=== PATIENT | male | born 1930 | race Caucasian/White ===

== ENCOUNTER 2016-11-06 09:24 | Emergency (ER) | payer MEDICARE, BC ==
[2016-11-06] MEDS ORDERED: NS 0.9% 1000 ML* 1,000 ML IV SCH (09:45)
--- NOTE | 2016-11-06 10:02 | RAD ---
HISTORY: Stroke COMPARISONS: June 24, 2013 VIEWS:1: Single frontal portable view of the chest at 9:45 AM FINDINGS: LINES AND TUBES: None. CARDIOMEDIASTINAL SILHOUETTE: The cardiomediastinal silhouette is normal for portable technique. PLEURA: The costophrenic angles are sharp. No pleural abnormalities are noted. LUNG PARENCHYMA: The lungs are clear. ABDOMEN: The upper abdomen is clear. There is no subphrenic gas. BONES AND SOFT TISSUES: No bone or soft tissue abnormalities are noted. IMPRESSION: NO ACTIVE CARDIOPULMONARY DISEASE.
--- NOTE | 2016-11-06 10:04 | RAD ---
HISTORY: Fall, altered mental status COMPARISONS: None TECHNIQUE: Multiple contiguous axial CT scans were obtained of the cervical spine without intravenous contrast, with coronal and sagittal multiplanar reformations. FINDINGS: BRAIN: The visualized brain is unremarkable CENTRAL CANAL: Evaluation of the central canal is limited on CT technique; however, there is no obvious canalicular mass or epidural hemorrhage. ALIGNMENT: The alignment is normal, without subluxation or dislocation. VERTEBRAL BODIES: There is diffuse osteopenia. There is multilevel anterolateral marginal osteophyte formation. There is no displaced fracture. JOINTS: There is diffuse facet and uncovertebral osteoarthritis MUSCULATURE: Unremarkable INTERVERTEBRAL DISCS: There is diffuse loss of intervertebral disc height. AXIAL IMAGES: C2-C3: There is bilateral facet hypertrophy. There is no significant osseous neural foraminal narrowing or central canal stenosis. C3-C4: There is a broad-based disc osteophyte complex with bilateral uncovertebral and facet hypertrophy. There is moderate right and mild left neural foraminal narrowing. There is mild narrowing of the central canal. C4-C5: There is a broad-based disc osteophyte complex with bilateral uncovertebral and facet hypertrophy. There is severe bilateral neural foraminal narrowing. There is moderate narrowing of the central canal. C5-C6: There is bilateral uncovertebral facet hypertrophy. There is severe left neural foraminal narrowing. There is moderate narrowing of the central canal. C6-C7: There is a broad-based disc osteophyte complex. There is bilateral uncovertebral and facet hypertrophy. There is severe bilateral neural foraminal narrowing. There is moderate narrowing of the central canal. C7-T1: There is no osseous neural foraminal narrowing or central canal stenosis. SOFT TISSUES: The visualized soft tissues of the neck are unremarkable. The prevertebral fat stripe is preserved. OTHER: None. IMPRESSION: 1. OSTEOPENIA. 2. DEGENERATIVE DISC DISEASE AND OSTEOARTHRITIS DESCRIBED ABOVE. 3. NO ACUTE OSSEOUS INJURY TO THE CERVICAL SPINE
--- NOTE | 2016-11-06 10:06 | RAD ---
INDICATION: Neurologic changes, code [id number]. COMPARISON: Comparison is made with a prior CT and MRI of the brain from June 24, 2013. TECHNIQUE: Contiguous axial sections of the brain were obtained from the skull base to the vertex without contrast. FINDINGS: The ventricles, cisterns and sulci are enlarged consistent with diffuse atrophy. There are multiple focal areas of decreased density in the subcortical and periventricular white matter suggestive of moderate chronic small vessel ischemic changes. There is no evidence for hemorrhage. There are calcifications within the cavernous portion of the internal carotid arteries and vertebral arteries. There is mucosal thickening within the left maxillary sinus. The paranasal sinuses and mastoid air cells otherwise appear clear. The results of this exam were called to the referring clinician at 0959 hours. IMPRESSION: 1. NO EVIDENCE FOR GROSS ACUTE INFARCT, MASS EFFECT OR HEMORRHAGE. 2. ATROPHY AND MODERATE CHRONIC SMALL VESSEL ISCHEMIC CHANGES.
[2016-11-06 10:13] LABS: Hematocrit 37 % (42-52); Hemoglobin 12.1 g/dl (14.0-18.0); Mean Corpuscular HGB Conc 33 g/dl (31-36); Mean Corpuscular Hemoglobin 31 pg (27-31); Mean Corpuscular Volume 95 fL (80-94); Mean Platelet Volume 9 um3 (7.4-10.4); Red Blood Count 3.93 10^6/ul (4.0-5.4); Red Cell Distribution Width 15 % (10.5-15); White Blood Count 5.2 10^3/ul (3.5-10.8)
[2016-11-06 10:36] LABS: Troponin I 0.03 ng/mL (<0.04)
[2016-11-06 10:44] LABS: ALT 8 U/L (7-52); AST 16 U/L (13-39); Albumin 3.9 g/dL (3.2-5.2); Alkaline Phosphatase 79 U/L (34-104); Anion Gap 6 mmol/L (2-11); BUN/Creatinine Ratio 16.1 (8-20); Blood Urea Nitrogen 20 mg/dL (6-24); C Reactive Protein < 1.00 mg/L (< 5.00); CO2 Carbon Dioxide 30 mmol/L (22-32); Calcium 9.3 mg/dL (8.6-10.3); Chloride 104 mmol/L (101-111); Cholesterol 145 mg/dL; EGFR African American 71.3 (>60); EGFR Non-African American 55.4 (>60); Globulin 3.1 g/dL (2-4); Glucose 120 mg/dL (70-100); HDL Cholesterol 53.7 mg/dL; LDL Cholesterol 76 mg/dL; Lipase 19 U/L (11.0-82.0); Potassium 3.8 mmol/L (3.5-5.0); Sodium 140 mmol/L (133-145); Triglycerides 75 mg/dL
[2016-11-06 10:58] LABS: TSH (Thyroid Stimulating Horm) 0.89 mcIU/mL (0.34-5.60)
[2016-11-06 12:12] LABS: Urine Bacteria Absent (Absent); Urine Bilirubin Negative (Negative); Urine Glucose Negative (Negative); Urine Nitrite Negative (Negative)
[2016-11-06 13:08] VITALS: BP 142/87
--- NOTE | 2016-11-16 12:16 | ED ---
Gauri Sanders Alok, scribed for Benson Daly MD on 11/06/16 at 0934 . Neurological HPI - HPI Summary HPI Summary: 85 y/o male presents to the ED BIBA called by his neighbor following possible TIA. Pt reports feeling confusion and bilateral weakness this morning following waking up at approximately 0630 after feeling fine the previous night. This bilateral weakness caused the pt to fall out of bed this morning. EMS arrived on scene at approximately 0900 and reports that pt's HR was originally irregular , then bradycardic, then NSR during transit to ED. EMS also notes that pt vomited once during transit as well. EMS denies observing any focal weakness by the pt. Pt states that currently his mental state has improved since earlier this morning. Pt denies any CP, SOB, BROCK, or neck pain. Pt states he has a PMHx of a stroke and HTD. - History of Current Complaint Chief Complaint: EDAltMentalStatus Stated Complaint: POSS STROKE Hx Obtained From: Patient, EMS Onset/Duration: Gradual Onset, Started hours ago, Resolved Timing: Intermittent Episodes Lasting: - minutes Onset Severity: Moderate Current Severity: Moderate Pain Intensity: 0 Pain Scale Used: 0-10 Numeric Character: Weak, Confusion Aggravating: Nothing Alleviating: Nothing Associated Signs and Symptoms: Positive: Confusion, Weakness. Negative: Headache, Fever, Neck Pain/Stiffness, Chest Pain, Shortness of Breath - Allergy/Home Medications Allergies/Adverse Reactions: Allergies Allergy/AdvReac Type Severity Reaction Status Date / Time Tamsulosin Allergy IMBALANCE Verified 11/06/16 10:29 PMH/Surg Hx/FS Hx/Imm Hx Endocrine/Hematology History: Denies: Hx Diabetes Cardiovascular History: Reports: Hx Hypercholesterolemia - HLD, Hx Hypertension - ON MEDICATION FOR Denies: Hx Pacemaker/ICD Respiratory History: Denies: Hx Asthma GI History: Reports: Other GI Disorders - HERNIA REPAIR History: Reports: Hx Benign Prostatic Hyperplasia Denies: Hx Dialysis, Hx Renal Disease Musculoskeletal History: Reports: Other Musculoskeletal History - RIGHT HIP REPAIR Denies: Hx Scoliosis Sensory History: Reports: Hx Cataracts, Hx Contacts or Glasses - READING Denies: Hx Hearing Aid Opthamlomology History: Reports: Hx Cataracts, Hx Contacts or Glasses - READING Neurological History: Reports: Other Neuro Impairments/Disorders - ALZHEIMERS DISEASE Psychiatric History: Denies: Hx Panic Disorder - Surgical History Surgery Procedure, Year, and Place: HIP REPLACEMENT, PROSTATE BIOPSIES, HERNIA REPAIR Hx Anesthesia Reactions: No Infectious Disease History: No Infectious Disease History: Denies: Traveled Outside the [place] in Last 30 Days - Family History Known Family History: Positive: Other Family History: No Malignant Hyperthermia. No Anesthesia Reaction - Social History Occupation: Retired Alcohol Use: None Substance Use Type: Reports: None Smoking Status (MU): Never Smoked Tobacco Review of Systems Negative: Fever Negative: Chest Pain Negative: Shortness Of Breath Positive: Vomiting Neurological: Other - Confusion Positive: Weakness. Negative: Headache All Other Systems Reviewed And Are Negative: Yes Physical Exam - Summary Physical Exam Summary: Appearance: Well-appearing, no pain distress Skin: Warm, skin color reflects adequate perfusion, dry Head/Face: Normal head/face Eyes: EOMI, PERRL ENT: Normal ENT inspection Neck: Supple, nontender Resp: CTA, breath sounds present Cardio: Bradycardic Abd: Nontender, Soft Bowel: Present Musculo: Normal, Strength, ROM intact Neuro: Normal, sensory/motor intact AxO x3. No focal weakness Psych: Affect/ mood appropriate Triage Information Reviewed: Yes Vital Signs On Initial Exam: Initial Vitals Temp Pulse Resp BP Pulse Ox 97.7 F 59 19 161/78 100 11/06/16 09:28 11/06/16 09:28 11/06/16 09:28 11/06/16 09:28 11/06/16 09:28 Vital Signs Reviewed: Yes Diagnostics - Vital Signs Vital Signs Temp Pulse Resp BP Pulse Ox 11/06/16 09:28 97.7 F 59 19 161/78 100 - Laboratory Lab Results: Lab Results 11/06/16 11/06/16 11/06/16 Range/Units 09:55 09:55 09:55 WBC 5.2 (3.5-10.8) 10^3/ul RBC 3.93 L (4.0-5.4) 10^6/ul Hgb 12.1 L (14.0-18.0) g/dl Hct 37 L (42-52) % MCV 95 H (80-94) fL MCH 31 (27-31) pg MCHC 33 (31-36) g/dl RDW 15 (10.5-15) % Plt Count 244 (150-450) 10^3/ul MPV 9 (7.4-10.4) um3 Neut % (Auto) 73.4 (38-83) % Lymph % (Auto) 20.4 L (25-47) % Mer[place] % (Auto) 4.8 (1-9) % Eos % (Auto) 0.7 (0-6) % Baso % (Auto) 0.7 (0-2) % Absolute Neuts (auto) 3.8 (1.5-7.7) 10^3/ul Absolute Lymphs (auto) 1.1 (1.0-4.8) 10^3/ul Absolute Monos (auto) 0.2 (0-0.8) 10^3/ul Absolute Eos (auto) 0 (0-0.6) 10^3/ul Absolute Basos (auto) 0 (0-0.2) 10^3/ul Absolute Nucleated RBC 0 10^3/ul Nucleated RBC % 0 INR (Anticoag Therapy) 1.03 (0.89-1.11) APTT 27.5 (26.0-36.3) seconds Sodium 140 (133-145) mmol/L Potassium 3.8 (3.5-5.0) mmol/L Chloride 104 (101-111) mmol/L Carbon Dioxide 30 (22-32) mmol/L Anion Gap 6 (2-11) mmol/L BUN 20 (6-24) mg/dL Creatinine 1.24 H (0.67-1.17) mg/dL Est GFR ( Amer) 71.3 (>60) Est GFR (Non-Af Amer) 55.4 (>60) BUN/Creatinine Ratio 16.1 (8-20) Glucose 120 H (70-100) mg/dL Lactic Acid (0.5-2.0) mmol/L Calcium 9.3 (8.6-10.3) mg/dL Magnesium 2.0 (1.9-2.7) mg/dL Total Bilirubin 0.70 (0.2-1.0) mg/dL AST 16 (13-39) U/L ALT 8 (7-52) U/L Alkaline Phosphatase 79 (34-104) U/L Troponin I 0.03 (<0.04) ng/mL C-Reactive Protein < 1.00 (< 5.00) mg/L B-Natriuretic Peptide ( - 100) pg/mL Total Protein 7.0 (6.4-8.9) g/dL Albumin 3.9 (3.2-5.2) g/dL Globulin 3.1 (2-4) g/dL Albumin/Globulin Ratio 1.3 (1-3) Triglycerides 75 mg/dL Cholesterol 145 mg/dL LDL Cholesterol 76 mg/dL HDL Cholesterol 53.7 mg/dL Lipase 19 (11.0-82.0) U/L TSH 0.89 (0.34-5.60) mcIU/mL Urine Color Urine Appearance Urine pH (5-9) Ur Specific Points (1.010-1.030) Urine Protein (Negative) Urine Ketones (Negative) Urine Blood (Negative) Urine Nitrate (Negative) Urine Bilirubin (Negative) Urine Urobilinogen (Negative) Ur Leukocyte Esterase (Negative) Urine WBC (Auto) (Absent) Urine RBC (Auto) (Absent) Ur Squamous Epith Cells (Absent) Urine Bacteria (Absent) Urine Glucose (Negative) Blood Type Antibody Screen 11/06/16 11/06/16 11/06/16 Range/Units 09:55 09:55 09:55 WBC (3.5-10.8) 10^3/ul RBC (4.0-5.4) 10^6/ul Hgb (14.0-18.0) g/dl Hct (42-52) % MCV (80-94) fL MCH (27-31) pg MCHC (31-36) g/dl RDW (10.5-15) % Plt Count (150-450) 10^3/ul MPV (7.4-10.4) um3 Neut % (Auto) (38-83) % Lymph % (Auto) (25-47) % Merrick % (Auto) (1-9) % Eos % (Auto) (0-6) % Baso % (Auto) (0-2) % Absolute Neuts (auto) (1.5-7.7) 10^3/ul Absolute Lymphs (auto) (1.0-4.8) 10^3/ul Absolute Monos (auto) (0-0.8) 10^3/ul Absolute Eos (auto) (0-0.6) 10^3/ul Absolute Basos (auto) (0-0.2) 10^3/ul Absolute Nucleated RBC 10^3/ul Nucleated RBC % INR (Anticoag Therapy) (0.89-1.11) APTT (26.0-36.3) seconds Sodium (133-145) mmol/L Potassium (3.5-5.0) mmol/L Chloride (101-111) mmol/L Carbon Dioxide (22-32) mmol/L Anion Gap (2-11) mmol/L BUN (6-24) mg/dL Creatinine (0.67-1.17) mg/dL Est GFR ( Amer) (>60) Est GFR (Non-Af Amer) (>60) BUN/Creatinine Ratio (8-20) Glucose (70-100) mg/dL Lactic Acid 1.5 (0.5-2.0) mmol/L Calcium (8.6-10.3) mg/dL Magnesium (1.9-2.7) mg/dL Total Bilirubin (0.2-1.0) mg/dL AST (13-39) U/L ALT (7-52) U/L Alkaline Phosphatase (34-104) U/L Troponin I (<0.04) ng/mL C-Reactive Protein (< 5.00) mg/L B-Natriuretic Peptide 232 H ( - 100) pg/mL Total Protein (6.4-8.9) g/dL Albumin (3.2-5.2) g/dL Globulin (2-4) g/dL Albumin/Globulin Ratio (1-3) Triglycerides mg/dL Cholesterol mg/dL LDL Cholesterol mg/dL HDL Cholesterol mg/dL Lipase (11.0-82.0) U/L TSH (0.34-5.60) mcIU/mL Urine Color Urine Appearance Urine pH (5-9) Ur Specific Points (1.010-1.030) Urine Protein (Negative) Urine Ketones (Negative) Urine Blood (Negative) Urine Nitrate (Negative) Urine Bilirubin (Negative) Urine Urobilinogen (Negative) Ur Leukocyte Esterase (Negative) Urine WBC (Auto) (Absent) Urine RBC (Auto) (Absent) Ur Squamous Epith Cells (Absent) Urine Bacteria (Absent) Urine Glucose (Negative) Blood Type A Positive Antibody Screen Negative 11/06/16 Range/Units 11:43 WBC (3.5-10.8) 10^3/ul RBC (4.0-5.4) 10^6/ul Hgb (14.0-18.0) g/dl Hct (42-52) % MCV (80-94) fL MCH (27-31) pg MCHC (31-36) g/dl RDW (10.5-15) % Plt Count (150-450) 10^3/ul MPV (7.4-10.4) um3 Neut % (Auto) (38-83) % Lymph % (Auto) (25-47) % Merrick % (Auto) (1-9) % Eos % (Auto) (0-6) % Baso % (Auto) (0-2) % Absolute Neuts (auto) (1.5-7.7) 10^3/ul Absolute Lymphs (auto) (1.0-4.8) 10^3/ul Absolute Monos (auto) (0-0.8) 10^3/ul Absolute Eos (auto) (0-0.6) 10^3/ul Absolute Basos (auto) (0-0.2) 10^3/ul Absolute Nucleated RBC 10^3/ul Nucleated RBC % INR (Anticoag Therapy) (0.89-1.11) APTT (26.0-36.3) seconds Sodium (133-145) mmol/L Potassium (3.5-5.0) mmol/L Chloride (101-111) mmol/L Carbon Dioxide (22-32) mmol/L Anion Gap (2-11) mmol/L BUN (6-24) mg/dL Creatinine (0.67-1.17) mg/dL Est GFR ( Amer) (>60) Est GFR (Non-Af Amer) (>60) BUN/Creatinine Ratio (8-20) Glucose (70-100) mg/dL Lactic Acid (0.5-2.0) mmol/L Calcium (8.6-10.3) mg/dL Magnesium (1.9-2.7) mg/dL Total Bilirubin (0.2-1.0) mg/dL AST (13-39) U/L ALT (7-52) U/L Alkaline Phosphatase (34-104) U/L Troponin I (<0.04) ng/mL C-Reactive Protein (< 5.00) mg/L B-Natriuretic Peptide ( - 100) pg/mL Total Protein (6.4-8.9) g/dL Albumin (3.2-5.2) g/dL Globulin (2-4) g/dL Albumin/Globulin Ratio (1-3) Triglycerides mg/dL Cholesterol mg/dL LDL Cholesterol mg/dL HDL Cholesterol mg/dL Lipase (11.0-82.0) U/L TSH (0.34-5.60) mcIU/mL Urine Color Yellow Urine Appearance Cloudy Urine pH 6.0 (5-9) Ur Specific Points 1.019 (1.010-1.030) Urine Protein 1+(30 mg/dl) H (Negative) Urine Ketones Negative (Negative) Urine Blood Negative (Negative) Urine Nitrate Negative (Negative) Urine Bilirubin Negative (Negative) Urine Urobilinogen Negative (Negative) Ur Leukocyte Esterase Negative (Negative) Urine WBC (Auto) Trace(0-5/hpf) (Absent) Urine RBC (Auto) 2+(6-10/hpf) H (Absent) Ur Squamous Epith Cells Present H (Absent) Urine Bacteria Absent (Absent) Urine Glucose Negative (Negative) Blood Type Antibody Screen Result Diagrams: 11/06/16 09:55 11/06/16 09:55 Lab Statement: Any lab studies that have been ordered have been reviewed, and results considered in the medical decision making process. - Radiology CXR Xray Interpretation: Positive (See Comments) - IMPRESSION: NO EVIDENCE OF CARDIOPULMONARY DISEASE Radiology Interpretation Completed By: Radiologist - CT Brain CT CT Interpretation: Positive (See Comments) - IMPRESSION: 1. NO EVIDENCE FOR GROSS ACUTE INFARCT, MASS EFFECT OR HEMORRHAGE. 2. ATROPHY AND MODERATE CHRONIC SMALL VESSEL ISCHEMIC CHANGES. CT Interpretation Completed By: Radiologist Cervical Spine CT CT Interpretation: Positive (See Comments) - IMPRESSION: 1. OSTEOPENIA. 2. DEGENERATIVE DISC DISEASE AND OSTEOARTHRITIS DESCRIBED ABOVE. 3. NO ACUTE OSSEOUS INJURY TO THE CERVICAL SPINE CT Interpretation Completed By: Radiologist - EKG 0921 Cardiac Rate: NL EKG Rhythm: Sinus Rhythm - 54 bpm Ectopy: None EKG Interpretation: ST elevation V1, V2. No reciprocal changes. Re-Evaluation - Re-Evaluation First Eval Re-Evaluation Time: 11:48 Change: Improved - Sensorium has cleared somewhat Comment: Pt has expressed decision to return home with his son Course/Dx - Diagnoses Provider Diagnoses: ALTERED MENTAL STATUS During the Visit The Following Alert/Code Occurred: Code Rios - 2611 - Physician Notifications Discussed Care of Patient With: Dr. Hurley (Hospitalist) @ 4115 - discussed possibility pt's admittance to hospital given pt refusal to be admitted Discharge - Discharge Plan Condition: Stable Disposition: HOME Patient Education Materials: Altered Mental Status (ED) Referrals: Reid Herrera MD [Primary Care Provider] - Additional Instructions: FOLLOW UP WITH YOUR DOCTOR. RETURN TO THE EMERGENCY DEPARTMENT FOR ANY WORSENING OF YOUR CONDITION; WEAKNESS , CONFUSION, CHEST PAIN, SHORTNESS OF BREATH OR QUESTIONS OR CONCERNS. The documentation as recorded by the Gauri muñoz Alok accurately reflects the service I personally performed and the decisions made by me, Benson Daly MD.
== END 2016-11-06 13:08 | disposition home or self-care (01) ==
LOC: ED 09:24
DX: R50.9 Fever, unspecified (principal); R11.2 Nausea with vomiting, unspecified; R19.7 Diarrhea, unspecified; F17.210 Nicotine dependence, cigarettes, uncomplicated
CPT/HCPCS: 36415; 70450; 71010; 72125; 80053; 80061; 81003; 81015; 83605; 83690; 83735; 83880; 84443; 84484; 85025; 85610; 85730; 86140; 86850; 86900; 86901; 93005; 99283

== ENCOUNTER 2016-11-12 06:18 | Emergency (ER) | payer MEDICARE, BC ==
[2016-11-12 10:25] LABS: Urine Bacteria Absent (Absent); Urine Bilirubin Negative (Negative); Urine Glucose Negative (Negative); Urine Nitrite Negative (Negative)
[2016-11-12 11:27] VITALS: BP 158/94
--- NOTE | 2016-11-12 11:44 | ED ---
Pipe Sanders Benjamin, scribed for Jesus Young MD on 11/12/16 at 0759 . GI/ HPI - HPI Summary HPI Summary: 85yo male BIB EMS for unable to void. Pt also reported pain in the genital area. After arrival, Pt was able to void and states he now feels better. Denies any dysuria or urinary frequency. No hx of same symptoms. Now he is asymptomatic. He has no other complaints. - History of Current Complaint Chief Complaint: EDUrogenitalProblems Time Seen by Provider: 11/12/16 07:26 Stated Complaint: DIFF URINATING Hx Obtained From: Patient, Family/Commercial Real Estate Paralegal Onset/Duration: Started Hours Ago, Resolved Timing: Constant Severity: Severe Current Severity: Mild Pain Intensity: 10 Location of Pain: Groin Associated Signs and Symptoms: Positive: Negative - Allergy/Home Medications Allergies/Adverse Reactions: Allergies Allergy/AdvReac Type Severity Reaction Status Date / Time Tamsulosin Allergy IMBALANCE Verified 11/06/16 10:29 PMH/Surg Hx/FS Hx/Imm Hx Endocrine/Hematology History: Denies: Hx Diabetes Cardiovascular History: Reports: Hx Hypercholesterolemia - HLD, Hx Hypertension - ON MEDICATION FOR Denies: Hx Pacemaker/ICD Respiratory History: Denies: Hx Asthma GI History: Reports: Other GI Disorders - HERNIA REPAIR History: Reports: Hx Benign Prostatic Hyperplasia Denies: Hx Dialysis, Hx Renal Disease Musculoskeletal History: Reports: Other Musculoskeletal History - RIGHT HIP REPAIR Denies: Hx Scoliosis Sensory History: Reports: Hx Cataracts, Hx Contacts or Glasses - READING Denies: Hx Hearing Aid Opthamlomology History: Reports: Hx Cataracts, Hx Contacts or Glasses - READING Neurological History: Reports: Other Neuro Impairments/Disorders - ALZHEIMERS DISEASE Psychiatric History: Denies: Hx Panic Disorder - Surgical History Surgery Procedure, Year, and Place: HIP REPLACEMENT, PROSTATE BIOPSIES, HERNIA REPAIR Hx Anesthesia Reactions: No Infectious Disease History: No Infectious Disease History: Denies: Traveled Outside the [place] in Last 30 Days - Family History Known Family History: Negative: Cardiac Disease, Hypertension, Diabetes - Social History Occupation: Retired Lives: With Family Alcohol Use: None Substance Use Type: Reports: None Smoking Status (MU): Never Smoked Tobacco Review of Systems Constitutional: Negative Eyes: Negative ENT: Negative Cardiovascular: Negative Respiratory: Negative Gastrointestinal: Negative Genitourinary: Negative Musculoskeletal: Negative Skin: Negative Neurological: Negative Psychological: Normal All Other Systems Reviewed And Are Negative: Yes Physical Exam - Summary Physical Exam Summary: Vital signs: reviewed General: Patient is comfortable lying in stretcher with no signs of distress HEENT: within normal limits Lungs: CTA B/L CVS: S1 & S2 present. No murmurs appreciated. ABDOMEN: Soft, non-tender. No signs of distention. No rebound no guarding, and no masses palpated. Bowel sounds are normal. EXTREMITIES: FROM in all major joints, no edema, no cyanosis or clubbing. NEURO: Alert and oriented x 2 (patient's base line). No acute neurological deficits. Speech is normal and follows commands. SKIN: Dry and warm Triage Information Reviewed: Yes Vital Signs On Initial Exam: Initial Vitals Temp Pulse Resp BP Pulse Ox 98.8 F 58 16 150/76 99 11/12/16 06:28 11/12/16 06:28 11/12/16 06:28 11/12/16 06:28 11/12/16 06:28 Vital Signs Reviewed: Yes - [place] Coma Scale Coma Scale Total: 14 Diagnostics - Vital Signs Vital Signs Temp Pulse Resp BP Pulse Ox 11/12/16 06:28 98.8 F 58 16 150/76 99 - Laboratory Lab Statement: Any lab studies that have been ordered have been reviewed, and results considered in the medical decision making process. GIGU Course/Dx - Course Assessment/Plan: UA show negative for UTI. Initially pt came for difficulty urinating. However, pt was urinated 3 times in the ED. At this point there is no need for urinary folly catheter. No dysuria or difficulty urinating or changes in frequency. At this point pt is hemodynamically stable and A&Ox2 which is baseline for him. Pt will be D/C with son. Social work aware of condition and protective services social worker reports that the pt is safe to D/C. I discussed all the findings and test results with the patient. Patient was instructed to return to the emergency room immediately if any of the symptoms return or worsens. Plan of care was discussed with the patient and understands and agrees. All questions were answered at patient satisfaction. There were no further complaints or concerns. Lung exam before discharge: CTA B/L. Good air exchange. No wheezing or crackles heard. CVS: S1 and S2 present. No murmurs appreciated. Patient is alert and oriented x 3. Patient is hemodynamically stable. Patient will be discharged home with follow up graphic editor in the next 2-3 days - Diagnoses Differential Diagnoses - Male: Urinary Tract Infection - Urinary retention, BPH Provider Diagnoses: Difficulty urinating, Urinary retention Discharge - Discharge Plan Condition: Stable Disposition: HOME Patient Education Materials: Urinary Retention in Men (ED) Referrals: Reid Herrera MD [Primary Care Provider] - The documentation as recorded by the Pipe muñoz Benjamin accurately reflects the service I personally performed and the decisions made by Hector choi Walter, MD.
== END 2016-11-12 11:40 | disposition home or self-care (01) ==
LOC: ED 06:18
DX: R33.9 Retention of urine, unspecified (principal)
CPT/HCPCS: 81003; 81015; 99282

== ENCOUNTER 2017-10-13 16:52 | Emergency (ER) | payer MEDICARE, BC ==
[2017-10-13 19:02] LABS: ABS Basophils 0 10^3/ul (0-0.2); ABS Eosinophils 0.1 10^3/ul (0-0.6); ABS Lymphocytes 1.5 10^3/ul (1.0-4.8); ABS Monocytes 0.6 10^3/ul (0-0.8); ABS Neutrophils 3.4 10^3/ul (1.5-7.7); ABS Nucleated RBC 0 10^3/ul; Eosinophil % 2.5 % (0-6); Hematocrit 36 % (42-52); Lymphocyte % 25.7 % (25-47); Mean Corpuscular HGB Conc 33 g/dl (31-36); Mean Corpuscular Hemoglobin 32 pg (27-31); Mean Corpuscular Volume 97 fL (80-94); Mean Platelet Volume 8 um3 (7.4-10.4); Nucleated Red Blood Cells % 0; Platelet Count 220 10^3/ul (150-450); Red Blood Count 3.72 10^6/ul (4.0-5.4); Red Cell Distribution Width 14 % (10.5-15); White Blood Count 5.7 10^3/ul (3.5-10.8)
[2017-10-13 19:09] LABS: EGFR Non-African American 53.3 (>60)
[2017-10-13 21:32] VITALS: BP 114/69
--- NOTE | 2017-10-13 22:05 | ED ---
La Sanders Julia, scribed for Chivo Ortiz MD on 10/13/17 at 1745 . Altered Mental Status - HPI Summary HPI Summary: This patient is a 86 year old M BIBA to [facility] accompanied by [place] staff member due to SI. The [place] staff states patient was saying I just want to kill myself, Just give me a knife. She states that he threw himself on the floor when the staff was not taking him seriously. She reports a similar incident that spontaneously resolved 10/11/17. Patient currently states Im fine . Patient has dementia. - History Of Current Complaint Chief Complaint: EDAltMentalStatus Stated Complaint: MHE Time Seen by Provider: 10/13/17 17:21 Hx Obtained From: Family/Sample Selector Onset/Duration: Resolved Timing: Intermittent - episodic Severity Currently: None Character: Agitation - Si Associated Signs And Symptoms: Positive: Negative Related History: Similar Episode/Diagnosed As: - recent similar episode Has Suicidal: Thoughts - Allergies/Home Medications Allergies/Adverse Reactions: Allergies Allergy/AdvReac Type Severity Reaction Status Date / Time MS Tamsulosin [Tamsulosin] Allergy IMBALANCE Verified 10/13/17 18:00 Home Medications: Home Medications busPIRone TAB* [Buspar TAB*] 5 mg PO BID 10/13/17 [History Confirmed 10/13/17] PMH/Surg Hx/FS Hx/Imm Hx Endocrine/Hematology History: Denies: Hx Diabetes Cardiovascular History: Reports: Hx Hypercholesterolemia - HLD, Hx Hypertension - ON MEDICATION FOR Denies: Hx Pacemaker/ICD Respiratory History: Denies: Hx Asthma GI History: Reports: Other GI Disorders - HERNIA REPAIR History: Reports: Hx Benign Prostatic Hyperplasia Denies: Hx Dialysis, Hx Renal Disease Musculoskeletal History: Reports: Other Musculoskeletal History - RIGHT HIP REPAIR Denies: Hx Scoliosis Sensory History: Reports: Hx Cataracts, Hx Contacts or Glasses - READING Denies: Hx Hearing Aid Opthamlomology History: Reports: Hx Cataracts, Hx Contacts or Glasses - READING Neurological History: Reports: Hx Dementia, Other Neuro Impairments/Disorders - ALZHEIMERS DISEASE Psychiatric History: Denies: Hx Panic Disorder - Surgical History Surgery Procedure, Year, and Place: HIP REPLACEMENT, PROSTATE BIOPSIES, HERNIA REPAIR Hx Anesthesia Reactions: No Infectious Disease History: No Infectious Disease History: Denies: Traveled Outside the US in Last 30 Days - Family History Known Family History: Negative: Cardiac Disease, Hypertension, Diabetes - Social History Alcohol Use: None Substance Use Type: Reports: None Smoking Status (MU): Never Smoked Tobacco Review of Systems Positive: Other - SI, currently resolved All Other Systems Reviewed And Are Negative: Yes - Comments Additional Review of Systems Comments: ROS is limited due to patient's dementia. Physical Exam - Summary Physical Exam Summary: Appearance: The patient is well-nourished in no acute distress and in no acute pain. Skin: The skin is warm and dry and skin color reflects adequate perfusion. HEENT: The head is normocephalic and atraumatic. The pupils are equal and reactive. The conjunctivae are clear and without drainage. Nares are patent and without drainage. Mouth reveals moist mucous membranes and the throat is without erythema and exudate. The external ears are intact. The ear canals are patent and without drainage. The tympanic membranes are intact. Neck: the neck is supple with full range of motion and non-tender. There are no carotid bruits. There is no neck vein distension. Respiratory: Chest is non-tender. Lungs are clear to auscultation and breath sounds are symmetrical and equal. Cardiovascular: Heart is regular rate and rhythm. There is no murmur or rub auscultated. There is no peripheral edema and pulses are symmetrical and equal. Abdomen: The abdomen is soft and non-tender. There are normal bowel sounds heard in all four quadrants and there is no organomegaly palpated. Musculoskeletal: There is no back tenderness noted. Extremities are non-tender with full range of motion. There is good capillary refill. There is no peripheral edema or calf tenderness elicited. Neurological: Patient is alert and oriented to person, place and time. The patient has symmetrical motor strength in all four extremities. Cranial nerves are grossly intact. Deep tendon reflexes are symmetrical and equal in all four extremities. Psychiatric: The patient has an appropriate affect and does not exhibit any anxiety or depression. Patient is calm. Triage Information Reviewed: Yes Vital Signs On Initial Exam: Initial Vitals Temp Pulse Resp BP Pulse Ox 99.2 F 55 16 125/62 98 10/13/17 17:09 10/13/17 17:09 10/13/17 17:09 10/13/17 17:10/13/17 17:09 Vital Signs Reviewed: Yes Diagnostics - Vital Signs Vital Signs Temp Pulse Resp BP Pulse Ox 10/13/17 17:09 99.2 F 55 16 125/62 98 - Laboratory Lab Results: Lab Results 10/13/17 10/13/17 Range/Units 18:45 18:45 WBC 5.7 (3.5-10.8) 10^3/ul RBC 3.72 L (4.0-5.4) 10^6/ul Hgb 12.0 L (14.0-18.0) g/dl Hct 36 L (42-52) % MCV 97 H (80-94) fL MCH 32 H (27-31) pg MCHC 33 (31-36) g/dl RDW 14 (10.5-15) % Plt Count 220 (150-450) 10^3/ul MPV 8 (7.4-10.4) um3 Neut % (Auto) 60.5 (38-83) % Lymph % (Auto) 25.7 (25-47) % [place] % (Auto) 10.6 H (1-9) % Eos % (Auto) 2.5 (0-6) % Baso % (Auto) 0.7 (0-2) % Absolute Neuts (auto) 3.4 (1.5-7.7) 10^3/ul Absolute Lymphs (auto) 1.5 (1.0-4.8) 10^3/ul Absolute Monos (auto) 0.6 (0-0.8) 10^3/ul Absolute Eos (auto) 0.1 (0-0.6) 10^3/ul Absolute Basos (auto) 0 (0-0.2) 10^3/ul Absolute Nucleated RBC 0 10^3/ul Nucleated RBC % 0 Sodium 136 (133-145) mmol/L Potassium 4.6 (3.5-5.0) mmol/L Chloride 103 (101-111) mmol/L Carbon Dioxide 30 (22-32) mmol/L Anion Gap 3 (2-11) mmol/L BUN 33 H (6-24) mg/dL Creatinine 1.28 H (0.67-1.17) mg/dL Est GFR ( Amer) 68.5 (>60) Est GFR (Non-Af Amer) 53.3 (>60) BUN/Creatinine Ratio 25.8 H (8-20) Glucose 98 (70-100) mg/dL Calcium 8.7 (8.6-10.3) mg/dL Total Bilirubin 0.40 (0.2-1.0) mg/dL AST 22 (13-39) U/L ALT 15 (7-52) U/L Alkaline Phosphatase 64 (34-104) U/L C-Reactive Protein < 1.00 (< 5.00) mg/L Total Protein 6.4 (6.4-8.9) g/dL Albumin 3.9 (3.2-5.2) g/dL Globulin 2.5 (2-4) g/dL Albumin/Globulin Ratio 1.6 (1-3) Result Diagrams: 10/13/17 18:45 10/13/17 18:45 Lab Statement: Any lab studies that have been ordered have been reviewed, and results considered in the medical decision making process. Altered Mental Statu Course/Dx - Course Course Of Treatment: Mr. Nguyen has had a couple episodes of being agitated and expressing SI in the last couple of weeks. He was fine here with no sign of infection or obvious problem. I recommended F/U with Dr. Herrera if problems continue. - Diagnoses Discharge Diagnoses: Alzheimer's dementia with behavioral disturbance Discharge - Discharge Plan Condition: Stable Disposition: HOME Patient Education Materials: Suicide Prevention for Older Adults (ED) Referrals: Redi Herrera MD [Primary Care Provider] - 1 Week Additional Instructions: RETURN TO THE EMERGENCY DEPARTMENT FOR CHANGING OR WORSENING SYMPTOMS. The documentation as recorded by the La muñoz Julia accurately reflects the service I personally performed and the decisions made by me, Chivo Ortiz MD.
== END 2017-10-13 20:30 | disposition home or self-care (01) ==
LOC: ED 16:52
DX: G30.9 Alzheimer's disease, unspecified (principal); F02.80 Dementia in other diseases classified elsewhere, unspecified severity, without behavioral disturbance, psychotic disturbance, mood disturbance, and anxiety; E78.00 Pure hypercholesterolemia, unspecified; E78.5 Hyperlipidemia, unspecified; I10 Essential (primary) hypertension; R45.851 Suicidal ideations
CPT/HCPCS: 36415; 80053; 85025; 86140; 99282

== ENCOUNTER 2017-10-19 16:25 | Emergency (ER) | payer MEDICARE, BC ==
[2017-10-19] MEDS ORDERED: NS 0.9% 1000 ML* 1,000 ML IV ONE (17:07)
[2017-10-19 17:33] LABS: ABS Basophils 0.1 10^3/ul (0-0.2); ABS Eosinophils 0.1 10^3/ul (0-0.6); ABS Lymphocytes 1.3 10^3/ul (1.0-4.8); ABS Monocytes 0.5 10^3/ul (0-0.8); ABS Neutrophils 3.7 10^3/ul (1.5-7.7); ABS Nucleated RBC 0 10^3/ul; Eosinophil % 1.4 % (0-6); Hematocrit 37 % (42-52); Hemoglobin 12.4 g/dl (14.0-18.0); Lymphocyte % 22.8 % (25-47); Mean Corpuscular HGB Conc 34 g/dl (31-36); Mean Corpuscular Hemoglobin 32 pg (27-31); Mean Corpuscular Volume 96 fL (80-94); Mean Platelet Volume 8 um3 (7.4-10.4); Nucleated Red Blood Cells % 0; Platelet Count 217 10^3/ul (150-450); Red Blood Count 3.85 10^6/ul (4.0-5.4); Red Cell Distribution Width 14 % (10.5-15); White Blood Count 5.7 10^3/ul (3.5-10.8)
[2017-10-19 18:51] LABS: Urine Appearance Clear; Urine Blood Negative (Negative); Urine Color Yellow; Urine Ketones Negative (Negative); Urine Protein Negative (Negative); Urine Specific Gravity 1.016 (1.010-1.030); Urine Urobilinogen Negative (Negative)
[2017-10-19 20:06] VITALS: BP 149/81
--- NOTE | 2017-10-20 20:36 | ED ---
Gustavo Sanders Natalie, scribed for Samantha Gamez MD on 10/19/17 at 1911 . GI/ HPI - HPI Summary HPI Summary: The patient is an 86 y/o M presenting to ED c/o decreased urinary output. Per [facility] aide, the patient is able to void, but little comes out. He has been drinking a lot of water, but long-term staff says that he has been complaining of not being able to urinate easily. The patient doesnt have a fever or flank pain. The long-term has been trying to obtain a UA on the patient for the last four days, but the patient has been unsuccessful in voiding enough. He has dementia, making it difficult for him to recall events on his own. - History of Current Complaint Chief Complaint: EDUrogenitalProblems Time Seen by Provider: 10/19/17 16:59 Stated Complaint: URINARY ISSUES Hx Obtained From: Family/Medical Lead Hx From Patient Unobtainable Due To: Dementia Onset/Duration: Started Days Ago Timing: Lasting Days Severity: Severe Current Severity: Severe Pain Intensity: 0 Associated Signs and Symptoms: Negative: Fever, Flank Pain - Allergy/Home Medications Allergies/Adverse Reactions: Allergies Allergy/AdvReac Type Severity Reaction Status Date / Time tamsulosin Allergy Unknown Verified 10/19/17 16:53 Reaction Details Home Medications: Home Medications Acetaminophen [Tylenol Extra Strength] 500 mg PO BID 10/19/17 [History Confirmed 10/19/17] Sertraline* [Zoloft*] 25 mg PO DAILY 10/19/17 [History Confirmed 10/19/17] PMH/Surg Hx/FS Hx/Imm Hx Endocrine/Hematology History: Denies: Hx Diabetes Cardiovascular History: Reports: Hx Hypercholesterolemia - HLD, Hx Hypertension - ON MEDICATION FOR Denies: Hx Pacemaker/ICD Respiratory History: Denies: Hx Asthma GI History: Reports: Other GI Disorders - HERNIA REPAIR History: Reports: Hx Benign Prostatic Hyperplasia Denies: Hx Dialysis, Hx Renal Disease Musculoskeletal History: Reports: Other Musculoskeletal History - RIGHT HIP REPAIR Denies: Hx Scoliosis Sensory History: Reports: Hx Cataracts, Hx Contacts or Glasses - READING Denies: Hx Hearing Aid Opthamlomology History: Reports: Hx Cataracts, Hx Contacts or Glasses - READING Neurological History: Reports: Hx Dementia, Other Neuro Impairments/Disorders - ALZHEIMERS DISEASE Psychiatric History: Denies: Hx Panic Disorder - Surgical History Surgery Procedure, Year, and Place: HIP REPLACEMENT, PROSTATE BIOPSIES, HERNIA REPAIR Hx Anesthesia Reactions: No Infectious Disease History: No Infectious Disease History: Denies: Traveled Outside the US in Last 30 Days - Family History Known Family History: Negative: Cardiac Disease, Hypertension, Diabetes - Social History Alcohol Use: None Substance Use Type: Reports: None Smoking Status (MU): Never Smoked Tobacco Physical Exam Vital Signs On Initial Exam: Initial Vitals Temp Pulse Resp BP Pulse Ox 97.5 F 64 18 139/80 99 10/19/17 16:31 10/19/17 16:31 10/19/17 16:31 10/19/17 16:31 10/19/17 16:31 Diagnostics - Vital Signs Vital Signs Temp Pulse Resp BP Pulse Ox 10/19/17 18:00 56 99 10/19/17 17:00 53 97 10/19/17 16:49 140/77 10/19/17 16:46 56 97 10/19/17 16:31 97.5 F 64 18 139/80 99 - Laboratory Lab Results: Lab Results 10/19/17 10/19/17 10/19/17 Range/Units 17:24 17:24 17:24 WBC 5.7 (3.5-10.8) 10^3/ul RBC 3.85 L (4.0-5.4) 10^6/ul Hgb 12.4 L (14.0-18.0) g/dl Hct 37 L (42-52) % MCV 96 H (80-94) fL MCH 32 H (27-31) pg MCHC 34 (31-36) g/dl RDW 14 (10.5-15) % Plt Count 217 (150-450) 10^3/ul MPV 8 (7.4-10.4) um3 Neut % (Auto) 65.7 (38-83) % Lymph % (Auto) 22.8 L (25-47) % Giles % (Auto) 9.0 (1-9) % Eos % (Auto) 1.4 (0-6) % Baso % (Auto) 1.1 (0-2) % Absolute Neuts (auto) 3.7 (1.5-7.7) 10^3/ul Absolute Lymphs (auto) 1.3 (1.0-4.8) 10^3/ul Absolute Monos (auto) 0.5 (0-0.8) 10^3/ul Absolute Eos (auto) 0.1 (0-0.6) 10^3/ul Absolute Basos (auto) 0.1 (0-0.2) 10^3/ul Absolute Nucleated RBC 0 10^3/ul Nucleated RBC % 0 Sodium 134 (133-145) mmol/L Potassium 4.5 (3.5-5.0) mmol/L Chloride 101 (101-111) mmol/L Carbon Dioxide 27 (22-32) mmol/L Anion Gap 6 (2-11) mmol/L BUN 31 H (6-24) mg/dL Creatinine 1.33 H (0.67-1.17) mg/dL Est GFR ( Amer) 65.6 (>60) Est GFR (Non-Af Amer) 51.0 (>60) BUN/Creatinine Ratio 23.3 H (8-20) Glucose 101 H (70-100) mg/dL Lactic Acid 0.9 (0.5-2.0) mmol/L Calcium 9.3 (8.6-10.3) mg/dL Total Bilirubin 0.60 (0.2-1.0) mg/dL AST 19 (13-39) U/L ALT 17 (7-52) U/L Alkaline Phosphatase 64 (34-104) U/L C-Reactive Protein < 1.00 (< 5.00) mg/L Total Protein 6.9 (6.4-8.9) g/dL Albumin 4.0 (3.2-5.2) g/dL Globulin 2.9 (2-4) g/dL Albumin/Globulin Ratio 1.4 (1-3) Urine Color Urine Appearance Urine pH (5-9) Ur Specific Keller (1.010-1.030) Urine Protein (Negative) Urine Ketones (Negative) Urine Blood (Negative) Urine Nitrate (Negative) Urine Bilirubin (Negative) Urine Urobilinogen (Negative) Ur Leukocyte Esterase (Negative) Urine Glucose (Negative) Urine Ascorbic Acid (Negative) 10/19/17 Range/Units 18:33 WBC (3.5-10.8) 10^3/ul RBC (4.0-5.4) 10^6/ul Hgb (14.0-18.0) g/dl Hct (42-52) % MCV (80-94) fL MCH (27-31) pg MCHC (31-36) g/dl RDW (10.5-15) % Plt Count (150-450) 10^3/ul MPV (7.4-10.4) um3 Neut % (Auto) (38-83) % Lymph % (Auto) (25-47) % Giles % (Auto) (1-9) % Eos % (Auto) (0-6) % Baso % (Auto) (0-2) % Absolute Neuts (auto) (1.5-7.7) 10^3/ul Absolute Lymphs (auto) (1.0-4.8) 10^3/ul Absolute Monos (auto) (0-0.8) 10^3/ul Absolute Eos (auto) (0-0.6) 10^3/ul Absolute Basos (auto) (0-0.2) 10^3/ul Absolute Nucleated RBC 10^3/ul Nucleated RBC % Sodium (133-145) mmol/L Potassium (3.5-5.0) mmol/L Chloride (101-111) mmol/L Carbon Dioxide (22-32) mmol/L Anion Gap (2-11) mmol/L BUN (6-24) mg/dL Creatinine (0.67-1.17) mg/dL Est GFR ( Amer) (>60) Est GFR (Non-Af Amer) (>60) BUN/Creatinine Ratio (8-20) Glucose (70-100) mg/dL Lactic Acid (0.5-2.0) mmol/L Calcium (8.6-10.3) mg/dL Total Bilirubin (0.2-1.0) mg/dL AST (13-39) U/L ALT (7-52) U/L Alkaline Phosphatase (34-104) U/L C-Reactive Protein (< 5.00) mg/L Total Protein (6.4-8.9) g/dL Albumin (3.2-5.2) g/dL Globulin (2-4) g/dL Albumin/Globulin Ratio (1-3) Urine Color Yellow Urine Appearance Clear Urine pH 5.0 (5-9) Ur Specific Keller 1.016 (1.010-1.030) Urine Protein Negative (Negative) Urine Ketones Negative (Negative) Urine Blood Negative (Negative) Urine Nitrate Negative (Negative) Urine Bilirubin Negative (Negative) Urine Urobilinogen Negative (Negative) Ur Leukocyte Esterase Negative (Negative) Urine Glucose Negative (Negative) Urine Ascorbic Acid * H (Negative) Result Diagrams: 10/19/17 17:24 10/19/17 17:24 Lab Statement: Any lab studies that have been ordered have been reviewed, and results considered in the medical decision making process. Re-Evaluation - Re-Evaluation First Eval Re-Evaluation Time: 19:20 - abdomen remains benign, pt able to void, no abd distension. Pt ambulates to bathroom. Denies pain. Change: Improved GIGU Course/Dx - Course Course Of Treatment: post void bladder scan is 242ml. With pt's allergy to tamsulosin, suspect hx BPH. - Diagnoses Provider Diagnoses: Mild dehydration, Urinary dribbling, Urinary frequency Discharge - Discharge Plan Condition: Stable Disposition: HOME Patient Education Materials: Benign Prostatic Hypertrophy (ED) Referrals: Reid Herrera MD [Primary Care Provider] - 2 Days Additional Instructions: Your urine sample today showed no sign of infection or blood. Your blood work was unremarkable except for mildly decreased kidney function which could be due to mild dehydration. You were given one liter of IV normal saline while in the ER, and you were able to void spontaneously. You do have retained urine in your bladder after you void, which can be due to prostatic hypertrophy. You should follow up with Dr. Herrera regarding this, who may want to refer you to urology if it becomes a problem. There is no emergency treatment needed for this at this time. Return to the ER if you have any new or worsening symptoms. The documentation as recorded by the Gustavo muñoz Natalie accurately reflects the service I personally performed and the decisions made by , Samantha Gamez MD.
== END 2017-10-19 19:58 | disposition home or self-care (01) ==
LOC: ED 16:25
DX: N39.43 Post-void dribbling (principal); R35.0 Frequency of micturition; E86.0 Dehydration; Z88.8 Allergy status to other drugs, medicaments and biological substances
CPT/HCPCS: 36415; 80053; 81003; 83605; 85025; 86140; 99283

== ENCOUNTER 2017-10-26 09:11 | Inpatient (IN) | payer MEDICARE, BC ==
[2017-10-26] MEDS ORDERED: NS 0.9% 1000 ML* 1,000 ML IV ONE (09:31)
[2017-10-26 09:57] LABS: ABS Basophils 0.1 10^3/ul (0-0.2); ABS Eosinophils 0.1 10^3/ul (0-0.6); ABS Lymphocytes 1.5 10^3/ul (1.0-4.8); ABS Monocytes 0.4 10^3/ul (0-0.8); ABS Neutrophils 4.1 10^3/ul (1.5-7.7); ABS Nucleated RBC 0 10^3/ul; Eosinophil % 0.9 % (0-6); Hematocrit 37 % (42-52); Hemoglobin 12.3 g/dl (14.0-18.0); Lymphocyte % 24.5 % (25-47); Mean Corpuscular HGB Conc 34 g/dl (31-36); Mean Corpuscular Hemoglobin 33 pg (27-31); Mean Corpuscular Volume 97 fL (80-94); Mean Platelet Volume 8 um3 (7.4-10.4); Nucleated Red Blood Cells % 0; Platelet Count 212 10^3/ul (150-450); Red Blood Count 3.79 10^6/ul (4.0-5.4); Red Cell Distribution Width 14 % (10.5-15)
[2017-10-26 10:04] LABS: INR 0.99 (0.77-1.02)
[2017-10-26 10:12] LABS: EGFR Non-African American 52.3 (>60)
[2017-10-26 10:28] LABS: Urine Appearance Cloudy; Urine Blood 3+ (Negative); Urine Color Amber; Urine Ketones Negative (Negative); Urine Protein 1+(30 mg/dL) (Negative); Urine Specific Gravity 1.019 (1.010-1.030); Urine Urobilinogen Negative (Negative)
--- NOTE | 2017-10-26 10:56 | RAD ---
Indication: Syncope. CT of the brain was performed without IV contrast. Ventricular structures are midline. No midline shift is noted. Central and cortical atrophy is noted. When compared to previous exam of November 06, 2016 overall findings are unchanged. Periventricular lucency consistent with chronic ischemic White matter change is noted. Mastoid air cells are well aerated. Left maxillary sinus is opacified. IMPRESSION: No intracranial mass or hemorrhage is noted. Atrophy with chronic ischemic White matter change.
[2017-10-26] MEDS ORDERED: Magnesium Hydroxide LIQ* 30 ML UDC PO PRN (11:34)
[2017-10-26] MEDS ORDERED: Ondansetron INJ* 2 MG/ML VIAL IV PRN (11:34)
[2017-10-26] MEDS ORDERED: Acetaminophen TAB* 325 MG PO PRN (11:34)
--- NOTE | 2017-10-26 11:38 | RAD ---
Indication: Syncope. Single frontal view of the chest performed at 0956 hours was reviewed. Comparison is made with previous exam dated November 06, 2016. No mediastinal shift is noted. There is cardiomegaly present. Lung fuentes are clear. IMPRESSION: NO ACTIVE CARDIOPULMONARY DISEASE IS NOTED.
[2017-10-26] MEDS ORDERED: NS 0.9% 1000 ML* 1,000 ML IV SCH ×2 (11:45→11:53)
[2017-10-26] MEDS: Cephalexin CAP* 500 MG PO SCH ×3 (13:32→20:04)
[2017-10-26] MEDS: Heparin VIAL(*) 5000 UNITS/ML VIAL (FIVE THOUSAND) SUBCUT SCH ×2 (13:32→20:04)
--- NOTE | 2017-10-26 13:54 | RAD ---
Indication: Constipation, urinary retention. Flat and decubitus views of the abdomen demonstrates no free air. No dilated loops of bowel are noted. Bilateral hip replacements are noted. No organomegaly is noted. This psoas margins are unremarkable. IMPRESSION: No free air or obstruction is noted. Bilateral hip replacements are noted.
--- NOTE | 2017-10-26 19:18 | HP ---
ADMISSION HISTORY AND PHYSICAL: DATE OF ADMISSION: 10/26/17 PRIMARY CARE PROVIDER: Dr. Herrera. HEALTHCARE PROXY: His son. CODE STATUS: Full. SOURCE OF INFORMATION: History obtained from interview with ED provider and aide at bedside from [facility]. RELIABILITY: Good. CHIEF COMPLAINT: Loss of consciousness. HISTORY OF PRESENT ILLNESS: This is an 86-year-old gentleman, past medical history of a CVA in 2012, who had been in his usual state of health except recently decreasing appetite, not eating much or drinking much as well as noted to have constipation and difficulty urinating, who woke up today and seemed " not right", sit up and walked a little bit with the aide, got to the door and started shaking, was still talking and moving, continued to walk little bit and then his legs "gave out" and he fell to the ground. He was able to stand with some assistance and was put back in bed at which time his "eyes rolled back in his head." He was noted still be breathing, but he was unresponsive for 3 to 5 minutes. After he woke up, he was not confused and noted that he felt "weak and tired and just needed to wake up." He had several episodes of "dry heaving. " Because of this episode of unresponsiveness, he was brought to the emergency room. The aide at the bedside notes that he has had several weeks approximately 2 to 3 of difficulty urinating associated with decrease of food intake. He was recently started on Flomax, Colace, and Abilify this morning at 6 a.m. Additionally, he was noted constipation for similar approximately last 2 to 3 weeks. Review of charts note that in June 2013 he was admitted with a CVA after presenting with dizziness and a fall. At that time, his heart rate was noted to be 40s to 50s. On his presentation, he was noted a heart rate of 40s. Hospitalist was consulted for admission. PAST MEDICAL HISTORY: 1. Hypertension. 2. BPH. 3. Hyperlipidemia. 4. CVA in 2012. 5. Bilateral hip replacement. 6. Prostate cancer, status post radiation. 7. Left inguinal hernia. 8. Alzheimer's dementia. MEDICATIONS: Obtained from [facility] includes: 1. Abilify 2 mg 1 tablet in the morning for depression. 2. Atorvastatin 10 mg daily. 3. Colace 100 mg by mouth daily for constipation. 4. Donepezil 5 mg daily. 5. Ensure liquid 1 can daily. 6. Flomax 0.4 mg daily. 7. Lisinopril 5 mg daily. 8. Zoloft 25 mg daily. 9. Tylenol 500 mg twice daily as needed for pain. ALLERGIES: No known drug allergies listed at [facility]. Apparently, TAMSULOSIN was listed in our medical record, but I did not see at this time. FAMILY HISTORY: No CAD or CVAs, has a history of prostate cancer. 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 No tobacco, illicits, or alcohol. He lives in [place]. REVIEW OF SYSTEMS: Positive for constipation, urinary hesitancy, decreased p.o. intake which is abnormal for the patient. PHYSICAL EXAMINATION GENERAL: Thin man appeared stated age, interactive, no apparent distress. VITAL SIGNS: When seen by this author, blood pressure 113/56; heart rate was at 45, increased to 75 with kicking of his legs; respiratory rate is 12; T-max in the emergency room is 97 degrees Fahrenheit; O2 sat is 98% on room air. HEENT: Oropharynx is dry. He has no lesions. NECK: Non-elevated JVD. No cervical or supraclavicular lymphadenopathy. LUNGS: Clear to auscultation bilaterally. HEART: Regular rate and rhythm. No murmurs, rubs, or gallops. ABDOMEN: Soft, nontender, nondistended. EXTREMITIES: Warm and well perfused without clubbing, cyanosis, or edema. NEUROLOGIC: He is alert and oriented x1 to himself. Cannot name that he is in the hospital or the year. He is moving all extremities. 5/5 strength throughout. No drift. PSYCHIATRY: No apparent anxiety, agitation, depression, specifically denies suicidality. DIAGNOSTIC STUDIES/LAB DATA: Labs reviewed, hemoglobin 12.3, platelets 212. White blood cell count is 6.0. D-dimer is 498. Sodium 140, potassium 3.9, chloride 105, bicarb 25, BUN 31, creatinine 1.3, lactic acid 2.7, TSH 1.8. Urine notable for protein blood and white blood cells, absent for bacteria. Influenza A and B are negative. EKG, sinus bradycardia, ventricular rate of 44, normal limit axis, normal limit R- wave progression. No Qs. ST flattening laterally in V5 and V6. Chest x-ray, no active cardiopulmonary disease and brain CT, no intracranial mass or hemorrhages noted. Atrophy with chronic ischemic white matter changes. ASSESSMENT AND PLAN: This is an 86-year-old gentleman, presenting to the hospital after feeling unwell, then losing consciousness for several minutes. The return of consciousness without associated tongue biting or confusion. 1. Syncope argues against seizure episode, low suspicion for cerebrovascular accident with intact neurological exam, rapid return to normal and low suspicion for pulmonary embolism with concordant bradycardia, absence of shortness of breath. Low suspicion for myocardial infarction with rapid return to normal and normal troponin. We will continue to trend troponin, next at 1 p.m. for 2 additional checks and in the setting of dehydration, certainly that could contribute; however, the bradycardia seems likely etiology for the loss of consciousness in conjunction with dehydration. Plan on echocardiogram when available. He was noted to be bradycardic to the 40s on his hospital stay in 2012. Orthostatics performed at this time indicated a drop from 99 systolic to 69 sitting to standing. We will replete with normal saline. 2. Bradycardia, as noted above, history of bradycardia, no AV maximino blockers, is on 3 new medications including Colace, Abilify and tamsulosin started today. He has been on tamsulosin in the past. His heart rate was able to increase to 75 with activity, which is reassuring. Continue to trend troponin as noted above and check transthoracic echocardiogram. TSH is within normal limits. 3. Elevated lactic acidosis. Continue to trend. 4. Benign prostatic hyperplasia. Continue finasteride and Flomax. 5. Chronic kidney disease, dose meds appropriately. 6. Sterile pyuria in the setting of urinary urgency, concern for urinary tract infection. Currently, bladder scan indicate less than 190 some cc of fluids less than retention, although had already been straight cath for urine sample. He may be retaining. We will start on Keflex 500 mg 4 times daily. Follow urine culture. Certainly constipation can be contributing to urinary retention and bradycardia. 7. Constipation, treat aggressively is may be etiology of bladder retention and potentially even bradycardia and syncope. Check abdominal film and then started on MiraLAX and/or mag citrate. 8. DVT prophylaxis. Heparin subcu. [id number]/[facility] #: [id number] [facility]
[2017-10-26] MEDS: Sertraline* 25 MG TAB PO SCH (20:04)
[2017-10-26] MEDS: Senna TAB PO SCH (20:04)
[2017-10-26] MEDS: Docusate CAP* 100 MG PO SCH (20:04)
[2017-10-26] MEDS ORDERED: Haloperidol INJ IV/IM* 5 MG/ML AMP IV ONE (21:34)
--- NOTE | 2017-10-26 23:39 | ED ---
Maxwell Sanders Tiffany, scribed for Samantha Gamez MD on 10/26/17 at 0950 . Syncope/Near Syncope - HPI Summary HPI Summary: The patient is an 86 year old M TERRELLA accompanied by nurse Shelly aide from custodial Oleg, s/p syncopal episode 08:30 today. Patient is awake and communicating upon evaluation. Symptoms aggravated by nothing. Symptoms alleviated by nothing. Reports weakness and dizziness. Says he just feels really week. Denies abdominal pain and headache. In room, BP was 108/54, heart rate was 43 BMP, resp 100% and 16. Vomited about 100 cc of bile during evaluation. francisco Bravo, states that pt received his first dose of abilify and tamsulosin this am. In prior record pt was listed as allergic to tamsulosin , although the reaction could not be verified, so this allergy is not listed in today's record. Shelly witnessed the fall. She says that patient seemed weak while helping him up for breakfast. Patient held onto Infrafone arm and grabbed fridge as he collapsed on ground. Patient still responsive at the time so he laid back on bed. Eyes rolled back and passed out. Shelly reports that patient was unresponsive for 3 minutes s/p syncope. Vomited a little after. No head injury. Shelly reports recent incontinence and shakes, but not seizure shakes. Of note, pt was seen by me as a patient in the ED on 10/19/17 for urinary issues and he was ambulatory and conversant. He has baseline dementia. Pt's HR on was in the 50's and pt was asymptomatic with this. Pt appears much more frail and subdued than he did 8 days ago, and his HR is slower. - History Of Current Complaint Chief Complaint: EDSyncope Time Seen by Provider: 10/26/17 09:25 Hx Obtained From: Patient, Other: - tailor's aide from custodial Onset/Duration: Sudden Onset - 08:30 today, Lasting Minutes, Resolved Timing: Seconds Context: Witnessed - By aide Activity At Onset: Other - Walking to breakfast Associated Head Trauma: No Aggravating Factor(s): Nothing Alleviating Factor(s): Nothing Associated Signs And Symptoms: Negative - Abdominal pain, headache, Dizzy, Weakness - Allergies/Home Medications Allergies/Adverse Reactions: Allergies Allergy/AdvReac Type Severity Reaction Status Date / Time No Known Allergies Allergy Verified 10/26/17 10:13 Home Medications: Home Medications ARIPiprazole TAB* [Abilify TAB*] 2 mg PO DAILY 10/26/17 [History Confirmed ] Docusate CAP* [Colace Cap*] 100 mg PO DAILY 10/26/17 [History Confirmed 10/26/17 ] Lactose-Reduced Food [Ensure Liquid] 237 ml PO DAILY 10/26/17 [History Confirmed 10/26/17] PMH/Surg Hx/FS Hx/Imm Hx Previously Healthy: No Endocrine/Hematology History: Denies: Hx Diabetes Cardiovascular History: Reports: Hx Hypercholesterolemia - HLD, Hx Hypertension Denies: Hx Pacemaker/ICD Respiratory History: Denies: Hx Asthma GI History: Reports: Other GI Disorders - HERNIA REPAIR History: Reports: Hx Benign Prostatic Hyperplasia Denies: Hx Dialysis, Hx Renal Disease Musculoskeletal History: Reports: Other Musculoskeletal History - RIGHT HIP REPAIR Denies: Hx Scoliosis Sensory History: Reports: Hx Cataracts, Hx Contacts or Glasses - READING Denies: Hx Hearing Aid Opthamlomology History: Reports: Hx Cataracts, Hx Contacts or Glasses - READING Neurological History: Reports: Hx Dementia Psychiatric History: Denies: Hx Panic Disorder - Surgical History Surgery Procedure, Year, and Place: HIP REPLACEMENT, PROSTATE BIOPSIES, HERNIA REPAIR Hx Anesthesia Reactions: No Infectious Disease History: No Infectious Disease History: Denies: Traveled Outside the [place] in Last 30 Days - Family History Known Family History: Negative: Cardiac Disease, Hypertension, Diabetes - Social History Lives: At The [facility] Alcohol Use: None Hx Substance Use: No Substance Use Type: Reports: None Hx Tobacco Use: No Smoking Status (MU): Never Smoked Tobacco Review of Systems Constitutional: Negative Cardiovascular: Negative Respiratory: Negative Positive: Vomiting - After syncopal episode and during evaluation. Negative: Abdominal Pain Musculoskeletal: Negative - head injury Neurological: Other - Dizziness Positive: Weakness, Syncope - 08:30 today, resolved at time of evaluation. Negative: Headache Psychological: Normal All Other Systems Reviewed And Are Negative: Yes Physical Exam - Summary Physical Exam Summary: Appearance: Ill-appearing, moderate pain distress, Well-nourished, appears frail , speaks softly Skin: Warm, color reflects adequate perfusion Head: Normal Head/Face inspection Eyes: Conjunctiva clear ENT: Normal inspection Neck: Supple, no nodes, no JVD. Respiratory: Lungs clear, Normal breath sounds, no respiratory distress Cardio: bradycardic Abdomen: soft, nontender Bowel sounds: present Musculoskeletal: Strength Intact/ ROM intact. No calf tenderness. No edema. Neuro: Alert, muscle tone normal, facial symmetry, speech normal, sensory/motor intact A&O to name only, CN II-XII intact, Motor function 5/5, Sensations intact, Gait not tested Psychological: Normal Triage Information Reviewed: Yes Vital Signs On Initial Exam: Initial Vitals Temp Pulse Resp BP Pulse Ox 97.0 F 47 18 109/48 97 10/26/17 09:22 10/26/17 09:22 10/26/17 09:22 10/26/17 09:22 10/26/17 09:22 Vital Signs Reviewed: Yes Diagnostics - Vital Signs Vital Signs Temp Pulse Resp BP Pulse Ox 10/26/17 09:22 97.0 F 47 18 109/48 97 - Laboratory Lab Results: Lab Results 10/26/17 10/26/17 10/26/17 Range/Units 09:46 09:47 09:47 WBC 6.0 (3.5-10.8) 10^3/ul RBC 3.79 L (4.0-5.4) 10^6/ul Hgb 12.3 L (14.0-18.0) g/dl Hct 37 L (42-52) % MCV 97 H (80-94) fL MCH 33 H (27-31) pg MCHC 34 (31-36) g/dl RDW 14 (10.5-15) % Plt Count 212 (150-450) 10^3/ul MPV 8 (7.4-10.4) um3 Neut % (Auto) 67.7 (38-83) % Lymph % (Auto) 24.5 L (25-47) % [place] % (Auto) 6.0 (0-7) % Eos % (Auto) 0.9 (0-6) % Baso % (Auto) 0.9 (0-2) % Absolute Neuts (auto) 4.1 (1.5-7.7) 10^3/ul Absolute Lymphs (auto) 1.5 (1.0-4.8) 10^3/ul Absolute Monos (auto) 0.4 (0-0.8) 10^3/ul Absolute Eos (auto) 0.1 (0-0.6) 10^3/ul Absolute Basos (auto) 0.1 (0-0.2) 10^3/ul Absolute Nucleated RBC 0 10^3/ul Nucleated RBC % 0 INR (Anticoag Therapy) (0.77-1.02) D-Dimer, Quantitative (Less Than 230) ng/mL Sodium 140 (133-145) mmol/L Potassium 3.9 (3.5-5.0) mmol/L Chloride 105 (101-111) mmol/L Carbon Dioxide 25 (22-32) mmol/L Anion Gap 10 (2-11) mmol/L BUN 31 H (6-24) mg/dL Creatinine 1.30 H (0.67-1.17) mg/dL Est GFR ( Amer) 67.3 (>60) Est GFR (Non-Af Amer) 52.3 (>60) BUN/Creatinine Ratio 23.8 H (8-20) Glucose 139 H (70-100) mg/dL Lactic Acid (0.5-2.0) mmol/L Calcium 9.3 (8.6-10.3) mg/dL Magnesium 2.0 (1.9-2.7) mg/dL Total Bilirubin 0.70 (0.2-1.0) mg/dL AST 19 (13-39) U/L ALT 11 (7-52) U/L Alkaline Phosphatase 62 (34-104) U/L Troponin I 0.03 (<0.04) ng/mL B-Natriuretic Peptide ( - 100) pg/mL Total Protein 6.6 (6.4-8.9) g/dL Albumin 3.9 (3.2-5.2) g/dL Globulin 2.7 (2-4) g/dL Albumin/Globulin Ratio 1.4 (1-3) TSH 1.88 (0.34-5.60) mcIU/mL Urine Color Urine Appearance Urine pH (5-9) Ur Specific [place] (1.010-1.030) Urine Protein (Negative) Urine Ketones (Negative) Urine Blood (Negative) Urine Nitrate (Negative) Urine Bilirubin (Negative) Urine Urobilinogen (Negative) Ur Leukocyte Esterase (Negative) Urine WBC (Auto) (Absent) Urine RBC (Auto) (Absent) Urine Bacteria (Absent) Urine Glucose (Negative) Urine Ascorbic Acid (Negative) Influenza A (Rapid) Negative (Negative) Influenza B (Rapid) Negative (Negative) 10/26/17 10/26/17 10/26/17 Range/Units 09:47 09:47 09:47 WBC (3.5-10.8) 10^3/ul RBC (4.0-5.4) 10^6/ul Hgb (14.0-18.0) g/dl Hct (42-52) % MCV (80-94) fL MCH (27-31) pg MCHC (31-36) g/dl RDW (10.5-15) % Plt Count (150-450) 10^3/ul MPV (7.4-10.4) um3 Neut % (Auto) (38-83) % Lymph % (Auto) (25-47) % [place] % (Auto) (0-7) % Eos % (Auto) (0-6) % Baso % (Auto) (0-2) % Absolute Neuts (auto) (1.5-7.7) 10^3/ul Absolute Lymphs (auto) (1.0-4.8) 10^3/ul Absolute Monos (auto) (0-0.8) 10^3/ul Absolute Eos (auto) (0-0.6) 10^3/ul Absolute Basos (auto) (0-0.2) 10^3/ul Absolute Nucleated RBC 10^3/ul Nucleated RBC % INR (Anticoag Therapy) 0.99 (0.77-1.02) D-Dimer, Quantitative 498 H (Less Than 230) ng/mL Sodium (133-145) mmol/L Potassium (3.5-5.0) mmol/L Chloride (101-111) mmol/L Carbon Dioxide (22-32) mmol/L Anion Gap (2-11) mmol/L BUN (6-24) mg/dL Creatinine (0.67-1.17) mg/dL Est GFR ( Amer) (>60) Est GFR (Non-Af Amer) (>60) BUN/Creatinine Ratio (8-20) Glucose (70-100) mg/dL Lactic Acid 2.7 H* (0.5-2.0) mmol/L Calcium (8.6-10.3) mg/dL Magnesium (1.9-2.7) mg/dL Total Bilirubin (0.2-1.0) mg/dL AST (13-39) U/L ALT (7-52) U/L Alkaline Phosphatase (34-104) U/L Troponin I (<0.04) ng/mL B-Natriuretic Peptide 90 ( - 100) pg/mL Total Protein (6.4-8.9) g/dL Albumin (3.2-5.2) g/dL Globulin (2-4) g/dL Albumin/Globulin Ratio (1-3) TSH (0.34-5.60) mcIU/mL Urine Color Urine Appearance Urine pH (5-9) Ur Specific [place] (1.010-1.030) Urine Protein (Negative) Urine Ketones (Negative) Urine Blood (Negative) Urine Nitrate (Negative) Urine Bilirubin (Negative) Urine Urobilinogen (Negative) Ur Leukocyte Esterase (Negative) Urine WBC (Auto) (Absent) Urine RBC (Auto) (Absent) Urine Bacteria (Absent) Urine Glucose (Negative) Urine Ascorbic Acid (Negative) Influenza A (Rapid) (Negative) Influenza B (Rapid) (Negative) 10/26/17 Range/Units 10:10 WBC (3.5-10.8) 10^3/ul RBC (4.0-5.4) 10^6/ul Hgb (14.0-18.0) g/dl Hct (42-52) % MCV (80-94) fL MCH (27-31) pg MCHC (31-36) g/dl RDW (10.5-15) % Plt Count (150-450) 10^3/ul MPV (7.4-10.4) um3 Neut % (Auto) (38-83) % Lymph % (Auto) (25-47) % [place] % (Auto) (0-7) % Eos % (Auto) (0-6) % Baso % (Auto) (0-2) % Absolute Neuts (auto) (1.5-7.7) 10^3/ul Absolute Lymphs (auto) (1.0-4.8) 10^3/ul Absolute Monos (auto) (0-0.8) 10^3/ul Absolute Eos (auto) (0-0.6) 10^3/ul Absolute Basos (auto) (0-0.2) 10^3/ul Absolute Nucleated RBC 10^3/ul Nucleated RBC % INR (Anticoag Therapy) (0.77-1.02) D-Dimer, Quantitative (Less Than 230) ng/mL Sodium (133-145) mmol/L Potassium (3.5-5.0) mmol/L Chloride (101-111) mmol/L Carbon Dioxide (22-32) mmol/L Anion Gap (2-11) mmol/L BUN (6-24) mg/dL Creatinine (0.67-1.17) mg/dL Est GFR ( Amer) (>60) Est GFR (Non-Af Amer) (>60) BUN/Creatinine Ratio (8-20) Glucose (70-100) mg/dL Lactic Acid (0.5-2.0) mmol/L Calcium (8.6-10.3) mg/dL Magnesium (1.9-2.7) mg/dL Total Bilirubin (0.2-1.0) mg/dL AST (13-39) U/L ALT (7-52) U/L Alkaline Phosphatase (34-104) U/L Troponin I (<0.04) ng/mL B-Natriuretic Peptide ( - 100) pg/mL Total Protein (6.4-8.9) g/dL Albumin (3.2-5.2) g/dL Globulin (2-4) g/dL Albumin/Globulin Ratio (1-3) TSH (0.34-5.60) mcIU/mL Urine Color Pinky Urine Appearance Cloudy Urine pH 5.0 (5-9) Ur Specific [place] 1.019 (1.010-1.030) Urine Protein 1+(30 mg/dl) H (Negative) Urine Ketones Negative (Negative) Urine Blood 3+ H (Negative) Urine Nitrate Negative (Negative) Urine Bilirubin Negative (Negative) Urine Urobilinogen Negative (Negative) Ur Leukocyte Esterase Negative (Negative) Urine WBC (Auto) 3+(>20/hpf) H (Absent) Urine RBC (Auto) 3+(>10/hpf) H (Absent) Urine Bacteria Absent (Absent) Urine Glucose Negative (Negative) Urine Ascorbic Acid * H (Negative) Influenza A (Rapid) (Negative) Influenza B (Rapid) (Negative) Result Diagrams: 10/26/17 09:47 10/26/17 09:47 Lab Statement: Any lab studies that have been ordered have been reviewed, and results considered in the medical decision making process. - Radiology CXR Radiology Interpretation Completed By: Radiologist - NO ACTIVE CARDIOPULMONARY DISEASE IS NOTED. ED physician has reviewed this radiology report. - CT Brain CT Interpretation Completed By: Radiologist - No intracranial mass or hemorrhage is noted. Atrophy with chronic ischemic White matter change. ED physician has reviewed this radiology report. - EKG 09:35 Cardiac Rate: Bradycardia - 44 BPM EKG Rhythm: Sinus Bradycardia EKG Interpretation: Nml AVIVCT. Nml QTc. Nml axis. EKG Comparison: No Significant Change - From 11/16/16 Re-Evaluation - Re-Evaluation First Eval Re-Evaluation Time: 10:20 Change: Unchanged Comment: Patient looks the same. Heart rate still in the 40s. Course/Dx Course Of Treatment: At 09:42, spoke with Reid Nguyen Jr (oldest son), who requested full code but does not have power of rocket test fire worker. At 09:48, left a voicemail with Rohit Nguyen (son with power of rocket test fire worker) using number given to us by Reid Lal, which differs from number in our system. At 09:54, left another voicemail with Sonido Nguyen (another son). At 10:21, Benito called back and requested full code. Allergies noted. Medications reviewed this visit. Aware of 2.7 lactic acid at 10:17. EKG no change from 11/16/16. CXR reveals, per radiologist, NO ACTIVE CARDIOPULMONARY DISEASE IS NOTED. CT Brain reveals No intracranial mass or hemorrhage is noted. Atrophy with chronic ischemic White matter change. Patient will be admitted to Dr. Angelo (hospitalist). Spoke with Sonido (son) at 12:07, who will check on paperwork for code status. - Diagnoses Differential Diagnosis/HQI/PQRI: Positive: Dysrhythmia, Hypovolemia, Myocardial Infarction, Medication Reaction, Seizure Provider Diagnoses: Syncope, Bradycardia - Physician Notifications Discussed Care of Patient With: Xu Angelo Time Discussed With Above Provider: 10:42 Instructed by Provider To: Other - Dr. Angelo (hospitalist) made aware of patient. Agrees to admit. Discharge - Discharge Plan Condition: Improved Disposition: ADMITTED TO [facility] documentation as recorded by the Maxwell muñoz Tiffany accurately reflects the service I personally performed and the decisions made by , Samantha Gamez MD.
[2017-10-27] MEDS: Heparin VIAL(*) 5000 UNITS/ML VIAL (FIVE THOUSAND) SUBCUT SCH ×3 (06:26→20:36)
[2017-10-27] MEDS: Finasteride TAB* 5 MG PO SCH (08:38)
[2017-10-27] MEDS: Docusate CAP* 100 MG PO SCH ×2 (08:38→20:36)
[2017-10-27] MEDS: Cephalexin CAP* 500 MG PO SCH ×4 (08:38→20:36)
[2017-10-27] MEDS: Atorvastatin* 10 MG TAB PO SCH (08:38)
[2017-10-27] MEDS: Tamsulosin CAP* 0.4 MG PO SCH (08:39)
[2017-10-27] MEDS: Senna TAB PO SCH ×2 (08:39→20:36)
[2017-10-27] MEDS: Lisinopril TAB* 5 MG PO SCH (08:39)
[2017-10-27] MEDS ORDERED: Donepezil TAB* 5 MG PO SCH (09:00)
--- NOTE | 2017-10-27 10:25 | PN ---
Subjective Date of Service: 10/27/17 Interval History: Events reviewed Declining all medications Retaining more urine but resisting mcadams catheter. Discussed with son and if need OK to place Carmen into 30s overnight while asleep Denies CP/SOB/LH Objective Active Medications: Acetaminophen (Tylenol Tab*) 650 mg PO Q4H PRN PRN Reason: FEVER/PAIN Atorvastatin Calcium (Lipitor*) 10 mg PO QAM [facility] Last Admin: 10/27/17 08:38 Dose: Not Given Cephalexin HCl (Keflex Cap*) 500 mg PO QID [facility] Last Admin: 10/27/17 08:38 Dose: Not Given Docusate Sodium (Colace Cap*) 100 mg PO BID [facility] Last Admin: 10/27/17 08:38 Dose: Not Given Donepezil HCl (Aricept Tab*) 5 mg PO QAM [facility] Last Admin: 10/27/17 08:38 Dose: Not Given Finasteride (Proscar Tab*) 5 mg PO DAILY [facility] Last Admin: 10/27/17 08:38 Dose: Not Given Heparin Sodium (Porcine) (Heparin Vial(*)) 5,000 units SUBCUT Q8HR [facility] Last Admin: 10/27/17 06:26 Dose: Not Given Lisinopril (Prinivil Tab*) 5 mg PO QAM [facility] Last Admin: 10/27/17 08:39 Dose: Not Given Magnesium Hydroxide (Milk Of Magnesia Liq*) 30 ml PO Q4H PRN PRN Reason: CONSTIPATION Ondansetron HCl (Zofran Inj*) 4 mg IV Q4H PRN PRN Reason: NAUSEA/VOMITING Senna (Senokot Tab*) 1 tab PO BID [facility] Last Admin: 10/27/17 08:39 Dose: Not Given Sertraline HCl (Zoloft*) 25 mg PO BEDTIME [facility] Last Admin: 10/26/17 20:04 Dose: 25 mg Tamsulosin HCl (Flomax Cap*) 0.4 mg PO DAILY [facility] Last Admin: 10/27/17 08:39 Dose: Not Given Vital Signs - 8 hr 10/27/17 10/27/17 03:36 07:49 Temperature 98.1 F 97.4 F Pulse Rate 52 45 Respiratory 18 36 Rate Blood Pressure 148/45 141/61 (mmHg) O2 Sat by Pulse 100 99 Oximetry Oxygen Devices in Use Now: None Appearance: lying flat, NAD Eyes: No Scleral Icterus, PERRLA Ears/Nose/Mouth/Throat: Mucous Membranes Moist Neck: NL Appearance and Movements; NL JVP, Trachea Midline Respiratory: Symmetrical Chest Expansion and Respiratory Effort, Clear to Auscultation Cardiovascular: - - carmen Abdominal: NL Sounds; No Tenderness; No Distention Lymphatic: No Cervical Adenopathy Extremities: No Edema Skin: No Rash or Ulcers Neurological: - - AOx2 to self and location, not year, moves all extremities equally Result Diagrams: 10/26/17 09:47 10/26/17 09:47 Additional Lab and Data: Lab Results 10/26/17 10/26/17 10/26/17 Range/Units 09:46 09:47 09:47 WBC 6.0 (3.5-10.8) 10^3/ul RBC 3.79 L (4.0-5.4) 10^6/ul Hgb 12.3 L (14.0-18.0) g/dl Hct 37 L (42-52) % MCV 97 H (80-94) fL MCH 33 H (27-31) pg MCHC 34 (31-36) g/dl RDW 14 (10.5-15) % Plt Count 212 (150-450) 10^3/ul MPV 8 (7.4-10.4) um3 Neut % (Auto) 67.7 (38-83) % Lymph % (Auto) 24.5 L (25-47) % [place] % (Auto) 6.0 (0-7) % Eos % (Auto) 0.9 (0-6) % Baso % (Auto) 0.9 (0-2) % Absolute Neuts (auto) 4.1 (1.5-7.7) 10^3/ul Absolute Lymphs (auto) 1.5 (1.0-4.8) 10^3/ul Absolute Monos (auto) 0.4 (0-0.8) 10^3/ul Absolute Eos (auto) 0.1 (0-0.6) 10^3/ul Absolute Basos (auto) 0.1 (0-0.2) 10^3/ul Absolute Nucleated RBC 0 10^3/ul Nucleated RBC % 0 INR (Anticoag Therapy) (0.77-1.02) D-Dimer, Quantitative (Less Than 230) ng/mL Sodium 140 (133-145) mmol/L Potassium 3.9 (3.5-5.0) mmol/L Chloride 105 (101-111) mmol/L Carbon Dioxide 25 (22-32) mmol/L Anion Gap 10 (2-11) mmol/L BUN 31 H (6-24) mg/dL Creatinine 1.30 H (0.67-1.17) mg/dL Est GFR ( Amer) 67.3 (>60) Est GFR (Non-Af Amer) 52.3 (>60) BUN/Creatinine Ratio 23.8 H (8-20) Glucose 139 H (70-100) mg/dL Lactic Acid (0.5-2.0) mmol/L Calcium 9.3 (8.6-10.3) mg/dL Magnesium 2.0 (1.9-2.7) mg/dL Total Bilirubin 0.70 (0.2-1.0) mg/dL AST 19 (13-39) U/L ALT 11 (7-52) U/L Alkaline Phosphatase 62 (34-104) U/L Troponin I 0.03 (<0.04) ng/mL B-Natriuretic Peptide ( - 100) pg/mL Total Protein 6.6 (6.4-8.9) g/dL Albumin 3.9 (3.2-5.2) g/dL Globulin 2.7 (2-4) g/dL Albumin/Globulin Ratio 1.4 (1-3) TSH 1.88 (0.34-5.60) mcIU/mL Urine Color Urine Appearance Urine pH (5-9) Ur Specific [place] (1.010-1.030) Urine Protein (Negative) Urine Ketones (Negative) Urine Blood (Negative) Urine Nitrate (Negative) Urine Bilirubin (Negative) Urine Urobilinogen (Negative) Ur Leukocyte Esterase (Negative) Urine WBC (Auto) (Absent) Urine RBC (Auto) (Absent) Urine Bacteria (Absent) Urine Glucose (Negative) Urine Ascorbic Acid (Negative) Influenza A (Rapid) Negative (Negative) Influenza B (Rapid) Negative (Negative) 10/26/17 10/26/17 10/26/17 Range/Units 09:47 09:47 09:47 WBC (3.5-10.8) 10^3/ul RBC (4.0-5.4) 10^6/ul Hgb (14.0-18.0) g/dl Hct (42-52) % MCV (80-94) fL MCH (27-31) pg MCHC (31-36) g/dl RDW (10.5-15) % Plt Count (150-450) 10^3/ul MPV (7.4-10.4) um3 Neut % (Auto) (38-83) % Lymph % (Auto) (25-47) % [place] % (Auto) (0-7) % Eos % (Auto) (0-6) % Baso % (Auto) (0-2) % Absolute Neuts (auto) (1.5-7.7) 10^3/ul Absolute Lymphs (auto) (1.0-4.8) 10^3/ul Absolute Monos (auto) (0-0.8) 10^3/ul Absolute Eos (auto) (0-0.6) 10^3/ul Absolute Basos (auto) (0-0.2) 10^3/ul Absolute Nucleated RBC 10^3/ul Nucleated RBC % INR (Anticoag Therapy) 0.99 (0.77-1.02) D-Dimer, Quantitative 498 H (Less Than 230) ng/mL Sodium (133-145) mmol/L Potassium (3.5-5.0) mmol/L Chloride (101-111) mmol/L Carbon Dioxide (22-32) mmol/L Anion Gap (2-11) mmol/L BUN (6-24) mg/dL Creatinine (0.67-1.17) mg/dL Est GFR ( Amer) (>60) Est GFR (Non-Af Amer) (>60) BUN/Creatinine Ratio (8-20) Glucose (70-100) mg/dL Lactic Acid 2.7 H* (0.5-2.0) mmol/L Calcium (8.6-10.3) mg/dL Magnesium (1.9-2.7) mg/dL Total Bilirubin (0.2-1.0) mg/dL AST (13-39) U/L ALT (7-52) U/L Alkaline Phosphatase (34-104) U/L Troponin I (<0.04) ng/mL B-Natriuretic Peptide 90 ( - 100) pg/mL Total Protein (6.4-8.9) g/dL Albumin (3.2-5.2) g/dL Globulin (2-4) g/dL Albumin/Globulin Ratio (1-3) TSH (0.34-5.60) mcIU/mL Urine Color Urine Appearance Urine pH (5-9) Ur Specific [place] (1.010-1.030) Urine Protein (Negative) Urine Ketones (Negative) Urine Blood (Negative) Urine Nitrate (Negative) Urine Bilirubin (Negative) Urine Urobilinogen (Negative) Ur Leukocyte Esterase (Negative) Urine WBC (Auto) (Absent) Urine RBC (Auto) (Absent) Urine Bacteria (Absent) Urine Glucose (Negative) Urine Ascorbic Acid (Negative) Influenza A (Rapid) (Negative) Influenza B (Rapid) (Negative) 10/26/17 Range/Units 10:10 WBC (3.5-10.8) 10^3/ul RBC (4.0-5.4) 10^6/ul Hgb (14.0-18.0) g/dl Hct (42-52) % MCV (80-94) fL MCH (27-31) pg MCHC (31-36) g/dl RDW (10.5-15) % Plt Count (150-450) 10^3/ul MPV (7.4-10.4) um3 Neut % (Auto) (38-83) % Lymph % (Auto) (25-47) % [place] % (Auto) (0-7) % Eos % (Auto) (0-6) % Baso % (Auto) (0-2) % Absolute Neuts (auto) (1.5-7.7) 10^3/ul Absolute Lymphs (auto) (1.0-4.8) 10^3/ul Absolute Monos (auto) (0-0.8) 10^3/ul Absolute Eos (auto) (0-0.6) 10^3/ul Absolute Basos (auto) (0-0.2) 10^3/ul Absolute Nucleated RBC 10^3/ul Nucleated RBC % INR (Anticoag Therapy) (0.77-1.02) D-Dimer, Quantitative (Less Than 230) ng/mL Sodium (133-145) mmol/L Potassium (3.5-5.0) mmol/L Chloride (101-111) mmol/L Carbon Dioxide (22-32) mmol/L Anion Gap (2-11) mmol/L BUN (6-24) mg/dL Creatinine (0.67-1.17) mg/dL Est GFR ( Amer) (>60) Est GFR (Non-Af Amer) (>60) BUN/Creatinine Ratio (8-20) Glucose (70-100) mg/dL Lactic Acid (0.5-2.0) mmol/L Calcium (8.6-10.3) mg/dL Magnesium (1.9-2.7) mg/dL Total Bilirubin (0.2-1.0) mg/dL AST (13-39) U/L ALT (7-52) U/L Alkaline Phosphatase (34-104) U/L Troponin I (<0.04) ng/mL B-Natriuretic Peptide ( - 100) pg/mL Total Protein (6.4-8.9) g/dL Albumin (3.2-5.2) g/dL Globulin (2-4) g/dL Albumin/Globulin Ratio (1-3) TSH (0.34-5.60) mcIU/mL Urine Color Pinky Urine Appearance Cloudy Urine pH 5.0 (5-9) Ur Specific [place] 1.019 (1.010-1.030) Urine Protein 1+(30 mg/dl) H (Negative) Urine Ketones Negative (Negative) Urine Blood 3+ H (Negative) Urine Nitrate Negative (Negative) Urine Bilirubin Negative (Negative) Urine Urobilinogen Negative (Negative) Ur Leukocyte Esterase Negative (Negative) Urine WBC (Auto) 3+(>20/hpf) H (Absent) Urine RBC (Auto) 3+(>10/hpf) H (Absent) Urine Bacteria Absent (Absent) Urine Glucose Negative (Negative) Urine Ascorbic Acid * H (Negative) Influenza A (Rapid) (Negative) Influenza B (Rapid) (Negative) Assess/Plan/Problems-Billing Assessment: 86 yo M h/o BPH, dementia, CVA p/w syncope found bradycardia - Patient Problems (1) Bradycardia Comment: Identified on 2012 - HR 46 on presenting EKG May represent SSS but unclear if heart rate contributed to syncope stop aricept - can contribute cardiology will consult Discussed with son (Rohit) and he is unsure yet if he would want PPM for father even if recommended (2) Acute urinary retention Comment: Able to urinate prior to mcadams being placed suspect combination of straight cath, BPH and possible UTI treating empirically for UTI until culture returns - pt had urinary symptoms prior to presentation (3) Syncope Comment: Multifactoral including; decreased PO prior to presentation, medications (would like to stop flomax but seems necessary with urinary retention, bradycardia, potential UTI Check TTE treat suspected uti stop aricept tele monitoring (4) Dementia Comment: monitor advanced (5) BPH (benign prostatic hyperplasia) Comment: flomax, finasteride (6) DVT prophylaxis Comment: HSQ
--- NOTE | 2017-10-27 12:59 | ECHO ---
Patient: PAULINA GONZALEZ [facility] Rec#: [id number] : 1930 Date: 10/27/2017 Age: 86y Height: 167.64 cm / 66.0 in Weight: 61.23 kg / 135.0 lbs Sex: M BSA: 1.69 Room#: 435 Admit Date#: 10/26/2017 Type: Inpatient Referring: Xu Angelo MD Reading: Randolph Orozco DO [employer] Certified Powerplant Mechanic: Selma Dan RDCS,RDMS CC: Paulina Herrera MD Transthoracic Echocardiogram Indication: Syncope BP: 130/84 HR: 53 Rhythm: Bradycardia Findings History: HTN, HLD, CVA, ALzheimers Technical Comments: The study quality is good. The study is technically limited due to poor parasternal windows. Left Ventricle: The left ventricular chamber size is normal. Mild concentric left ventricular hypertrophy is observed. Global left ventricular wall motion and contractility are within normal limits. There is normal left ventricular systolic function. The estimated ejection fraction is 60-65%. Abnormal left ventricular diastolic filling is observed, consistent with impaired relaxation. Left Atrium: The left atrium is mild to moderately dilated. Right Ventricle: The right ventricular chamber size and systolic function are within normal limits. Right Atrium: The right atrium is mildly dilated. There is evidence of an atrial septal aneurysm. Aortic Valve: The aortic valve leaflets are mildly thickened. There is evidence of aortic sclerosis without stenosis. There is mild aortic regurgitation. The mean gradient of the aortic valve is 7.6 mmHg. Mitral Valve: There is posterior mitral annular calcification. The mitral valve leaflets are moderately thickened. There is trace to mild mitral regurgitation. There is no evidence of mitral stenosis. Tricuspid Valve: The tricuspid valve leaflets are mildly thickened. There is trace to mild tricuspid regurgitation. There is evidence of borderline pulmonary hypertension. Pulmonic Valve: The pulmonic valve structure is not well visualized. There is no evidence of pulmonic regurgitation. There is no pulmonic stenosis. Pericardium: There is no significant pericardial effusion. Aorta: The ascending aorta is not well visualized. There is no dilatation of the aortic arch. The aortic root is normal in size. Pulmonary Artery: The main pulmonary artery is not well visualized. Venous: The inferior vena cava appears normal in size. There is a greater than 50% respiratory change in the inferior vena cava dimension. Conclusions The left ventricular chamber size is normal. Mild concentric left ventricular hypertrophy is observed. There is normal left ventricular systolic function. The estimated ejection fraction is 60-65%. The left atrium is mild to moderately dilated. The right ventricular chamber size and systolic function are within normal limits. No more than mild valvular disease noted. Compared to prior study from 06/2013, no clinically significant changes noted. Measurements Name Value Normal Range RVIDd (AP) 2D 3.2 cm (0.9 - 2.6) RVDdMajor (2D) 3.8 cm (2.2 - 4.4) RAd ISD 4CH 5.3 cm (3.4 - 4.9) RA (A4C)W 3.7 cm (2.9 - 4.6) IVSd (2D) 1.3 cm (0.6 - 1) LVPWd (2D) 1.5 cm (0.6 - 1) LVIDd (2D) 3.9 cm (3.6 - 5.4) LVIDs (2D) 2.6 cm - LV FS (2D) 33 % (25 - 45) Aortic Annulus 2 cm (1.4 - 2.6) Ao root diameter (2D) 3.3 cm (2.1 - 3.5) Aortic arch 2.5 cm (1.8 - 3.4) LA dimension (AP) 2D 4.8 cm (2.3 - 3.8) LAd ISD 4CH 5 cm (2.9 - 5.3) LA ISD 4CH W 5.3 cm (2.5 - 4.5) Name Value Normal Range LA ESV SP 4CH (A/L) 97.78 ml - LA ESV SP 2CH (A/L) 75.05 ml - LA ESV BP (A/L) 87.45 ml - LA ESV BP (A/L) index 52 ml/m2 - LA ESV SP 4CH (MOD) 88.73 ml - LA ESV SP 2CH (MOD) 66.34 ml - Name Value Normal Range MV E-wave Vmax 0.6 m/sec - MV deceleration time 308 msec - MV A-wave Vmax 0.9 m/sec - MV E:A ratio 0.7 ratio - P. vein S-wave Vmax 0.6 m/sec - P. vein D-wave Vmax 0.4 m/sec - P. vein S:D Vmax ratio 1.7 ratio - P. vein A-wave duration 121 msec - LV septal e' Vmax 0.05 m/sec - LV lateral e' Vmax 0.04 m/sec - LV E:e' septal ratio 12 ratio - LV E:e' lateral ratio 15 ratio - Name Value Normal Range AV Vmax 1.9 m/sec - AV VTI 41 cm - AV peak gradient 14 mmHg - AV mean gradient 7.6 mmHg - LVOT diameter 2 cm - LVOT Vmax 1.1 m/sec - LVOT VTI 24 cm - LVOT peak gradient 5 mmHg - LVOT mean gradient 2.3 mmHg - DOI (VTI) 0.6 ratio - SAMANTHA (continuity Vmax) 1 cm2 - AMBAR Vmax 0.6 m/sec - Name Value Normal Range TR Vmax 2.6 m/sec - TR peak gradient 27 mmHg - RAP 8 mmHg - RVSP 35 mmHg - IVC diameter 2 cm -
--- NOTE | 2017-10-27 16:18 | CONSULT ---
Subjective Date of Service: 10/27/17 Interval History: DATE OF ADMISSION: 10/26/17 Consult date 10/27/2017 PRIMARY CARE PROVIDER: Dr. Herrera. HEALTHCARE PROXY: Rohit, son CHIEF COMPLAINT: Loss of consciousness. Reason for consult: Bradycardia HISTORY OF PRESENT ILLNESS: Reid Nguyen is an 86-year-old man with a history of CVA and dementia. He is oriented only to self. He does know the president but thinks he is currently in this building because he needed a place to live. He has noted to have decreased PO intake, constipation, difficulty urinating and per the transfer records suicidal ideation although this cannot be confirmed as his history is not reliable. History taken from chart medication review and H+P. He had a first dose of ability and flomax yesterday morning. Per HPI by Dr. Angelo the episode is as follows: [woke up today and seemed "not right", sit up and walked a little bit with the aide, got to the door and started shaking, was still talking and moving, continued to walk little bit and then his legs "gave out" and he fell to the ground. He was able to stand with some assistance and was put back in bed at which time his "eyes rolled back in his head." He was noted still be breathing , but he was unresponsive for 3 to 5 minutes. After he woke up, he was not confused and noted that he felt "weak and tired and just needed to wake up." He had several episodes of "dry heaving.] His EKG on admission shows sinus bradycardia at 44 bpm. Of note, an EKG from was nearly identical. His HR here is sinus bradycardia 40-50's while awake at rest and up to 70's with activity and down to 30's with sleep. He has some non-conducted beats of wenkebach physiology on telemetry. There is no evidence of severe sinus or AV node disease. PAST MEDICAL HISTORY: 1. Hypertension. 2. BPH. 3. Hyperlipidemia. 4. CVA in 2012. 5. Bilateral hip replacement. 6. Prostate cancer, status post radiation. 7. Left inguinal hernia. 8. Alzheimer's dementia. ALLERGIES: No known drug allergies listed at [facility]. FAMILY HISTORY: No CAD or CVAs, has a history of prostate cancer. 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 No tobacco, illicits, or alcohol. He lives in [place]. Medications Active Medications: Acetaminophen (Tylenol Tab*) 650 mg PO Q4H PRN PRN Reason: FEVER/PAIN Atorvastatin Calcium (Lipitor*) 10 mg PO QAM [facility] Last Admin: 10/27/17 08:38 Dose: Not Given Cephalexin HCl (Keflex Cap*) 500 mg PO QID [facility] Last Admin: 10/27/17 12:31 Dose: 500 mg Docusate Sodium (Colace Cap*) 100 mg PO BID [facility] Last Admin: 10/27/17 08:38 Dose: Not Given Finasteride (Proscar Tab*) 5 mg PO DAILY [facility] Last Admin: 10/27/17 08:38 Dose: Not Given Heparin Sodium (Porcine) (Heparin Vial(*)) 5,000 units SUBCUT Q8HR [facility] Last Admin: 10/27/17 12:31 Dose: 5,000 units Lisinopril (Prinivil Tab*) 5 mg PO QAM [facility] Last Admin: 10/27/17 08:39 Dose: Not Given Magnesium Hydroxide (Milk Of MagnAudioName Liq*) 30 ml PO Q4H PRN PRN Reason: CONSTIPATION Ondansetron HCl (Zofran Inj*) 4 mg IV Q4H PRN PRN Reason: NAUSEA/VOMITING Senna (Senokot Tab*) 1 tab PO BID [facility] Last Admin: 10/27/17 08:39 Dose: Not Given Sertraline HCl (Zoloft*) 25 mg PO BEDTIME [facility] Last Admin: 10/26/17 20:04 Dose: 25 mg Tamsulosin HCl (Flomax Cap*) 0.4 mg PO DAILY [facility] Last Admin: 10/27/17 08:39 Dose: Not Given Home Medications: Atorvastatin* [Lipitor*] 10 mg PO QAM 10/11/15 [History Confirmed 10/26/17] Donepezil TAB* [Aricept TAB*] 5 mg PO QAM 10/11/15 [History Confirmed 10/26/17] Lisinopril TAB* [Prinivil TAB*] 5 mg PO QAM 10/11/15 [History Confirmed 10/26/17 ] Acetaminophen [Tylenol Extra Strength] 500 mg PO BID 10/19/17 [History Confirmed 10/26/17] Sertraline* [Zoloft*] 25 mg PO BEDTIME 10/19/17 [History Confirmed 10/26/17] ARIPiprazole TAB* [Abilify TAB*] 2 mg PO DAILY 10/26/17 [History Confirmed ] Docusate CAP* [Colace Cap*] 100 mg PO DAILY 10/26/17 [History Confirmed 10/26/17 ] Lactose-Reduced Food [Ensure Liquid] 237 ml PO DAILY 10/26/17 [History Confirmed 10/26/17] Tamsulosin CAP* [Flomax CAP*] 0.4 mg PO DAILY 10/26/17 [History Confirmed ] Review of Systems - Measurements Intake and Output: Intake and Output Last 24 Hours 10/25/17 10/26/17 10/27/17 10/28/17 06:59 06:59 06:59 06:59 Intake Total 1490 770 Output Total 550 1000 Balance 940 -230 Weight 129 lb Intake: IVPB 970 Oral 520 770 Output: Urine 550 850 Liquid Stool 150 Other: Estimated Void Medium Medium Date of Last Bowel 10/27/17 Movement # Bowel Movements 1 1 Estimated Stool Amount Small Small # Voids 1 1 - Review of Systems Review of Systems Statement: As per HPI, otherwise unreliable Objective Vital Signs: Temp Pulse Resp BP Pulse Ox 97.6 F 47 18 139/67 99 10/27/17 15:41 10/27/17 15:41 10/27/17 15:41 10/27/17 15:41 10/27/17 15:41 Oxygen Devices in Use Now: None Appearance: frail, elderly, pleasant Ears/Nose/Mouth/Throat: Clear Oropharnyx, Mucous Membranes Moist Neck: NL Appearance and Movements; NL JVP, Trachea Midline Respiratory: Symmetrical Chest Expansion and Respiratory Effort, Clear to Auscultation Cardiovascular: NL Sounds; No Murmurs; No JVD, No Edema, - - bradycardic, regular Abdominal: NL Sounds; No Tenderness; No Distention Extremities: No Clubbing, Cyanosis Skin: No Rash or Ulcers Neurological: Alert and Oriented x 3 Laboratory Results: 10/26/17 09:47 10/26/17 09:47 INR (Anticoag Therapy) 0.99 (0.77-1.02) 10/26/17 09:47 Total Bilirubin 0.70 mg/dL (0.2-1.0) 10/26/17 09:47 AST 19 U/L (13-39) 10/26/17 09:47 ALT 11 U/L (7-52) 10/26/17 09:47 Alkaline Phosphatase 62 U/L (34-104) 10/26/17 09:47 B-Natriuretic Peptide 90 pg/mL (-100) 10/26/17 09:47 Total Protein 6.6 g/dL (6.4-8.9) 10/26/17 09:47 Albumin 3.9 g/dL (3.2-5.2) 10/26/17 09:47 Globulin 2.7 g/dL (2-4) 10/26/17 09:47 Albumin/Globulin Ratio 1.4 (1-3) 10/26/17 09:47 TSH 1.88 mcIU/mL (0.34-5.60) 10/26/17 09:47 10/26/17 10/26/17 10/26/17 09:47 13:03 16:10 Troponin I 0.03 0.04 H* 0.03 10/26/17 18:52 Troponin I 0.03 Diagnostic Imaging: echo today normal LVEF , no significant valvular abnormalities noted Assessment/Plan LOC likely multifactorial but acute precipitant was very highly likely first dose of flomax. He has chronic bradycardia from chart review but there is no evidence of severe sinus or AV node disease and although this may have contributed unlikely to be primary issue. I talked with his health care proxy Rohit (who also discussed with other sons) and they would not be interested in a pacemaker even if it were indicated so I do not think any further evaluation with extended rhythm monitoring is warranted at this time. Thank you for allowing me to participate in the cardiovascular care of this patient. Please do not hesitate to contact me with questions or concerns.
[2017-10-27] MEDS: Sertraline* 25 MG TAB PO SCH (20:36)
[2017-10-28] MEDS: Heparin VIAL(*) 5000 UNITS/ML VIAL (FIVE THOUSAND) SUBCUT SCH (05:21)
[2017-10-28] MEDS: Docusate CAP* 100 MG PO SCH (08:46)
[2017-10-28] MEDS: Atorvastatin* 10 MG TAB PO SCH (08:47)
[2017-10-28] MEDS: Lisinopril TAB* 5 MG PO SCH (08:47)
[2017-10-28] MEDS: Senna TAB PO SCH (08:47)
[2017-10-28] MEDS: Cephalexin CAP* 500 MG PO SCH (08:47)
[2017-10-28] MEDS: Finasteride TAB* 5 MG PO SCH (08:47)
[2017-10-28] MEDS: Tamsulosin CAP* 0.4 MG PO SCH (08:47)
[2017-10-28 11:39] VITALS: BP 158/72
--- NOTE | 2017-10-29 09:42 | DS ---
CC: Dr. Herrera; Dr. Dolan * DISCHARGE SUMMARY: DATE OF ADMISSION: 10/26/17 DATE OF DISCHARGE: 10/28/17 PRIMARY CARE PROVIDER: Dr. Herrera. PRIMARY DIAGNOSES: 1. Syncope. 2. Bradycardia, Mobitz type I block. SECONDARY DIAGNOSES: Include: 1. Dementia. 2. History of prostate cancer status post radiation. 3. History of cerebrovascular accident. 4. Hyperlipidemia. 5. Benign prostatic hypertrophy. 6. Hypertension. 7. Urinary retention. MEDICATIONS ON DISCHARGE: Include: 1. Keflex 500 mg 4 times a day for 3 additional days. 2. Finasteride 5 mg daily. 3. Abilify 2 mg daily. 4. Lipitor 10 mg daily. 5. Docusate 100 mg daily. 6. Lactulose reduced food. 7. Ensure liquid daily. 8. Lisinopril 5 mg daily. 9. Acetaminophen 500 mg twice daily. 10. Zoloft 25 mg at bedtime. Please note the discontinuation of tamsulosin and the addition of Keflex for additional 3 days. PERTINENT LABORATORY STUDIES: Include: Troponin elevation to 0.04. Urinalysis positive for protein, blood, white blood cells, red blood cells, but absent bacteria. HISTORY OF PRESENT ILLNESS AND HOSPITAL COURSE: This is an 86-year-old gentleman, resident of [place] who has had decreased appetite for several days ; prior to standing, walking several feet before collapsing to the floor. He was put in bed and then had loss of consciousness for several minutes. He was evaluated in [facility], admitted under the hospitalist service. It is noted that he started tamsulosin and Abilify on the day of syncope. In discussion with Dr. Herrera, the patient's PCP, it is noted that previously the patient has a similar episode of loss of consciousness or near loss of consciousness with the addition of tamsulosin. It was thought this to have played a large role in the patient's syncope. During the course of the hospital stay, the patient was noted to have largely sinus bradycardia with episodes of type I Mobitz heart block. The patient was asymptomatic from the bradycardia, was seen in consultation with cardiology who did not recommend a permanent pacemaker at this time and in discussion with the patient's healthcare proxy, Rohit, would not want a pacemaker even if it was indicated. The patient was ambulating around the unit prior to his discharge. He does have underlying behavioral problems in the setting of his previous CVA and dementia exacerbated by being in the hospital. He was largely not aggressive during the hospital stay; on the day of discharge, was interactive, pleasant, and in no distress. Hospital course was notable for intermittent urinary retention. Postvoid residuals ranged anywhere from 300 to 400 cc, but the patient would be able to void during the course of shift down to below 200 cc. He was intermittently catheterized. Refused placement of a permanent Thomas catheter, deemed not necessary on discharge given his ability to void urine to below 200 cc. However , because of his problems with urination as well as inability to tolerate Flomax , a followup with Dr. Dolan was made prior to his discharge. At followup, please: 1. Evaluate for the patient's followup with Dr. Dolan. 2. Evaluate continued tolerance of Abilify, adjust as necessary. 3. Urine culture has not resulted from hospital. Please follow urine culture results to verify appropriate choice for antibiotics - Keflex. TIME SPENT: Greater than 60 minutes was spent on discharge of this patient of which greater than half was spent [id number] with the patient. [id number]/[facility] #: [id number] MTDD
== END 2017-10-28 14:51 | DRG 309 ==
LOC: ED 09:11 → MEDTELE 11:34 → OBSVTOIN 10-27 09:00
PROVIDERS: ADMIT Internal Medicine; ATTEND Internal Medicine
DX: I44.1 Atrioventricular block, second degree (principal); F02.81 Dementia in other diseases classified elsewhere, unspecified severity, with behavioral disturbance; E87.2 Acidosis; G30.9 Alzheimer's disease, unspecified; N39.0 Urinary tract infection, site not specified; E78.5 Hyperlipidemia, unspecified; R00.1 Bradycardia, unspecified; R55 Syncope and collapse; N40.0 Benign prostatic hyperplasia without lower urinary tract symptoms; I12.9 Hypertensive chronic kidney disease with stage 1 through stage 4 chronic kidney disease, or unspecified chronic kidney disease; R33.9 Retention of urine, unspecified; N18.9 Chronic kidney disease, unspecified; K59.00 Constipation, unspecified; Z96.643 Presence of artificial hip joint, bilateral; K40.90 Unilateral inguinal hernia, without obstruction or gangrene, not specified as recurrent; Z86.73 Personal history of transient ischemic attack (TIA), and cerebral infarction without residual deficits; Z85.46 Personal history of malignant neoplasm of prostate; Z79.1 Long term (current) use of non-steroidal anti-inflammatories (NSAID); Z79.899 Other long term (current) drug therapy
CPT/HCPCS: 36415; 70450; 71045; 74019; 80053; 81003; 81015; 83605; 83735; 83880; 84443; 84484; 85025; 85379; 85610; 87502; 87641; 93005; 93306; 99285; A9270-GY; G0378; J1630; J1644

== ENCOUNTER 2017-11-20 18:58 | Emergency (ER) | payer MEDICARE, BC ==
--- NOTE | 2017-11-20 20:51 | RAD ---
HISTORY: Injury. No other history is provided. COMPARISONS: October 26, 2017 TECHNIQUE: Multiple contiguous axial CT scans were obtained of the head without intravenous contrast. FINDINGS: HEMORRHAGE/INFARCT: There is no hemorrhage or acute infarct. MASSES/SHIFT: There is no mass or shift. EXTRA-AXIAL SPACES: There are no extra-axial fluid collections. SULCI AND VENTRICLES: There is diffuse and proportional enlargement of the sulci and ventricles. CEREBRUM: There is hypoattenuation of the periventricular and subcortical white matter. BRAINSTEM: There are no focal parenchymal abnormalities. CEREBELLUM: There are no focal parenchymal abnormalities. VESSELS: There is calcification of the cavernous segments of the internal carotid arteries bilaterally and of the distal vertebral arteries bilaterally. PARANASAL SINUSES: There is opacification of the left maxillary sinus with osteitis of the surrounding bone ORBITS: The orbits are unremarkable. BONES AND SOFT TISSUE: No bone or soft tissue abnormalities are noted. OTHER: None IMPRESSION: NO ACUTE INTRACRANIAL PATHOLOGY. DIFFUSE INVOLUTIONAL CHANGE WITH CHRONIC SMALL VESSEL ISCHEMIC CHANGES.
--- NOTE | 2017-11-20 20:57 | RAD ---
HISTORY: Injury, no other history is provided COMPARISONS: None TECHNIQUE: Multiple contiguous axial CT scans were obtained of the face without intravenous contrast, with coronal and sagittal multiplanar reformations. FINDINGS: BONES: There is no displaced fracture or dislocation. The orbital rim is intact. The zygomatic arch is intact. The pterygoid plates are intact. There is diffuse osteopenia. Degenerative changes are noted of the cervical spine. ORBITS: The globes are round. The optic nerves are symmetric. The extraocular musculature is normal. There is no post septal or intraconal inflammatory change. There is no retrobulbar hematoma. PARANASAL SINUSES: There is opacification of the left transverse sinus which is atelectatic. There is osteitis of the surrounding bone. BRAIN AND SOFT TISSUE: Unremarkable. OTHER: None. IMPRESSION: NO FACIAL FRACTURE. CHRONIC LEFT MAXILLARY SINUSITIS.
[2017-11-20 22:33] VITALS: BP 133/72
--- NOTE | 2017-11-20 22:39 | ED ---
Bk Sanders Rebecca, scribed for Darío Chen MD on 11/20/17 at 2218 . Complex/Multi-Sys Presentation - HPI Summary HPI Summary: Pt is an 86 y/o M BIBA from [place] who presents to ED accompanied by his aid due to concerns of a possible fall. The aid, who spends a significant amount of time with the patient, found that he had bruising and swelling on the right side of his face. Upon being asked, the patient reports he believes he may have his his head earlier this morning. He presents with no other complaints. PMHx dementia. - History Of Current Complaint Chief Complaint: EDFacialInjury Time Seen by Provider: 11/20/17 20:09 Hx Obtained From: Patient, Family/Rigging Up Worker - Aid Onset/Duration: Still Present Severity Currently: None Location: Negative Associated Signs And Symptoms: Positive: Other - Bruising and swelling on the right side of the face Related History: Other - Potential recent fall - Allergies/Home Medications Allergies/Adverse Reactions: Allergies Allergy/AdvReac Type Severity Reaction Status Date / Time tamsulosin [From Flomax] Allergy Unknown Verified 11/20/17 19:16 Reaction Details Home Medications: Home Medications Docusate CAP* [Colace Cap*] 100 mg PO DAILY 11/20/17 [History Confirmed 11/20/17 ] PMH/Surg Hx/FS Hx/Imm Hx Endocrine/Hematology History: Denies: Hx Diabetes Cardiovascular History: Reports: Hx Hypercholesterolemia - HLD, Hx Hypertension Denies: Hx Pacemaker/ICD Respiratory History: Denies: Hx Asthma GI History: Reports: Other GI Disorders - HERNIA REPAIR History: Reports: Hx Benign Prostatic Hyperplasia Denies: Hx Dialysis, Hx Renal Disease Musculoskeletal History: Reports: Other Musculoskeletal History - RIGHT HIP REPAIR Denies: Hx Scoliosis Sensory History: Reports: Hx Cataracts, Hx Contacts or Glasses - READING Denies: Hx Hearing Aid Opthamlomology History: Reports: Hx Cataracts, Hx Contacts or Glasses - READING Neurological History: Reports: Hx Dementia, Other Neuro Impairments/Disorders - ALZHEIMERS DISEASE Psychiatric History: Denies: Hx Panic Disorder - Surgical History Surgery Procedure, Year, and Place: HIP REPLACEMENT, PROSTATE BIOPSIES, HERNIA REPAIR Hx Anesthesia Reactions: No Infectious Disease History: No Infectious Disease History: Denies: Traveled Outside the [place] in Last 30 Days - Family History Known Family History: Negative: Cardiac Disease, Hypertension, Diabetes - Social History Alcohol Use: None Hx Substance Use: No Substance Use Type: Reports: None Hx Tobacco Use: No Smoking Status (MU): Never Smoked Tobacco Review of Systems Positive: Other - Potential recent fall Positive: Other - NEGATIVE: any pain Positive: Bruising, Other - Swelling on the R side of the face All Other Systems Reviewed And Are Negative: Yes Physical Exam - Summary Physical Exam Summary: VITAL SIGNS: Reviewed. GENERAL: ~Patient is a well-developed and nourished elderly male who is lying comfortable in the stretcher. Patient is not in any acute respiratory distress. HEAD AND FACE: No hematomas or skull depressions. No sinus tenderness. Ecchymosis over the right maxillary area with tenderness. EYES: PERRLA, EOMI x 2, No injected conjunctiva, no nystagmus. EARS: Hearing grossly intact. Ear canals and tympanic membranes are within normal limits. MOUTH: Oropharynx within normal limits. NECK: Supple, trachea is midline, no adenopathy, no JVD, no carotid bruit, no c- spine tenderness, neck with full ROM. CHEST: Symmetric, no tenderness at palpation LUNGS: Clear to auscultation bilaterally. No wheezing or crackles. CVS: Regular rate and rhythm, S1 and S2 present, no murmurs or gallops appreciated. ABDOMEN: Soft, non-tender. No signs of distention. No rebound no guarding, and no masses palpated. Bowel sounds are normal. EXTREMITIES: FROM in all major joints, no edema, no cyanosis or clubbing. NEURO: Alert and oriented x 2. No acute neurological deficits. Speech is normal and follows commands. SKIN: Dry and warm. Triage Information Reviewed: Yes Vital Signs On Initial Exam: Initial Vitals Temp Pulse Resp BP Pulse Ox 99.7 F 55 16 98/52 98 11/20/17 19:07 11/20/17 19:07 11/20/17 19:07 11/20/17 19:07 11/20/17 19:07 Vital Signs Reviewed: Yes - Lawson Coma Scale Glascow Coma Scale Comments: 15 Diagnostics - Vital Signs Vital Signs Temp Pulse Resp BP Pulse Ox 11/20/17 21:00 50 18 99 11/20/17 20:00 55 20 105/55 97 11/20/17 19:30 57 23 95/56 97 11/20/17 19:12 64 98 11/20/17 19:11 98/52 11/20/17 19:07 99.7 F 55 16 98/52 98 - Laboratory Lab Statement: Any lab studies that have been ordered have been reviewed, and results considered in the medical decision making process. - CT Brain CT CT Interpretation: No Acute Changes - NO ACUTE INTRACRANIAL PATHOLOGY. DIFFUSE INVOLUTIONAL CHANGE WITH CHRONIC SMALL VESSEL ISCHEMIC CHANGES. ED physician reviewed this radiology report. CT Interpretation Completed By: Radiologist Maxillofacial CT CT Interpretation: No Acute Changes - NO FACIAL FRACTURE. CHRONIC LEFT MAXILLARY SINUSITIS. ED physician reviewed this radiology report. CT Interpretation Completed By: Radiologist - EKG 1913 Cardiac Rate: Bradycardia - 58 bpm EKG Rhythm: Sinus Bradycardia EKG Interpretation: Nonspecific T wave changes Complex Multi-Symp Course/Dx Assessment/Plan: Pt is an 86 y/o M BIBA from [place] who presents to ED accompanied by his aid due to concerns of a possible fall. The aid, who spends a significant amount of time with the patient, found that he had bruising and swelling on the right side of his face. Upon being asked, the patient reports he believes he may have his his head earlier this morning. He presents with no other complaints. PMHx dementia. Brain CT and maxillofacial CT reveal no acute findings. EKG is sinus with nonspecific T wave changes. Pt will be D/C to home with Dx of facial contusion. He and his aid understand and agree. Allergy noted. - Diagnoses Provider Diagnoses: Facial contusion Discharge - Sign-Out/Discharge Documenting (check all that apply): Discharge - Discharge Plan Condition: Stable Disposition: HOME Patient Education Materials: Facial Contusion (ED) Referrals: Reid Herrera MD [Primary Care Provider] - 3 Days Additional Instructions: RETURN TO EMERGENCY DEPARTMENT FOR ANY NEW OR WORSENING SYMPTOMS The documentation as recorded by the Bk muñoz Rebecca accurately reflects the service I personally performed and the decisions made by , Darío Chen MD.
== END 2017-11-20 22:58 | disposition home or self-care (01) ==
LOC: ED 18:58
DX: S00.83XA Contusion of other part of head, initial encounter (principal); X58.XXXA Exposure to other specified factors, initial encounter; Y93.9 Activity, unspecified; Y92.9 Unspecified place or not applicable; E78.00 Pure hypercholesterolemia, unspecified; I10 Essential (primary) hypertension; N40.0 Benign prostatic hyperplasia without lower urinary tract symptoms; Z96.649 Presence of unspecified artificial hip joint; Z88.8 Allergy status to other drugs, medicaments and biological substances
CPT/HCPCS: 70450; 70486; 93005; 99284

== ENCOUNTER 2018-08-08 16:39 | Emergency (ER) | payer MEDICARE, BC ==
[2018-08-08 17:15] VITALS: BP 125/71
--- NOTE | 2018-08-08 18:18 | UC ---
Complaint Male HPI - HPI Summary HPI Summary: 87 yo male brought in for evaluation of increased frequency of urination He voided before triage and we were unable to obtain specimen here He has dementia and anxious to leave His facility states they can obtain specimen he denies abd pain or fever no change in mental status reported - History of Current Complaint Chief Complaint: UCGU Stated Complaint: URINARY COMPLAINT Time Seen by Provider: 08/08/18 17:16 Hx Obtained From: Patient Onset/Duration: Lasting Hours Severity Initially: Mild Severity Currently: Mild Pain Intensity: 0 Pain Scale Used: 0-10 Numeric Location: None Associated Signs And Symptoms: Negative: Diaphoresis, Back Pain, Fever, Hematuria, Dysuria, Constipation, Blood in Stool, Rectal Pain, Appetite, Nausea , Vomiting(# Of Episodes =), Penile Swelling, Penile Discharge - Allergies/Home Medications Allergies/Adverse Reactions: Allergies Allergy/AdvReac Type Severity Reaction Status Date / Time tamsulosin [From Flomax] Allergy Unknown Verified 08/08/18 17:16 Reaction Details PMH/Surg Hx/FS Hx/Imm Hx Previously Healthy: Yes Endocrine History: Dyslipidemia Cardiovascular History: Hypertension Neurological History: Dementia - Surgical History Surgical History: Yes Surgery Procedure, Year, and Place: HIP REPLACEMENT, PROSTATE BIOPSIES, HERNIA REPAIR - Family History Known Family History: Negative: Cardiac Disease, Hypertension, Diabetes - Social History Alcohol Use: None Substance Use Type: None Smoking Status (MU): Never Smoked Tobacco - Immunization History Most Recent Influenza Vaccination: 2012 Most Recent Tetanus Shot: UTD Most Recent Pneumonia Vaccination: UNSURE & REFUSES AT THIS TIME. Review of Systems All Other Systems Reviewed And Are Negative: Yes Constitutional: Positive: Negative Skin: Positive: Negative Eyes: Positive: Negative ENT: Positive: Negative Respiratory: Positive: Negative Cardiovascular: Positive: Negative Gastrointestinal: Positive: Negative Genitourinary: Positive: Frequency, Urgency Motor: Positive: Negative Neurovascular: Positive: Negative Musculoskeletal: Positive: Negative Neurological: Positive: Negative Psychological: Positive: Negative Physical Exam Triage Information Reviewed: Yes Appearance: Well-Appearing, No Pain Distress, Well-Nourished Vital Signs: Initial Vital Signs Temp 98.6 F 08/08/18 17:11 Pulse 61 08/08/18 17:11 Resp 18 08/08/18 17:11 BP 125/71 08/08/18 17:11 Pulse Ox 100 08/08/18 17:11 Vital Signs Reviewed: Yes Eyes: Positive: Conjunctiva Clear ENT: Negative: Hearing grossly normal, Nasal congestion, Nasal drainage, Trismus , Muffled voice, Hoarse voice Neck: Positive: Supple, Nontender, No Lymphadenopathy Respiratory: Positive: Lungs clear, Normal breath sounds, No respiratory distress Cardiovascular: Positive: RRR, No Murmur Neurological: Positive: Alert - but not oriented Skin Exam: Other - grant ker's Complaint Male Course/Dx - Differential Dx/Diagnosis Provider Diagnosis: H/O urinary frequency Discharge - Sign-Out/Discharge Documenting (check all that apply): Patient Departure All imaging exams completed and their final reports reviewed: No Studies - Discharge Plan Condition: Stable Disposition: HOME Patient Education Materials: Urinary Urgency and Frequency (DC) Referrals: Reid Herrera MD [Primary Care Provider] - 3 Days (if not better) Additional Instructions: please obtain urine specimen for evaluation of your symptoms recheck for new or worsening symptoms - Billing Disposition and Condition Condition: STABLE Disposition: Home
== END 2018-08-08 18:30 | disposition home or self-care (01) ==
LOC: UCEAST 16:39
DX: R35.0 Frequency of micturition (principal); F03.90 Unspecified dementia, unspecified severity, without behavioral disturbance, psychotic disturbance, mood disturbance, and anxiety; F41.9 Anxiety disorder, unspecified; Z88.8 Allergy status to other drugs, medicaments and biological substances
CPT/HCPCS: 99212; G0463

== ENCOUNTER 2018-08-31 05:20 | Inpatient (IN) | payer MEDICARE, BC ==
[2018-08-31] MEDS ORDERED: Bupivacaine 0.5% W/EPI SDV* 30 ML VIAL ONE (05:32)
[2018-08-31] MEDS ORDERED: Lidocaine 2% EPI 1:200000 MPF*10-20 ML VIAL ONE (05:32)
[2018-08-31 06:03] LABS: ABS Basophils 0 10^3/ul (0-0.2); ABS Eosinophils 0.1 10^3/ul (0-0.6); ABS Lymphocytes 1.9 10^3/ul (1.0-4.8); ABS Monocytes 0.6 10^3/ul (0-0.8); ABS Neutrophils 4.3 10^3/ul (1.5-7.7); ABS Nucleated RBC 0 10^3/ul; Eosinophil % 1.7 %; Hematocrit 32 % (42-52); Hemoglobin 10.3 g/dl (14.0-18.0); Lymphocyte % 26.8 %; Mean Corpuscular HGB Conc 33 g/dl (31-36); Mean Corpuscular Hemoglobin 31 pg (27-31); Mean Corpuscular Volume 94 fL (80-94); Mean Platelet Volume 7.8 fL (7.4-10.4); Nucleated Red Blood Cells % 0; Platelet Count 257 10^3/ul (150-450); Red Blood Count 3.36 10^6/ul (4.00-5.40); Red Cell Distribution Width 16 % (10.5-15); White Blood Count 6.9 10^3/ul (3.5-10.8)
[2018-08-31 06:12] LABS: Activated Partial Thrombo Time 27.2 seconds (26.0-36.3); INR 0.98 (0.77-1.02)
--- NOTE | 2018-08-31 06:18 | ED ---
Lower Extremity - HPI Summary HPI Summary: This patient is a 87 year old M brought in by ambulance to [facility] status post fall from assisted living prior to arrival. Patient reports left hip pain, but has no other complaints. He is unsure how he fell. He typically ambulates with a walker at baseline. PMHx of dementia. Level 5 caveat due to dementia. - History of Current Complaint Chief Complaint: EDExtremityLower Stated Complaint: LEFT LEG PAIN Time Seen by Provider: 08/31/18 05:25 Hx Obtained From: Patient Pain Intensity: 10 - Allergies/Home Medications Allergies/Adverse Reactions: Allergies Allergy/AdvReac Type Severity Reaction Status Date / Time tamsulosin [From Flomax] Allergy Unknown Verified 08/08/18 17:16 Reaction Details Home Medications: Home Medications Melatonin 5 mg PO DAILY 08/31/18 [History Confirmed 08/31/18] PMH/Surg Hx/FS Hx/Imm Hx Endocrine/Hematology History: Denies: Hx Diabetes, Hx Thyroid Disease Cardiovascular History: Reports: Hx Hypercholesterolemia - HLD, Hx Hypertension Denies: Hx Pacemaker/ICD Respiratory History: Denies: Hx Asthma, Hx Chronic Obstructive Pulmonary Disease (COPD) GI History: Reports: Other GI Disorders - HERNIA REPAIR Denies: Hx Ulcer History: Reports: Hx Benign Prostatic Hyperplasia Denies: Hx Dialysis, Hx Renal Disease Musculoskeletal History: Reports: Other Musculoskeletal History - RIGHT HIP REPAIR Denies: Hx Scoliosis Sensory History: Reports: Hx Cataracts, Hx Contacts or Glasses - READING Denies: Hx Hearing Aid Opthamlomology History: Reports: Hx Cataracts, Hx Contacts or Glasses - READING Neurological History: Reports: Hx Dementia, Other Neuro Impairments/Disorders - ALZHEIMERS DISEASE Psychiatric History: Denies: Hx Panic Disorder - Surgical History Surgery Procedure, Year, and Place: HIP REPLACEMENT, PROSTATE BIOPSIES, HERNIA REPAIR Hx Anesthesia Reactions: No Infectious Disease History: No Infectious Disease History: Denies: Hx Hepatitis, Hx Human Immunodeficiency Virus (HIV), Traveled Outside the [place] in Last 30 Days - Family History Known Family History: Negative: Cardiac Disease, Hypertension, Diabetes - Social History Alcohol Use: None Hx Substance Use: No Substance Use Type: Reports: None Hx Tobacco Use: No Smoking Status (MU): Never Smoked Tobacco Review of Systems Negative: Fever Positive: Myalgia - left hip All Other Systems Reviewed And Are Negative: Yes Physical Exam - Summary Physical Exam Summary: Appearance: elderly man lying in stretcher in no apparent distress Skin: Warm, dry, no obvious rash Eyes: sclera anicteric, no conjunctival pallor ENT: mucous membranes moist, pharynx appears normal Neck: Supple, nontender Respiratory: Clear to auscultation, no signs of respiratory distress Cardiovascular: Bradycardic, Normal S1, S2. No murmurs. Normal distal pulses in tibial and radial bilaterally. Abdomen: Soft, nontender, normal active bowel sounds present Musculoskeletal: Left leg externally rotated and slightly shortened with good pulses Neurological: A&Ox3, awake and alert, mentation is normal, speech is fluent and appropriate Psychiatric: affect is normal, does not appear anxious or depressed Triage Information Reviewed: Yes Vital Signs On Initial Exam: Initial Vitals Pulse BP Pulse Ox 45 152/76 96 08/31/18 05:24 08/31/18 05:24 08/31/18 05:24 Vital Signs Reviewed: Yes Diagnostics - Vital Signs Vital Signs Temp Pulse Resp BP Pulse Ox 08/31/18 05:34 51 98 08/31/18 05:26 97.8 F 45 16 152/76 97 08/31/18 05:24 45 152/76 96 - Laboratory Lab Results: Lab Results 08/31/18 08/31/18 08/31/18 Range/Units 05:55 05:55 05:55 WBC 6.9 (3.5-10.8) 10^3/ul RBC 3.36 L (4.00-5.40) 10^6/ul Hgb 10.3 L (14.0-18.0) g/dl Hct 32 L (42-52) % MCV 94 (80-94) fL MCH 31 (27-31) pg MCHC 33 (31-36) g/dl RDW 16 H (10.5-15) % Plt Count 257 (150-450) 10^3/ul MPV 7.8 (7.4-10.4) fL Neut % (Auto) 62.2 % Lymph % (Auto) 26.8 % [place] % (Auto) 8.7 % Eos % (Auto) 1.7 % Baso % (Auto) 0.6 % Absolute Neuts (auto) 4.3 (1.5-7.7) 10^3/ul Absolute Lymphs (auto) 1.9 (1.0-4.8) 10^3/ul Absolute Monos (auto) 0.6 (0-0.8) 10^3/ul Absolute Eos (auto) 0.1 (0-0.6) 10^3/ul Absolute Basos (auto) 0 (0-0.2) 10^3/ul Absolute Nucleated RBC 0 10^3/ul Nucleated RBC % 0 INR (Anticoag Therapy) 0.98 (0.77-1.02) APTT 27.2 (26.0-36.3) seconds Blood Type A Positive Antibody Screen Pending Result Diagrams: 09/03/18 05:19 09/03/18 05:19 Lab Statement: Any lab studies that have been ordered have been reviewed, and results considered in the medical decision making process. - Radiology Hip/Pelvis XR Radiology Interpretation Completed By: ED Physician Summary of Radiographic Findings: Shannon-prosthetic fracture of the left proximal femur - EKG 0554 Cardiac Rate: Bradycardia - 56 BPM EKG Rhythm: Sinus Rhythm Summary of EKG Findings: non STEMI, ventricular premature complex Lower Extremity Course/Dx - Course Course Of Treatment: 87 year old M brought in by ambulance to [facility] status post fall from assisted living prior to arrival. Patient reports left hip pain, but has no other complaints. He is unsure how he fell. He typically ambulates with a walker at baseline. Left leg is external rotated and shortened upon exam. Pelvis/Hip XR reveals Shannon-prosthetic fracture of the left proximal femur. Bloodwork is unremarkable. Patient is given Lidocaine with 2% Epinephrine and Bupivacaine with 0.5% Epinephrine under US guidance for iliofascial block. fede Barros, agrees to see patient in hospital; recommends admission by hospitalist. - Diagnoses Provider Diagnoses: Periprosthetic fracture around internal prosthetic hip joint - Physician Notifications Discussed Care Of Patient With: Jabari Rice - fede Time Discussed With Above Provider: 06:30 Instructed by Provider To: Other - recommends admission by hospitalist Discharge - Sign-Out/Discharge Documenting (check all that apply): Patient Departure - admitted - Discharge Plan Condition: Good Disposition: ADMITTED TO [facility] - Billing Disposition and Condition Condition: GOOD Disposition: Admitted to [facility] - Attestation Statements Document Initiated by Scribe: Yes Documenting Scribe: Nimco Tovar Provider For Whom Scribe is Documenting (Include Credential): Chivo Schofield MD Scribe Attestation: I, Nimco Tovar, scribed for Chivo Schofield MD on 09/03/18 at 1815. Scribe Documentation Reviewed: Yes Provider Attestation: The documentation as recorded by the scribe, Nimco Tovar accurately reflects the service I personally performed and the decisions made by me, Chivo Schofield MD Status of Scribe Document: Viewed
[2018-08-31 06:21] LABS: Albumin 3.5 g/dL (3.2-5.2); Albumin/Globulin Ratio 1.3 (1-3); BUN/Creatinine Ratio 27.9 (8-20); Calcium 8.6 mg/dL (8.6-10.3); EGFR Non-African American 52.7 (>60); Globulin 2.6 g/dL (2-4); Potassium 4.4 mmol/L (3.5-5.0); Total Bilirubin 0.5 mg/dL (0.2-1.0); Total Protein 6.1 g/dL (6.4-8.9)
[2018-08-31] MEDS ORDERED: PROCHLORPERAZINE INJ 5 MG/ML 2 ML VIAL IV PRN (07:57)
[2018-08-31] MEDS ORDERED: NS 0.9% 1000 ML* 1,000 ML IV SCH (08:00)
[2018-08-31 08:34] LABS: Urine Appearance Clear; Urine Bilirubin Negative (Negative); Urine Blood Negative (Negative); Urine Color Yellow; Urine Glucose Negative (Negative); Urine Ketones Negative (Negative); Urine Nitrite Negative (Negative); Urine Protein Negative (Negative); Urine Specific Gravity 1.016 (1.010-1.030); Urine Urobilinogen Negative (Negative)
[2018-08-31] MEDS: Morphine VIAL* 4 MG/ML VIAL (1 ml vial) IV PRN ×4 (09:04→20:05)
[2018-08-31] MEDS: NS 0.9% 1000 ML* 1,000 ML IV SCH (10:22)
[2018-08-31] MEDS: Lisinopril TAB* 5 MG PO SCH (11:19)
[2018-08-31] MEDS: Docusate CAP* 100 MG PO SCH (11:19)
[2018-08-31] MEDS: Finasteride TAB* 5 MG PO SCH (11:19)
[2018-08-31] MEDS: Atorvastatin* 10 MG TAB PO SCH (11:19)
[2018-08-31] MEDS: ARIPiprazole TAB* 2 MG PO SCH (11:20)
--- NOTE | 2018-08-31 12:33 | CONSULT ---
<LisaShahabJamaal - Last Filed: 08/31/18 12:38> Consult Consult: Consult HPI: The pt is an 87 y/o male who presented to the ER after sustaining a fall at his nursing facility. The pt has severe dementia and is unable to answer questions. Son is in room and can answer some questions. The fall was unwitnessed. The pt does have pain in the left hip. The son states that the pt was most likely walking without his walker at the point of fall. The son states that the pt does not ambulate much at the nursing facility and is usually lying in the bed. He states that the pt does not talk respond much due to a stroke about 3 years ago that has led to dementia. PMHx: 1. Dementia 2. History of Stroke 3. HTN Active Medications Generic Name Dose Route Start Last Admin Trade Name Freq PRN Reason Stop Dose Admin Acetaminophen 650 mg 08/31/18 07:57 Tylenol Tab* PO Q6H PRN pain/fever Aripiprazole 2 mg 08/31/18 09:00 08/31/18 11:20 Abilify Tab* PO 2 mg DAILY ABE Administration Atorvastatin Calcium 10 mg 08/31/18 09:00 08/31/18 11:19 Lipitor* PO 10 mg QAM ABE Administration Docusate Sodium 100 mg 08/31/18 09:00 08/31/18 11:19 Colace Cap* PO 100 mg DAILY ABE Administration Finasteride 5 mg 08/31/18 09:00 08/31/18 11:19 Proscar Tab* PO 5 mg DAILY ABE Administration Heparin Sodium (Porcine) 5,000 units 08/31/18 14:00 Heparin Vial(*) SUBCUT Q8HR ABE Sodium Chloride 1,000 mls @ 75 mls/hr 08/31/18 08:15 08/31/18 10:22 Ns 0.9% 1000 Ml* IV 75 mls/hr .per rate ABE Administration Lisinopril 5 mg 08/31/18 09:00 08/31/18 11:19 Prinivil Tab* PO 5 mg QAM ABE Administration Melatonin 6 mg 08/31/18 21:00 Melatonin PO BEDTIME ABE Morphine Sulfate 1 mg 08/31/18 07:57 08/31/18 11:21 Morphine Vial* IV 1 mg Q1H PRN Administration SEVERE PAIN Prochlorperazine Edisylate 5 mg 08/31/18 07:57 Compazine Inj* IV Q6H PRN NAUSEA/VOMITING Sertraline HCl 25 mg 08/31/18 21:00 Zoloft* PO BEDTIME BAE Allergies tamsulosin [From Flomax] Allergy (Verified 08/08/18 17:16) Unknown Reaction Details PSHx 1. Right total hip arthroplasty 2. Left total hip arthroplasty 3. Prostate Biopsy 4. Hernia Repair Family Hx: Negative from son Social Hx: Pt lives at a nursing facility. Does not ambulate much but utilizes a walker when ambulating. Pt does not smoke, drink, or utilize any illicit drugs. ROS: Negative: Fever, chills, night sweats Negative: Nausea, vomiting. Positive: left hip pain All Other Systems Reviewed And Are Negative: Yes Physical Exam Appearance: elderly man lying in stretcher in no apparent distress HEENT: normocephalic, atraumatic, hearing and vision are grossly intact Respiratory: Clear to auscultation, no signs of respiratory distress Cardiovascular: Bradycardic, Normal S1, S2. No murmurs. Normal distal pulses in tibial and radial bilaterally. Musculoskeletal: Left leg externally rotated and slightly shortened with good pulses. Pt has some pain with palpation of the left hip. He does df/pf during exam. Imaging: Xrays of the left hip were obtained and reviewed. Shannon-prosthetic fracture of the left proximal femur is evident. Assessment: Shannon-prosthetic fracture of the left femur with loosening of hardware Plan: 1. Dr. Rice discussed with the son that given he does move around in bed and is in pain that surgical intervention would be indicated for pain relief. 2. To the OR tomorrow afternoon for a left hip revision of stem with reduction of fracture, platting and cerclage wires. 3. NPO after midnight tonight 4. Can continue on current pain medication 5. Spoke with Dr. Cabral who stated that the pt is medically optimized for surgery tomorrow. <Jabari Rice - Last Filed: 08/31/18 20:33> Consult Consult: 87 yo M with dementia who lives at the [facility] in [place] who ambulates minimally with a walker with a history of 2009 left LINDA (by Dr. Ibarra), who had an unwitnessed fall today and was BIBA to [facility] and diagnosed with a periprosthetic proximal femur fracture. No other acute injuries. Operative note from 2008 includes implant specifications. Patient's son and HCP was present at bedside this morning. X-rays show a [place] B2 fracture with a loose uncemented femoral stem and a located hip joint. A/P: - I agree with above note of Jamaal Gonzalez'kel. - NPO after midnight - Medical clearance by Hospitalist - Hold anticoagulation after midnight - Dr. Mota spoke with Binu about the ZMR revision system. It will arrive at [facility] tomorrow morning, 09/01/18. We will place a revision femoral stem and a greater trochanteric claw plate. - To the OR 09/01/18 for ORIF periprosthetic left proximal femur fracture and revision of femoral stem of total hip arthroplasty - I spoke with the patient's son about the plan
--- NOTE | 2018-08-31 13:13 | HP ---
CC: Dr. Herrera; Dr. Rice HISTORY AND PHYSICAL: DATE OF ADMISSION: 08/31/18 TIME OF EVALUATION: 7:35 a.m. PRIMARY CARE PROVIDER: Dr. Herrera. CONSULTING ORTHOPEDIST: Dr. Rice. CHIEF COMPLAINT: "I fell." HISTORY OF PRESENT ILLNESS: Mr. Nguyen is an 87-year-old male with a past medical history of dementia, hypertension, BPH, hyperlipidemia, status post CVA in 2012, prostate CA, status post radiation, status post bilateral hip replacement, who was brought into the emergency room after sustaining a fall. The patient has a history of dementia and is a little confused now that he is in the hospital, but he is able to tell me that he was ambulating, trying to turn around, lost his balance and fell. As per EMS report, the patient was found to have a shortened and externally rotated left lower extremity. A hip and pelvis x- ray showed a left periprosthetic fracture, and emergency room provider contacted the orthopedist professional bondsman, Dr. Rice, who recommended admission by the hospitalist service for further evaluation and management. The patient states that his pain is controlled at this time, but he did receive lidocaine and bupivacaine for a block in the emergency room. He denies chest pain, palpitations, or shortness of breath. PAST MEDICAL HISTORY: 1. Alzheimer's dementia. 2. Hypertension. 3. BPH. 4. Hyperlipidemia. 5. Status post CVA in 2012. 6. Status post bilateral hip replacement. 7. Prostate CA, status post radiation. 8. Status post left inguinal hernia repair. 9. CKD stage 3. MEDICATION LIST: 1. Acetaminophen 500 mg p.o. b.i.d. 2. Aripiprazole 2 mg p.o. daily. 3. Atorvastatin 10 mg p.o. daily. 4. Colace 100 mg p.o. daily. 5. Finasteride 5 mg p.o. daily. 6. Lisinopril 5 mg p.o. daily. 7. Melatonin 5 mg p.o. daily. 8. Sertraline 25 mg p.o. at bedtime. ALLERGIES: TAMSULOSIN, the patient had an unknown reaction. FAMILY HISTORY: As per records, family history of prostate cancer. 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 There is no history of tobacco, alcohol, or drug use. As per records, he lives at [place]. REVIEW OF SYSTEMS: Limited due to the patient's mild confusion, but all the pertinent negatives and positive findings are in the HPI. PHYSICAL EXAMINATION GENERAL: The patient is an elderly gentleman, lying in the ED stretcher, in no acute distress. VITAL SIGNS: Temperature 97.8, heart rate is 66, respiratory rate is 16, oxygen saturation is 97% on room air, blood pressure is 153/70. HEENT: Pupils are equal. Moist mucous membranes. CVS: Normal S1, S2. Regular rate and rhythm. CHEST: Breath sounds bilaterally, with no added sounds. ABDOMEN: Soft, nontender, nondistended. Bowel sounds are present. EXTREMITIES: The left lower extremity is externally rotated. Sensation is intact. He has good capillary refill. NEUROLOGIC: He is alert, awake, and oriented to self and place but needs frequent redirection. LABORATORY AND IMAGING DATA: The patient had a CBC that showed WBC of 6.9, hemoglobin is 10.3, hematocrit 32, platelets 257, with 62% neutrophils. INR is 0.98. Chemistry showed a sodium of 137, potassium of 4.4, chloride of 106, bicarb of 25, BUN of 36, creatinine of 1.29, glucose of 102, lactic acid of 0.9 , calcium of 8.6. LFTs are normal. Chest x-ray not officially read yet, shows no acute pulmonary disease to my read. Hip and pelvis x-ray not yet officially read. Periprosthetic fracture on the left. EKG done on 08/31/18 at 5:54 a.m. shows sinus rhythm at 56 beats per minute with PVC. No significant change when compared to his prior EKG from October 2017. In October 2017, the patient had a transthoracic echocardiogram that showed an ejection fraction of 60% to 65% with left atrium mild to moderately dilated and no more than mild valvular disease noted. ASSESSMENT AND PLAN: Mr. Nguyen is an 87-year-old male with a past medical history of Alzheimer's dementia, hypertension, benign prostatic hyperplasia, hyperlipidemia, cerebrovascular accident, status post bilateral hip replacement , prostate cancer, status post radiation, status post left inguinal hernia repair, who presented to the emergency room after a fall, found to have a left periprosthetic hip fracture. 1. Left periprosthetic hip fracture. The patient is a poor historian with his dementia, but he thinks he was turning around, lost his balance and fell. He denies chest pain, palpitations, or loss of consciousness. So, I believe this was a mechanical fall. 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 At that time, he was seen in consultation by Cardiology who did not recommend a permanent pacemaker and the family at that point would not want one even if it was indicated. 2. The patient would be admitted to the surgical floor, and he will be seen in consultation by Dr. Rice. The patient has no complaints of chest pain. His EKG shows no ischemic changes, and he had an echocardiogram earlier this year with normal ejection fraction and no significant valvular disease. The patient has RCRI of 1 predicting a 1% to 1.3% risk of cardiac complications. I believe the patient is medically optimized for a surgical repair of his hip fracture without further cardiac workup. The patient will be placed on bedrest for now, and he will receive pain management. 3. Chronic kidney disease, stage 3. His renal function is at baseline. 4. Alzheimer's dementia. We will continue his Abilify and sertraline. 5. Benign prostatic hyperplasia/history of prostate cancer. We will continue his finasteride and we will place Thomas catheter for now. 6. Hypertension. It is controlled. We will continue lisinopril. 7. DVT prophylaxis: The patient has a score of 4 on the DVT Prophylaxis Risk Assessment Guide and would be started on subcutaneous heparin. 8. Code status: The patient has a MOLST form in our system indicating that he wishes to be a do not resuscitate and this form will be added to his chart. TIME SPENT: Approximately 45 minutes was spent with the patient on interview, medical records review, and physical examination to complete this admission. More than half of this time was spent [id number] with the patient and coordination of care. [id number]/[facility] #: [id number] RUFINA
[2018-08-31] MEDS: Heparin VIAL(*) 5000 UNITS/ML VIAL (FIVE THOUSAND) SUBCUT SCH ×2 (13:55→22:55)
[2018-08-31] MEDS: Melatonin 3 MG TAB PO SCH (20:05)
[2018-08-31] MEDS: Sertraline* 25 MG TAB PO SCH (20:05)
[2018-09-01] MEDS: NS 0.9% 1000 ML* 1,000 ML IV SCH ×3 (01:02→23:20)
[2018-09-01] MEDS: Morphine VIAL* 4 MG/ML VIAL (1 ml vial) IV PRN ×6 (03:28→21:05)
[2018-09-01 05:18] LABS: ABS Basophils 0 10^3/ul (0-0.2); ABS Eosinophils 0 10^3/ul (0-0.6); ABS Lymphocytes 0.9 10^3/ul (1.0-4.8); ABS Monocytes 0.6 10^3/ul (0-0.8); ABS Neutrophils 5.6 10^3/ul (1.5-7.7); ABS Nucleated RBC 0 10^3/ul; Eosinophil % 0 %; Hematocrit 30 % (42-52); Hemoglobin 9.9 g/dl (14.0-18.0); Lymphocyte % 12.2 %; Mean Corpuscular HGB Conc 33 g/dl (31-36); Mean Corpuscular Hemoglobin 31 pg (27-31); Mean Corpuscular Volume 95 fL (80-94); Mean Platelet Volume 8.2 fL (7.4-10.4); Nucleated Red Blood Cells % 0.1; Platelet Count 254 10^3/ul (150-450); Red Blood Count 3.18 10^6/ul (4.00-5.40); Red Cell Distribution Width 16 % (10.5-15); White Blood Count 7.1 10^3/ul (3.5-10.8)
[2018-09-01 05:34] LABS: BUN/Creatinine Ratio 25.2 (8-20); Calcium 8.8 mg/dL (8.6-10.3); EGFR Non-African American 57.8 (>60); Potassium 4.6 mmol/L (3.5-5.0)
[2018-09-01] MEDS: ARIPiprazole TAB* 2 MG PO SCH (08:27)
[2018-09-01] MEDS: Lisinopril TAB* 5 MG PO SCH (08:28)
[2018-09-01] MEDS: Finasteride TAB* 5 MG PO SCH (08:28)
[2018-09-01] MEDS: Docusate CAP* 100 MG PO SCH (08:28)
[2018-09-01] MEDS: Atorvastatin* 10 MG TAB PO SCH (08:28)
--- NOTE | 2018-09-01 11:58 | PN ---
Progress Note - Progress Note Date of Service: 09/01/18 SOAP: Subjective: []Patient seen at bedside, son who is POA present. Patient is alert but confused to person, place and time, lying in bed supine. Having moderate to severe pain at times, spasms. Objective: [] Vital Signs Temp 98.8 F 09/01/18 07:33 Pulse 57 09/01/18 07:33 Resp 14 09/01/18 08:28 BP 129/61 09/01/18 07:33 Pulse Ox 97 09/01/18 07:33 Intake & Output 08/31/18 09/01/18 09/01/18 18:59 06:59 18:59 Intake Total 0 1140 Output Total 200 850 Balance -200 290 Weight 145 lb Intake: IV Fluids 990 NS (0.9%) 990 Oral 0 150 Output: Thomas 200 850 Other: # Bowel Movements 0 Laboratory Results - last 24 hr 09/01/18 09/01/18 05:00 05:00 WBC 7.1 RBC 3.18 L Hgb 9.9 L Hct 30 L MCV 95 H MCH 31 MCHC 33 RDW 16 H Plt Count 254 MPV 8.2 Neut % (Auto) 78.7 Lymph % (Auto) 12.2 [place] % (Auto) 8.7 Eos % (Auto) 0 Baso % (Auto) 0.4 Absolute Neuts (auto) 5.6 Absolute Lymphs (auto) 0.9 L Absolute Monos (auto) 0.6 Absolute Eos (auto) 0 Absolute Basos (auto) 0 Absolute Nucleated RBC 0 Nucleated RBC % 0.1 Sodium 138 Potassium 4.6 Chloride 107 Carbon Dioxide 26 Anion Gap 5 BUN 30 H Creatinine 1.19 H Est GFR ( Amer) 70.0 Est GFR (Non-Af Amer) 57.8 BUN/Creatinine Ratio 25.2 H Glucose 126 H Calcium 8.8 Left thigh with moderate swelling, compartments soft + Df left ankle 2+ pedal pulse LLE Assessment: []Displaced cynthia prosthetic left proximal femur fracture Plan: []Will allow patient to eat, ORIF/ revision left total hip will be in am with Dr. Mckinney 09/02/18 NPO after midnight tonight Check H&H at 1800 this evening
--- NOTE | 2018-09-01 14:32 | PN ---
Subjective Date of Service: 09/01/18 Interval History: HOSPITALIST PROGRESS NOTE Patient seen and examined at bedside. Care reviewed and d/w Naomie Mireles RN. Confused, c/o pain. Family History: Unchanged from Admission Social History: Unchanged from Admission Past Medical History: Unchanged from Admission Objective Active Medications: Acetaminophen (Tylenol Tab*) 650 mg PO Q6H PRN PRN Reason: pain/fever Aripiprazole (Abilify Tab*) 2 mg PO DAILY [facility] Last Admin: 09/01/18 08:27 Dose: 2 mg Atorvastatin Calcium (Lipitor*) 10 mg PO QAM [facility] Last Admin: 09/01/18 08:28 Dose: 10 mg Docusate Sodium (Colace Cap*) 100 mg PO DAILY [facility] Last Admin: 09/01/18 08:28 Dose: 100 mg Finasteride (Proscar Tab*) 5 mg PO DAILY [facility] Last Admin: 09/01/18 08:28 Dose: 5 mg Sodium Chloride (Ns 0.9% 1000 Ml*) 1,000 mls @ 75 mls/hr IV .per rate [facility] Last Admin: 09/01/18 01:02 Dose: 75 mls/hr Lisinopril (Prinivil Tab*) 5 mg PO QAM [facility] Last Admin: 09/01/18 08:28 Dose: 5 mg Melatonin (Melatonin) 6 mg PO BEDTIME [facility] Last Admin: 08/31/18 20:05 Dose: 6 mg Morphine Sulfate (Morphine Vial*) 1 mg IV Q1H PRN PRN Reason: SEVERE PAIN Last Admin: 09/01/18 12:38 Dose: 1 mg Prochlorperazine Edisylate (Compazine Inj*) 5 mg IV Q6H PRN PRN Reason: NAUSEA/VOMITING Sertraline HCl (Zoloft*) 25 mg PO BEDTIME [facility] Last Admin: 08/31/18 20:05 Dose: 25 mg Vital Signs - 8 hr 09/01/18 09/01/18 09/01/18 06:44 06:45 07:33 Temperature 98.8 F Pulse Rate 57 Respiratory 18 18 14 Rate Blood Pressure 129/61 (mmHg) O2 Sat by Pulse 97 Oximetry 09/01/18 09/01/18 09/01/18 08:00 08:28 11:42 Temperature 99.0 F Pulse Rate 67 Respiratory 18 14 14 Rate Blood Pressure 145/73 (mmHg) O2 Sat by Pulse 99 Oximetry 09/01/18 12:38 Temperature Pulse Rate Respiratory 22 Rate Blood Pressure (mmHg) O2 Sat by Pulse Oximetry Oxygen Devices in Use Now: None Appearance: Elderly gentleman lying in bed in NAD. Eyes: No Scleral Icterus Ears/Nose/Mouth/Throat: Mucous Membranes Moist Neck: Trachea Midline Respiratory: Symmetrical Chest Expansion and Respiratory Effort, Clear to Auscultation Cardiovascular: RRR - Normal S1 and S2 Extremities: - - externally rotated LLE with good capillary refill, calf is soft , non tender Neurological: - - AAOx1 (self only), FROST Result Diagrams: 09/01/18 05:00 09/01/18 05:00 Assess/Plan/Problems-Billing Assessment: Mr Nguyen is an 87yo M with PMH of dementia, HTN, HLD, BPH, CVA, prostate CA s/ p radiation, CKD stage 3, who presented to ED after a fall, foun to have a periprosthetic femur fracture. - Patient Problems (1) Shannon-prosthetic femoral shaft fracture Comment: - Ortho input appreciated - plan for surgical repair with Dr Rice and Nakul. - Continue pain management. (2) CKD (chronic kidney disease) stage 3, GFR 30-59 ml/min Comment: - Renal function remains stable. (3) Dementia Comment: - Continue Sertraline and Abilify. (4) HTN (hypertension) Comment: - Controlled - continue Lisinopril. (5) BPH (benign prostatic hyperplasia) Comment: - Continue finasteride. (6) DVT prophylaxis Comment: - Heparin on hold for surgery. - SCDs. (7) DNR (do not resuscitate)
[2018-09-01] MEDS ORDERED: Haloperidol INJ IV/IM* 5 MG/ML AMP IM ONE (15:01)
[2018-09-01 18:24] LABS: Hematocrit 31 % (42-52)
[2018-09-01] MEDS ORDERED: NS 0.9% 500 ML* 500 ML IV ONE (18:54)
[2018-09-01] MEDS ORDERED: Iodixanol* (CONTRAST) 320 MG/ML 100 ML SDV IV ONE (20:05)
--- NOTE | 2018-09-01 20:16 | PN ---
Progress Note - Progress Note Date of Service: 09/01/18 Note: Called to patient's bedside regarding tachycardia and tachypnea. Patient confused but arousable and answers to his name, hx of baseline dementia reported. Patient tachycardic and tachypneic but not in any acute distress. Plan for IV fluid bolus (NS 500), EKG and CTA chest now.
[2018-09-01] MEDS: Melatonin 3 MG TAB PO SCH (21:05)
[2018-09-01] MEDS: Sertraline* 25 MG TAB PO SCH (21:05)
[2018-09-01] MEDS ORDERED: Buffered Lidocaine 0.9% SYRIN* 5 ML/SYR SYRINGE INTRADERM ONE (21:25)
[2018-09-01] MEDS ORDERED: Cyclobenzaprine TAB* 10 MG PO ONE (23:05)
[2018-09-02] MEDS: Morphine VIAL* 4 MG/ML VIAL (1 ml vial) IV PRN ×2 (01:35→04:24)
[2018-09-02] MEDS: Acetaminophen TAB* 325 MG PO PRN (01:38)
[2018-09-02 04:57] LABS: Hematocrit 26 % (42-52); Hemoglobin 8.5 g/dl (14.0-18.0)
[2018-09-02 05:09] LABS: INR 1.19 (0.77-1.02)
[2018-09-02 05:13] LABS: BUN/Creatinine Ratio 21.7 (8-20); Calcium 8.5 mg/dL (8.6-10.3); Potassium 4.7 mmol/L (3.5-5.0)
[2018-09-02] MEDS: Lactated Ringers 1000 ML Bag* 1,000 ML IV SCH ×2 (05:46→20:39)
--- NOTE | 2018-09-02 08:10 | PN ---
Progress Note - Progress Note Date of Service: 09/02/18 SOAP: Subjective: Operation delayed until today because of instrumentation unavailability. Hospitalist called to see patient for increased HR and RR last night. CTA was negative for PE. IVF given. Patient was previously optimized for surgery by Hospitalist service. Patient's son/HCP at bedside. Objective: Patient unable to answer questions (secondary to dementia) LLE: - externally rotated - warm, well perfused - swelling about left hip Selected Entries 09/02/18 09/02/18 03:16 07:42 Temperature 99.2 F 98.1 F Pulse Rate 83 78 Respiratory 20 20 Rate Blood Pressure 102/56 109/58 (mmHg) O2 Sat by Pulse 95 97 Oximetry Laboratory Tests 09/01/18 09/01/18 09/02/18 05:00 18:09 04:47 Hgb 9.9 L 10.0 L 8.5 L Hct 30 L 31 L 26 L INR (Anticoag Therapy) Creatinine 09/02/18 09/02/18 04:47 04:47 Hgb Hct INR (Anticoag Therapy) 1.19 H Creatinine 1.84 H Assessment: HD 3 L proximal fmeur periprosthetic fracture with loose femoral implant Plan: - to OR for ORIF proximal femur periprosthetic fracture and revision LINDA with a long revision femoral stem - Consent from the patient's son/HCP. Explained risks and potential complications, including - Given Hct down to 26, we will will continue to monitor and be ready to transfuse.
[2018-09-02] MEDS ORDERED: fentaNYL* 50 MCG/ML 2 ML VIAL (100 MCG VIAL) ONE ×2 (08:47→13:52)
[2018-09-02] MEDS ORDERED: Lidocaine 2% PF * 5 ML VIAL ONE (08:47)
[2018-09-02] MEDS ORDERED: Propofol* 10 MG/ML 20 ML BTL ONE ×3 (08:47→10:38)
[2018-09-02] MEDS ORDERED: Rocuronium* 10 MG/ML VIAL ONE ×2 (08:49→11:27)
[2018-09-02] MEDS ORDERED: ceFAZolin 2 GM PREMIX in ORs 2 GM/50 ML BAG IVPB ONE (09:14)
[2018-09-02 10:39] LABS: Hematocrit 27 % (42-52); Hemoglobin 8.8 g/dl (14.0-18.0)
[2018-09-02 11:45] LABS: Hematocrit 30 % (42-52); Hemoglobin 9.5 g/dl (14.0-18.0)
[2018-09-02] MEDS ORDERED: Neostigmine Methylsulfate* 2 MG/2 ML SYRINGE ONE (12:03)
[2018-09-02] MEDS ORDERED: Glycopyrrolate IV* 0.2 MG/ML 1 ML VIAL ONE (12:03)
[2018-09-02] MEDS ORDERED: Ondansetron INJ* 2 MG/ML VIAL IV PRN (13:04)
[2018-09-02] MEDS ORDERED: Naloxone* 0.4 MG/ML 1 ML VIAL IV PRN (13:04)
[2018-09-02] MEDS ORDERED: Meperidine Carpuject* 75 MG/ML CARPUJECT SYRINGE IV PRN (13:06)
--- NOTE | 2018-09-02 13:20 | PN ---
Subjective Date of Service: 09/02/18 Interval History: HOSPITALIST PROGRESS NOTE Patient seen and examined at bedside. Care reviewed and d/w Louise Childs RN. Last night events noted - tachycardic and tachypneic, EKG showed sinus tachycardia with PVCs, CTA chest was negative for PE. Suspect these changes were secondary to pain. Continues to be confused and agitated. Family History: Unchanged from Admission Social History: Unchanged from Admission Past Medical History: Unchanged from Admission Objective Active Medications: Acetaminophen (Tylenol Tab*) 650 mg PO Q6H PRN PRN Reason: pain/fever Last Admin: 09/02/18 01:38 Dose: 650 mg Aripiprazole (Abilify Tab*) 2 mg PO DAILY [facility] Last Admin: 09/01/18 08:27 Dose: 2 mg Atorvastatin Calcium (Lipitor*) 10 mg PO QAM [facility] Last Admin: 09/01/18 08:28 Dose: 10 mg Docusate Sodium (Colace Cap*) 100 mg PO DAILY [facility] Last Admin: 09/01/18 08:28 Dose: 100 mg Fentanyl Citrate (Fentanyl*) 25 mcg IV Q2M PRN PRN Reason: PAIN - MODERATE Finasteride (Proscar Tab*) 5 mg PO DAILY [facility] Last Admin: 09/01/18 08:28 Dose: 5 mg Sodium Chloride (Ns 0.9% 1000 Ml*) 1,000 mls @ 75 mls/hr IV .per rate [facility] Last Admin: 09/01/18 23:20 Dose: 75 mls/hr Lactated Ringer's (Lactated Ringers 1000 Ml Bag*) 1,000 mls @ 125 mls/hr IV PER RATE [facility] Last Admin: 09/02/18 05:46 Dose: 125 mls/hr Lisinopril (Prinivil Tab*) 5 mg PO QAM [facility] Last Admin: 09/01/18 08:28 Dose: 5 mg Melatonin (Melatonin) 6 mg PO BEDTIME [facility] Last Admin: 09/01/18 21:05 Dose: 6 mg Meperidine HCl (Demerol Syringe*) 15 mg IV ONCE PRN PRN Reason: PAIN/INFLAMMATION Morphine Sulfate (Morphine Vial*) 1 mg IV Q1H PRN PRN Reason: SEVERE PAIN Last Admin: 09/02/18 04:24 Dose: 1 mg Naloxone HCl (Narcan*) 0.08 mg IV Q2M PRN PRN Reason: severe induced resp depression Ondansetron HCl (Zofran Inj*) 4 mg IV ONCE PRN PRN Reason: NAUSEA/VOMITING Prochlorperazine Edisylate (Compazine Inj*) 5 mg IV Q6H PRN PRN Reason: NAUSEA/VOMITING Sertraline HCl (Zoloft*) 25 mg PO BEDTIME [facility] Last Admin: 09/01/18 21:05 Dose: 25 mg Vital Signs - 8 hr 09/02/18 09/02/18 09/02/18 05:43 06:14 07:20 Temperature Pulse Rate Respiratory 22 20 19 Rate Blood Pressure (mmHg) O2 Sat by Pulse Oximetry 09/02/18 07:42 Temperature 98.1 F Pulse Rate 78 Respiratory 20 Rate Blood Pressure 109/58 (mmHg) O2 Sat by Pulse 97 Oximetry Oxygen Devices in Use Now: None Appearance: Elderly gentleman lying in bed in NAD, but appears uncomfortable Eyes: No Scleral Icterus Ears/Nose/Mouth/Throat: Mucous Membranes Moist Neck: Trachea Midline Respiratory: Symmetrical Chest Expansion and Respiratory Effort, Clear to Auscultation Cardiovascular: RRR - Normal S1 and S2 Neurological: - - AAOx1 (self) Result Diagrams: 09/02/18 11:35 09/02/18 04:47 Assess/Plan/Problems-Billing Assessment: Mr Nguyen is an 87yo M with PMH of dementia, HTN, HLD, BPH, CVA, prostate CA s/ p radiation, CKD stage 3, who presented to ED after a fall, foun to have a periprosthetic femur fracture. - Patient Problems (1) Shannon-prosthetic femoral shaft fracture Comment: - Ortho input appreciated - plan for surgical repair with Dr Rice and Nakul today. - Continue pain management. - Patient is optimized for proposed procedure. (2) CKD (chronic kidney disease) stage 3, GFR 30-59 ml/min Comment: - Creatinine trending up - will continue IVF and monitor. (3) Delirium Comment: - Continue supportive care. (4) Dementia Comment: - Continue Sertraline and Abilify. (5) HTN (hypertension) Comment: - BP on the low normal side, with creatinine increase - will d/c Lisinopril. (6) BPH (benign prostatic hyperplasia) Comment: - Continue finasteride. (7) DVT prophylaxis Comment: - Heparin on hold for surgery. - SCDs. (8) DNR (do not resuscitate)
[2018-09-02] MEDS: fentaNYL* 50 MCG/ML 2 ML VIAL (100 MCG VIAL) IV PRN ×3 (13:53→14:27)
[2018-09-02] MEDS: ARIPiprazole TAB* 2 MG PO SCH (15:08)
[2018-09-02] MEDS: Finasteride TAB* 5 MG PO SCH (15:08)
[2018-09-02] MEDS: Atorvastatin* 10 MG TAB PO SCH (15:08)
[2018-09-02] MEDS: Docusate CAP* 100 MG PO SCH (15:08)
[2018-09-02] MEDS: Lisinopril TAB* 5 MG PO SCH (15:08)
[2018-09-02] MEDS ORDERED: oxyCODONE/Acetamin 5/325 MG* TAB PO PRN (17:19)
[2018-09-02] MEDS: oxyCODONE/Acetamin 5/325 MG* TAB PO PRN (19:56)
[2018-09-02] MEDS: Sertraline* 25 MG TAB PO SCH (21:39)
[2018-09-02] MEDS: Melatonin 3 MG TAB PO SCH (21:39)
[2018-09-02] MEDS: ceFAZolin 1 GM* Q8H (AddVan) IVPB SCH ×2 (21:39)
--- NOTE | 2018-09-03 02:19 | OP ---
DATE OF OPERATION: 09/02/18 - ROOM #339 DATE OF : 30 SURGEON: Jabari Rice MD ASSISTANTS: 1. Satya Mota MD 2. INGA Cullen Assistance of another orthopedic surgeon was required given the complexity of the case. This was discussed with the patient's family preoperatively. Physician application assistant was also required for assistance with positioning, retraction, instrumentation, and closure. ANESTHESIOLOGIST: Dr. Rubin Vinson. ANESTHESIA: General anesthesia. PRE-OP DIAGNOSES: 1. Left proximal femur periprosthetic fracture. 2. 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 3. Status post 2009 left total hip arthroplasty performed by Dr. Ibarra. POST-OP DIAGNOSES: 1. Left proximal femur periprosthetic fracture. 2. 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 3. Status post 2008 left total hip arthroplasty performed by Dr. Ibarra. OPERATIVE PROCEDURE: 1. Revision, left total hip arthroplasty, with exchange/change of femoral component. 2. Open reduction internal fixation left proximal femur in the area of the trochanter with a lateral plate and cerclage cables. 3. Modifier 22 for an unusual and complex procedure, given the periprosthetic nature of this fracture. INDICATIONS: The patient is an 87-year-old man, with dementia, who lives at the [facility] locally, and who ambulates with a walker, but stays in the [facility], and according to his son, does not ambulate a significant amount, who sustained a fall at the [facility] on 08/31/18 two days preoperatively. The history was obtained from the patient's son or one of his sons, who lives locally and is his healthcare proxy. The patient has a history of a stroke and dementia, making him a poor historian and making the patient and his ability to communicate limited. The son of the patient suspected that the patient was perhaps walking without his walker at the time of the fall. The patient was brought to the emergency room at [facility]. Emergency department did appropriate workup for other injuries. Orthopedic service was consulted for a left proximal femur fracture. Radiographs showed a [place] type B2 fracture of the left proximal femur, periprosthetic. The femoral stem appeared loose and the bone was displaced at the fracture site. The patient was medically optimized by the hospitalist service and cleared for surgery by the anesthesia team. The orthopedic surgery service requested appropriate hardware be brought to the hospital. This included the revision modular system from [employer], the advanced implants would be required to span the fracture site. As well, a plate would be utilized to openly reduce and fix the fracture. We decided on using the fracture plate system from [employer]. As soon as instrumentation was available, we scheduled the surgery. We had been following the hematocrit preoperatively. The patient was noted early in the morning prior to surgery to have a decreased hematocrit to 26, and so 2 units of packed red blood cells were typed and crossed, expecting intraoperative bleeding to lower this. Obtained consent from the patient's son. The son is the healthcare proxy and lives locally. Discussed risks and potential complications of surgery including bleeding, infection, nerve or blood vessel injury, refracture, dislocation, failure of hardware, failure of implants, blood clot, including other possible complications. Discussed rationale for surgical management. IV FLUIDS: See Anesthesia note. IV fluids were provided as was 2 units of packed red blood cells intraoperatively. ANTIBIOTICS: Ancef 2 g IV. [id number] TIME: Approximately 178 minutes. RADIATION EXPOSURE: Large C-arm was utilized. Amount of time and quantity of exposure not currently available. SPECIMEN: Prior femoral component was removed from the patient. This included a femoral stem, noncemented of the femoral head. IMPLANTS: ZMR [employer] Hip Revision System, femoral stem of 14 mm diameter, 185 mm in length, revision, taper, nitrided. ZMR femoral body with a porous coating , cone body side A with a 46-mm neck offset. Femoral head was 32-mm diameter and +7 mm neck length. We also used a plate from [employer], a 200-mm medium sized [facility] trochanteric phlebotomy supervisor plate with 2 unbeaded cables. We also used 4 additional cables, which were packed separately and were all beaded and were all size 2.0 mm. COMPLICATIONS: None. ESTIMATED BLOOD LOSS: Approximately 500 cc. DESCRIPTION OF PROCEDURE: The patient's son signed the written consent just before the patient was brought to preoperative holding from his floor bed. Operative side was marked with a marking pen. The patient was brought back to the operating room and placed supine on operating room table. The patient was sedated and intubated. The patient was placed in the lateral decubitus position with the left hip up. Peg board was in place. Pegs were applied appropriately. Axillary roll was in place. Bony prominences about the lower extremity were well padded. A nonsterile U-drape was placed, quarantining the implant surgical area from the perineum. The left hip was prepped with ChloraPrep multiple times and then draped. Surgical time-out was performed. A standard skin incision for the posterior hip approach was performed. This was initially centered over the proximal tip of the greater trochanter, relatively straight with the hip flexed to 70 degrees. I extended the skin incision further distal than routine, anticipating the placement of a trochanteric plate. This new skin incision was at least 2 cm anterior of the prior surgical skin incision from 2008. Changed gloves and dissected down to the iliotibial band and gluteus vickie fascia. Cleared small amount of the fascia. Then, used a deep knife with the hip abducted to split the iliotibial band and then the gluteus vickie fascia, in line with skin incision. I then split some gluteus vickie muscle. There was no need for hemostasis with the splitting up this muscle. The hip was extended and internally rotated. I released some inflamed greater trochanteric bursal tissue posteriorly. Retractors were placed, two Cobras, one deep to the hip abductors just superficial to the superior capsule, one around the lesser trochanter posteriorly. This exposed the posterior repair from the prior surgical procedure, consisting of piriformis and conjoint tendon as well as posterior capsule. With the hip completely internally rotated, I released the structures directly off bone with Bovie electrocautery. I was then able to visualize the head and neck of the prosthesis. We next manipulated the hip to deliberate into a good view. I next used a series of osteotomes to separate the femoral implant from the surrounding bone. In growth was best at the proximal most part of the lateral aspect of the femoral implant. This was then removed. We noted after the implant was removed the shape of the fracture. There was a greater trochanteric large fragment that was clearly mobile. There was also an element of the proximal posterior femur that had a small fragment to it, not including the lesser trochanter. Having removed the femoral implant, we next went about reducing the fractures. I incised the vastus lateralis in its midline, directly overlying the femoral shaft. This enabled me good visualization of the femoral shaft, which I cleared off with the Lemus elevator. We were able to manually reduce the femur. We placed a trial femoral component in the canal to keep the bone from being over-reduced. We next placed 2 non- beaded cables around the proximal femoral shaft. We were careful to pass these directly on bone. These cables were passed through the greater trochanteric plate, the longest available 200 mm. These cables were partially tightened. C-arm was brought in. Radiographs were obtained, which showed excellent reduction of bone and placement of hardware proximally. However, full visualization revealed the femoral trial implants that we had placed within the canal, to avoid overtightening, to be out through the distal most aspect of the fracture. We therefore used a longer trial femoral implant, and re-reduced the bone manually and retightened the cables in the trochanteric plate. We obtained new C-arm images, which showed excellent placement of plate and wires, a full reduction of fracture lines, and excellent position of trial implant. We malleted the proximal hook of the hook plate into the trochanter. We passed an additional cable. We tightened all 3 cables and cinched the brackets within the plate. We then passed one more additional cable distally. Radiographs showed still excellent position of hardware and excellent reduction of the femur. We next revised the femoral component. We removed the thinnest trial that we have been using during our reduction and fixation of the fracture. We reamed by hand the proximal femoral shaft past the isthmus. We reamed up to 15 mm, although the 15-mm reamer we only placed usp down, so that it was just more than [id number] reaming. We next placed a trial 14-mm stem. We trialed a variety of cone bodies, with 2 different offsets. We trialed different neck lengths. Ultimately, we decided to place a 14-mm distal stem and a size A cone body with a 46-mm normal neck offset. We assembled femoral distal and proximal stem implant and placed it at approximately 15 degrees of anteversion. We next trialed several heads, with different neck lengths. We decided on a +7 mm neck length head. I had noted that the patient was likely 1 cm long in the left lower extremity after his 2008 surgery. We were okay with perhaps some additional left lower extremity limb lengthening to obtain the greatest amount of stability. With our trialing, the patient was stable to 90 degrees at least to flexion and at least 40 degrees of internal rotation in an adducted position. We placed the final head implant. Irrigation. With final femoral implant placed, we placed one additional cerclage wire through the greater trochanteric plate. We did so most proximally , to try to reduce a small fragment of the posterior proximal most femur. We ran this wire distal to the lesser trochanter to keep it in place. Irrigation. Closure of the posterior tissues, piriformis conjoint tendon and posterior capsule was performed with 4 stitches using FiberWire #2 suture placed through 2 holes drilled in the posterior proximal femur with a 2-mm drill bit. This nicely opposed the posterior tissues. I also placed a short running stitch using Ethibond 1 suture, between these posterior tissues and the hip abductors. Irrigation. Closure of the vastus lateralis with running stitches using Ethibond #1 suture. Closure of the iliotibial band and gluteus vickie fascia with a combination of [id number] stitches and running stitches using Ethibond #1 suture. A closure of the subcutaneous tissue with buried simple stitches using Vicryl 2-0 suture. Closure of the skin with daiana. Xeroform, 4x4s, ABDs, foam tape. The patient was placed in a hip abduction pillow brace. The patient was converted to supine, extubated and transferred to the PACU. DISPOSITION: Postoperatively, the patient was readmitted to the medicine service. The patient was to start physical therapy, partial weightbearing left lower extremity. When in bed, at all times, the patient is to have the hip abduction brace in place. The patient was to receive postoperative antibiotics , namely, Ancef 1 g IV q.8 hours x72 hours postoperative. I chose 3 days rather than 1 given the patient's frail state, his older age, and the significant amount of hardware present in his left thigh. The patient will be anticoagulated with Lovenox 30 mg subcu once daily, starting on postoperative day 1 in the morning. Case Management will work on disposition planning when appropriately medically stable. We will obtain hematocrit in the PACU shortly after a period to look for any additional drops requiring additional transfusion. Appropriate medical management. The patient will follow up with me approximately 14 to 17 days postoperative in clinic for a wound check and removal of daiana. [id number]/[facility] #: [id number] RUFINA
[2018-09-03] MEDS: Lactated Ringers 1000 ML Bag* 1,000 ML IV SCH (04:46)
[2018-09-03 05:38] LABS: Hematocrit 26 % (42-52); Hemoglobin 8.8 g/dl (14.0-18.0)
[2018-09-03 05:56] LABS: BUN/Creatinine Ratio 25.9 (8-20); Calcium 8.4 mg/dL (8.6-10.3); EGFR Non-African American 38.3 (>60); Potassium 4.9 mmol/L (3.5-5.0)
[2018-09-03] MEDS: ceFAZolin 1 GM* Q8H (AddVan) IVPB SCH ×4 (08:33→22:09)
[2018-09-03] MEDS: ARIPiprazole TAB* 2 MG PO SCH (08:34)
[2018-09-03] MEDS: Lisinopril TAB* 5 MG PO SCH (08:34)
[2018-09-03] MEDS: Docusate CAP* 100 MG PO SCH (08:35)
[2018-09-03] MEDS: Atorvastatin* 10 MG TAB PO SCH (08:35)
[2018-09-03] MEDS: Finasteride TAB* 5 MG PO SCH (08:35)
[2018-09-03] MEDS: Enoxaparin(*) 30 MG/0.3 ML SYR SUBCUT SCH (08:39)
[2018-09-03] MEDS: oxyCODONE/Acetamin 5/325 MG* TAB PO PRN (08:44)
--- NOTE | 2018-09-03 08:55 | PN ---
Progress Note - Progress Note Date of Service: 09/03/18 SOAP: Subjective: [] Patient was seen and examined at bedside today. He exchanged minimal conversation with me and minimally able to follow any direction. Only word spoken during my visit was pain, but unable to elaborate. Per nursing, last BM is unknown and bowel meds requested. Objective: []General: NAD, appears alert but does not exchange conversation LLE: Dressing is CDI, thigh is soft, no surrounding erythema. DP2+, capillary refill is less than two seconds distally. Patient does not follow direction to move LLE at all. Calves are supple and nontender without erythema, edema or palpable cords Assessment: [] POD 1 s/p ORIF proximal femur periprosthetic fracture and revision LINDA with a long revision femoral stem Plan: []Partial WB- TTWB for now until discuss specifics of partial WB with Dr. Rice Abduction pillow while in bed, hip precautions PT/OT Ancef x 72 hours post op Continue lovenox 30 mg qd qd x 4 weeks post op Vital Signs Temp 99.6 F 09/03/18 07:24 Pulse 68 09/03/18 08:13 Resp 18 09/03/18 08:44 BP 129/55 09/03/18 07:24 Pulse Ox 99 09/03/18 07:24 Intake & Output 09/02/18 09/03/18 09/03/18 18:59 06:59 18:59 Intake Total 1950 2540 Output Total 200 550 Balance 1750 1989 Weight 185 lb 11.2 oz Intake: IV Fluids 1950 1960 LR 1250 1960 NS 650 NS 50ML, Cefazolin 2G 50 IVPB 50 ABX - CEFAZOLIN 50 Oral 530 Output: Urine 0 300 Thomas 200 250 Other: Estimated Blood Loss 600 Comment Laboratory Last Values WBC 7.1 10^3/ul (3.5-10.8) 09/01/18 05:00 RBC 3.18 10^6/ul (4.00-5.40) L 09/01/18 05:00 Hgb 8.8 g/dl (14.0-18.0) L 09/03/18 05:19 Hct 26 % (42-52) L 09/03/18 05:19 MCV 95 fL (80-94) H 09/01/18 05:00 MCH 31 pg (27-31) 09/01/18 05:00 MCHC 33 g/dl (31-36) 09/01/18 05:00 RDW 16 % (10.5-15) H 09/01/18 05:00 Plt Count 254 10^3/ul (150-450) 09/01/18 05:00 MPV 8.2 fL (7.4-10.4) 09/01/18 05:00 Neut % (Auto) 78.7 % 09/01/18 05:00 Lymph % (Auto) 12.2 % 09/01/18 05:00 [place] % (Auto) 8.7 % 09/01/18 05:00 Eos % (Auto) 0 % 09/01/18 05:00 Baso % (Auto) 0.4 % 09/01/18 05:00 Absolute Neuts (auto) 5.6 10^3/ul (1.5-7.7) 09/01/18 05:00 Absolute Lymphs (auto) 0.9 10^3/ul (1.0-4.8) L 09/01/18 05:00 Absolute Monos (auto) 0.6 10^3/ul (0-0.8) 09/01/18 05:00 Absolute Eos (auto) 0 10^3/ul (0-0.6) 09/01/18 05:00 Absolute Basos (auto) 0 10^3/ul (0-0.2) 09/01/18 05:00 Absolute Nucleated RBC 0 10^3/ul 09/01/18 05:00 Nucleated RBC % 0.1 09/01/18 05:00 INR (Anticoag Therapy) 1.19 (0.77-1.02) H 09/02/18 04:47 APTT 27.2 seconds (26.0-36.3) 08/31/18 05:55 Sodium 144 mmol/L (135-145) 09/03/18 05:19 Potassium 4.9 mmol/L (3.5-5.0) 09/03/18 05:19 Chloride 113 mmol/L (101-111) H 09/03/18 05:19 Carbon Dioxide 22 mmol/L (22-32) 09/03/18 05:19 Anion Gap 9 mmol/L (2-11) 09/03/18 05:19 BUN 44 mg/dL (6-24) H 09/03/18 05:19 Creatinine 1.70 mg/dL (0.67-1.17) H 09/03/18 05:19 Est GFR ( Amer) 46.4 (>60) 09/03/18 05:19 Est GFR (Non-Af Amer) 38.3 (>60) 09/03/18 05:19 BUN/Creatinine Ratio 25.9 (8-20) H 09/03/18 05:19 Glucose 99 mg/dL (70-100) 09/03/18 05:19 Lactic Acid 0.9 mmol/L (0.5-2.0) 08/31/18 05:55 Calcium 8.4 mg/dL (8.6-10.3) L 09/03/18 05:19 Total Bilirubin 0.50 mg/dL (0.2-1.0) 08/31/18 05:48 AST 15 U/L (13-39) 08/31/18 05:48 ALT 9 U/L (7-52) 08/31/18 05:48 Alkaline Phosphatase 55 U/L (34-104) 08/31/18 05:48 Troponin I 0.03 ng/mL (<0.04) 08/31/18 05:48 Total Protein 6.1 g/dL (6.4-8.9) L 08/31/18 05:48 Albumin 3.5 g/dL (3.2-5.2) 08/31/18 05:48 Globulin 2.6 g/dL (2-4) 08/31/18 05:48 Albumin/Globulin Ratio 1.3 (1-3) 08/31/18 05:48 Urine Color Yellow 08/31/18 08:23 Urine Appearance Clear 08/31/18 08:23 Urine pH 5.0 (5-9) 08/31/18 08:23 Ur Specific [place] 1.016 (1.010-1.030) 08/31/18 08:23 Urine Protein Negative (Negative) 08/31/18 08:23 Urine Ketones Negative (Negative) 08/31/18 08:23 Urine Blood Negative (Negative) 08/31/18 08:23 Urine Nitrate Negative (Negative) 08/31/18 08:23 Urine Bilirubin Negative (Negative) 08/31/18 08:23 Urine Urobilinogen Negative (Negative) 08/31/18 08:23 Ur Leukocyte Esterase Negative (Negative) 08/31/18 08:23 Urine Glucose Negative (Negative) 08/31/18 08:23 Urine Ascorbic Acid * (Negative) A 08/31/18 08:23 Blood Type A Positive 08/31/18 05:55 Antibody Screen Negative 08/31/18 05:55 Crossmatch See Detail 08/31/18 05:55
[2018-09-03] MEDS ORDERED: Senna TAB PO PRN (11:21)
--- NOTE | 2018-09-03 13:04 | PN ---
Subjective Date of Service: 09/03/18 Interval History: HOSPITALIST PROGRESS NOTE Patient seen and examined at bedside. Care reviewed and d/w Rodolfo Austin RN. He's alert and awake today, less confused than last night. Family History: Unchanged from Admission Social History: Unchanged from Admission Past Medical History: Unchanged from Admission Objective Active Medications: Acetaminophen (Tylenol Tab*) 650 mg PO Q6H PRN PRN Reason: pain/fever Last Admin: 09/02/18 01:38 Dose: 650 mg Aripiprazole (Abilify Tab*) 2 mg PO DAILY [facility] Last Admin: 09/03/18 08:34 Dose: 2 mg Atorvastatin Calcium (Lipitor*) 10 mg PO QAM [facility] Last Admin: 09/03/18 08:35 Dose: 10 mg Docusate Sodium (Colace Cap*) 100 mg PO DAILY [facility] Last Admin: 09/03/18 08:35 Dose: 100 mg Enoxaparin Sodium (Lovenox(*)) 30 mg SUBCUT DAILY [facility] Last Admin: 09/03/18 08:39 Dose: 30 mg Finasteride (Proscar Tab*) 5 mg PO DAILY [facility] Last Admin: 09/03/18 08:35 Dose: 5 mg Lactated Ringer's (Lactated Ringers 1000 Ml Bag*) 1,000 mls @ 125 mls/hr IV PER RATE [facility] Last Admin: 09/03/18 04:46 Dose: 125 mls/hr Cefazolin Sodium 1 gm/ Sodium (Chloride) 50 mls @ 200 mls/hr IVPB Q12H [facility] Stop: 09/05/18 09:14 Last Admin: 09/03/18 08:33 Dose: 200 mls/hr Lactulose (Lactulose*) 30 ml PO DAILY PRN PRN Reason: CONSTIPATION Lisinopril (Prinivil Tab*) 5 mg PO QAM [facility] Last Admin: 09/03/18 08:34 Dose: 5 mg Magnesium Hydroxide (Milk Of Magnesia Liq*) 30 ml PO BID PRN PRN Reason: CONSTIPATION Melatonin (Melatonin) 6 mg PO BEDTIME [facility] Last Admin: 09/02/18 21:39 Dose: 6 mg Morphine Sulfate (Morphine Vial*) 1 mg IV Q1H PRN PRN Reason: SEVERE PAIN Last Admin: 09/02/18 04:24 Dose: 1 mg Oxycodone/Acetaminophen (Percocet 5/325 Tab*) 1 tab PO Q4H PRN PRN Reason: PAIN Last Admin: 09/03/18 08:44 Dose: 1 tab Oxycodone/Acetaminophen (Percocet 5/325 Tab*) 2 tab PO Q4H PRN PRN Reason: PAIN Prochlorperazine Edisylate (Compazine Inj*) 5 mg IV Q6H PRN PRN Reason: NAUSEA/VOMITING Senna (Senokot Tab*) 1 tab PO BEDTIME PRN PRN Reason: CONSTIPATION Sertraline HCl (Zoloft*) 25 mg PO BEDTIME ABE Last Admin: 09/02/18 21:39 Dose: 25 mg Vital Signs - 8 hr 09/03/18 09/03/18 09/03/18 07:24 08:00 08:13 Temperature 99.6 F Pulse Rate 114 68 Respiratory 18 16 Rate Blood Pressure 129/55 (mmHg) O2 Sat by Pulse 99 99 Oximetry 09/03/18 09/03/18 09/03/18 08:44 11:29 11:34 Temperature 98.6 F Pulse Rate 91 Respiratory 18 18 20 Rate Blood Pressure 95/54 (mmHg) O2 Sat by Pulse 97 Oximetry Oxygen Devices in Use Now: None Appearance: Elderly gentleman sitting up in bed in NAD. Eyes: No Scleral Icterus Ears/Nose/Mouth/Throat: Mucous Membranes Moist Neck: Trachea Midline Respiratory: Symmetrical Chest Expansion and Respiratory Effort, Clear to Auscultation Cardiovascular: RRR - Normal S1 and S2 Abdominal: NL Sounds; No Tenderness; No Distention Extremities: - - Good capillary refill Neurological: - - AAOx1 self only Result Diagrams: 09/03/18 05:19 09/03/18 05:19 Assess/Plan/Problems-Billing Assessment: Mr Nguyen is an 87yo M with PMH of dementia, HTN, HLD, BPH, CVA, prostate CA s/ p radiation, CKD stage 3, who presented to ED after a fall, foun to have a periprosthetic femur fracture. - Patient Problems (1) Shannon-prosthetic femoral shaft fracture Comment: - S/p revision left hip arthroplasty, ORIF left proximal femur . - Management as per Ortho. (2) CKD (chronic kidney disease) stage 3, GFR 30-59 ml/min Comment: - Creatinine improving - continue gentle IVF and monitor. (3) Delirium Comment: - Continue supportive care. (4) Dementia Comment: - Continue Sertraline and Abilify. (5) HTN (hypertension) Comment: - BP on the low normal side, with creatinine increase - off Lisinopril for now. (6) BPH (benign prostatic hyperplasia) Comment: - Continue finasteride. (7) DVT prophylaxis Comment: - Lovenox for 4 weeks. (8) DNR (do not resuscitate) Status and Disposition: Inpatient. Will need SNF for rehab.
[2018-09-03] MEDS: Sertraline* 25 MG TAB PO SCH (22:11)
[2018-09-03] MEDS: Melatonin 3 MG TAB PO SCH (22:11)
--- NOTE | 2018-09-04 04:20 | PN ---
Progress Note - Progress Note Date of Service: 09/04/18 Note: Patient continues with urinary retention - Straight cath x 1 ordered
[2018-09-04 05:10] LABS: ABS Basophils 0 10^3/ul (0-0.2); ABS Eosinophils 0 10^3/ul (0-0.6); ABS Lymphocytes 0.8 10^3/ul (1.0-4.8); ABS Monocytes 0.9 10^3/ul (0-0.8); ABS Neutrophils 7.7 10^3/ul (1.5-7.7); ABS Nucleated RBC 0 10^3/ul; Eosinophil % 0 %; Hematocrit 23 % (42-52); Hemoglobin 7.8 g/dl (14.0-18.0); Lymphocyte % 8.2 %; Mean Corpuscular HGB Conc 34 g/dl (31-36); Mean Corpuscular Hemoglobin 31 pg (27-31); Mean Corpuscular Volume 93 fL (80-94); Nucleated Red Blood Cells % 0; Platelet Count 245 10^3/ul (150-450); Red Blood Count 2.47 10^6/ul (4.00-5.40); Red Cell Distribution Width 16 % (10.5-15); White Blood Count 9.4 10^3/ul (3.5-10.8)
[2018-09-04 05:24] LABS: BUN/Creatinine Ratio 35.3 (8-20); Calcium 8.6 mg/dL (8.6-10.3); EGFR Non-African American 44.3 (>60); Potassium 4.2 mmol/L (3.5-5.0)
[2018-09-04] MEDS: Acetaminophen TAB* 325 MG PO PRN ×2 (07:55→17:32)
--- NOTE | 2018-09-04 09:07 | PN ---
Progress Note - Progress Note Date of Service: 09/04/18 SOAP: - Progress Note Date of Service: 09/04/18 Subjective: [] Patient was seen and examined at bedside today. He does not communicate with me or follow direction. Objective: []General: NAD, appears alert, does not exchange conversation LLE: Dressing is CDI, thigh is soft, no surrounding erythema. DP2+, capillary refill is less than two seconds distally. Wiggling toes spontaneously but will not follow commands Calves are supple and nontender without erythema, edema or palpable cords Assessment: [] POD 2 s/p ORIF proximal femur periprosthetic fracture and revision LINDA with a long revision femoral stem Acute bloodloss anemia Plan: []Generally, TTWB LLE. May weight bear up to 50% with bed to chair transfers and with PT if well tolerated and able to follow direction. Abduction pillow while in bed, hip precautions PT/OT Ancef x 72 hours post op Continue lovenox 30 mg qd qd x 4 weeks post op H/H 7.8/23 today - H/H repeat later today and transfuse if Hb<7.0 First dressing change tomorrow Has bed at [facility] when medically ready Temp Pulse Resp BP Pulse Ox 99.1 F 67 16 118/53 98 09/04/18 11:28 09/04/18 11:32 09/04/18 11:28 09/04/18 11:28 09/04/18 11:28 Intake & Output 09/03/18 09/04/18 09/04/18 18:59 06:59 18:59 Intake Total 1355 600 360 Output Total 225 725 Balance 1130 -125 360 Weight 191 lb 8 oz Intake: IV Fluids 1055 ABX - CEFAZOLIN 55 LR 1000 Oral 300 600 360 Output: Urine 0 0 Thomas 225 Straight Cath 725 Laboratory Last Values WBC 9.4 10^3/ul (3.5-10.8) 09/04/18 04:57 RBC 2.47 10^6/ul (4.00-5.40) L 09/04/18 04:57 Hgb 7.8 g/dl (14.0-18.0) L 09/04/18 04:57 Hct 23 % (42-52) L 09/04/18 04:57 MCV 93 fL (80-94) 09/04/18 04:57 MCH 31 pg (27-31) 09/04/18 04:57 MCHC 34 g/dl (31-36) 09/04/18 04:57 RDW 16 % (10.5-15) H 09/04/18 04:57 Plt Count 245 10^3/ul (150-450) 09/04/18 04:57 MPV 8.0 fL (7.4-10.4) 09/04/18 04:57 Neut % (Auto) 81.8 % 09/04/18 04:57 Lymph % (Auto) 8.2 % 09/04/18 04:57 [place] % (Auto) 9.9 % 09/04/18 04:57 Eos % (Auto) 0 % 09/04/18 04:57 Baso % (Auto) 0.1 % 09/04/18 04:57 Absolute Neuts (auto) 7.7 10^3/ul (1.5-7.7) 09/04/18 04:57 Absolute Lymphs (auto) 0.8 10^3/ul (1.0-4.8) L 09/04/18 04:57 Absolute Monos (auto) 0.9 10^3/ul (0-0.8) H 09/04/18 04:57 Absolute Eos (auto) 0 10^3/ul (0-0.6) 09/04/18 04:57 Absolute Basos (auto) 0 10^3/ul (0-0.2) 09/04/18 04:57 Absolute Nucleated RBC 0 10^3/ul 09/04/18 04:57 Nucleated RBC % 0 09/04/18 04:57 INR (Anticoag Therapy) 1.19 (0.77-1.02) H 09/02/18 04:47 APTT 27.2 seconds (26.0-36.3) 08/31/18 05:55 Sodium 144 mmol/L (135-145) 09/04/18 04:57 Potassium 4.2 mmol/L (3.5-5.0) 09/04/18 04:57 Chloride 114 mmol/L (101-111) H 09/04/18 04:57 Carbon Dioxide 26 mmol/L (22-32) 09/04/18 04:57 Anion Gap 4 mmol/L (2-11) 09/04/18 04:57 BUN 53 mg/dL (6-24) H 09/04/18 04:57 Creatinine 1.50 mg/dL (0.67-1.17) H 09/04/18 04:57 Est GFR ( Amer) 53.6 (>60) 09/04/18 04:57 Est GFR (Non-Af Amer) 44.3 (>60) 09/04/18 04:57 BUN/Creatinine Ratio 35.3 (8-20) H 09/04/18 04:57 Glucose 136 mg/dL (70-100) H 09/04/18 04:57 Lactic Acid 0.9 mmol/L (0.5-2.0) 08/31/18 05:55 Calcium 8.6 mg/dL (8.6-10.3) 09/04/18 04:57 Total Bilirubin 0.50 mg/dL (0.2-1.0) 08/31/18 05:48 AST 15 U/L (13-39) 08/31/18 05:48 ALT 9 U/L (7-52) 08/31/18 05:48 Alkaline Phosphatase 55 U/L (34-104) 08/31/18 05:48 Troponin I 0.03 ng/mL (<0.04) 08/31/18 05:48 Total Protein 6.1 g/dL (6.4-8.9) L 08/31/18 05:48 Albumin 3.5 g/dL (3.2-5.2) 08/31/18 05:48 Globulin 2.6 g/dL (2-4) 08/31/18 05:48 Albumin/Globulin Ratio 1.3 (1-3) 08/31/18 05:48 Urine Color Yellow 08/31/18 08:23 Urine Appearance Clear 08/31/18 08:23 Urine pH 5.0 (5-9) 08/31/18 08:23 Ur Specific [place] 1.016 (1.010-1.030) 08/31/18 08:23 Urine Protein Negative (Negative) 08/31/18 08:23 Urine Ketones Negative (Negative) 08/31/18 08:23 Urine Blood Negative (Negative) 08/31/18 08:23 Urine Nitrate Negative (Negative) 08/31/18 08:23 Urine Bilirubin Negative (Negative) 08/31/18 08:23 Urine Urobilinogen Negative (Negative) 08/31/18 08:23 Ur Leukocyte Esterase Negative (Negative) 08/31/18 08:23 Urine Glucose Negative (Negative) 08/31/18 08:23 Urine Ascorbic Acid * (Negative) A 08/31/18 08:23 Blood Type A Positive 08/31/18 05:55 Antibody Screen Negative 08/31/18 05:55 Crossmatch See Detail 08/31/18 05:55
[2018-09-04] MEDS: Atorvastatin* 10 MG TAB PO SCH (09:14)
[2018-09-04] MEDS: Docusate CAP* 100 MG PO SCH (09:14)
[2018-09-04] MEDS: Finasteride TAB* 5 MG PO SCH (09:14)
[2018-09-04] MEDS: ARIPiprazole TAB* 2 MG PO SCH (09:14)
[2018-09-04] MEDS: Enoxaparin(*) 30 MG/0.3 ML SYR SUBCUT SCH (09:17)
[2018-09-04] MEDS: ceFAZolin 1 GM* Q8H (AddVan) IVPB SCH ×4 (09:19→22:26)
[2018-09-04] MEDS: oxyCODONE/Acetamin 5/325 MG* TAB PO PRN ×2 (11:09→18:08)
[2018-09-04] MEDS ORDERED: Bisacodyl SUPP* 10 MG SUPP PR PRN (12:29)
--- NOTE | 2018-09-04 12:52 | PN ---
Subjective Date of Service: 09/04/18 Interval History: HOSPITALIST PROGRESS NOTE Patient seen and examined at bedside. Care reviewed and d/w Rodolfo Austin RN. He did not answer my questions. No agitation, tolerating diet. Family History: Unchanged from Admission Social History: Unchanged from Admission Past Medical History: Unchanged from Admission Objective Active Medications: Acetaminophen (Tylenol Tab*) 650 mg PO Q6H PRN PRN Reason: pain/fever Last Admin: 09/04/18 07:55 Dose: 650 mg Aripiprazole (Abilify Tab*) 2 mg PO DAILY [facility] Last Admin: 09/04/18 09:14 Dose: 2 mg Atorvastatin Calcium (Lipitor*) 10 mg PO QAM [facility] Last Admin: 09/04/18 09:14 Dose: 10 mg Bisacodyl (Dulcolax Supp*) 10 mg UT ONCE PRN PRN Reason: CONSTIPATION Docusate Sodium (Colace Cap*) 100 mg PO DAILY [facility] Last Admin: 09/04/18 09:14 Dose: 100 mg Enoxaparin Sodium (Lovenox(*)) 30 mg SUBCUT DAILY [facility] Last Admin: 09/04/18 09:17 Dose: 30 mg Finasteride (Proscar Tab*) 5 mg PO DAILY [facility] Last Admin: 09/04/18 09:14 Dose: 5 mg Cefazolin Sodium 1 gm/ Sodium (Chloride) 50 mls @ 200 mls/hr IVPB Q12H [facility] Stop: 09/05/18 09:14 Last Admin: 09/04/18 09:19 Dose: 200 mls/hr Lactulose (Lactulose*) 30 ml PO DAILY PRN PRN Reason: CONSTIPATION Last Admin: 09/04/18 07:55 Dose: 30 ml Magnesium Hydroxide (Milk Of Magnesia Liq*) 30 ml PO BID PRN PRN Reason: CONSTIPATION Melatonin (Melatonin) 6 mg PO BEDTIME [facility] Last Admin: 09/03/18 22:11 Dose: 6 mg Morphine Sulfate (Morphine Vial*) 1 mg IV Q1H PRN PRN Reason: SEVERE PAIN Last Admin: 09/02/18 04:24 Dose: 1 mg Oxycodone/Acetaminophen (Percocet 5/325 Tab*) 1 tab PO Q4H PRN PRN Reason: PAIN Last Admin: 09/04/18 11:09 Dose: 1 tab Oxycodone/Acetaminophen (Percocet 5/325 Tab*) 2 tab PO Q4H PRN PRN Reason: PAIN Prochlorperazine Edisylate (Compazine Inj*) 5 mg IV Q6H PRN PRN Reason: NAUSEA/VOMITING Senna (Senokot Tab*) 1 tab PO BEDTIME PRN PRN Reason: CONSTIPATION Sertraline HCl (Zoloft*) 25 mg PO BEDTIME [facility] Last Admin: 09/03/18 22:11 Dose: 25 mg Vital Signs - 8 hr 09/04/18 09/04/18 09/04/18 07:48 08:00 11:09 Temperature 98.6 F Pulse Rate 73 Respiratory 16 20 20 Rate Blood Pressure 94/57 (mmHg) O2 Sat by Pulse 97 97 Oximetry 09/04/18 09/04/18 11:28 11:32 Temperature 99.1 F Pulse Rate 37 67 Respiratory 16 Rate Blood Pressure 118/53 (mmHg) O2 Sat by Pulse 98 Oximetry Oxygen Devices in Use Now: None Appearance: Elderly gentleman sitting up in bed in NAD. Eyes: No Scleral Icterus Ears/Nose/Mouth/Throat: Mucous Membranes Moist Neck: Trachea Midline Respiratory: Symmetrical Chest Expansion and Respiratory Effort, Clear to Auscultation Cardiovascular: RRR - Normal S1 and S2 Abdominal: NL Sounds; No Tenderness; No Distention Extremities: - - CDI to left thigh Neurological: - - Alert and awake, did not talk to me Result Diagrams: 09/04/18 04:57 09/04/18 04:57 Assess/Plan/Problems-Billing Assessment: Mr Nguyen is an 87yo M with PMH of dementia, HTN, HLD, BPH, CVA, prostate CA s/ p radiation, CKD stage 3, who presented to ED after a fall, foun to have a periprosthetic femur fracture. - Patient Problems (1) Shannon-prosthetic femoral shaft fracture Comment: - S/p revision left hip arthroplasty, ORIF left proximal femur . - Management as per Ortho. (2) Acute blood loss anemia Comment: - H/H 7.8/23 today - will repeat H/H later and transfuse if Hb<7.0. - BP is on the low normal side, but seems to be perfusing well; renal function is improving - no PRBC right now. (3) Acute urinary retention Comment: - Continues to have urinary retention and was straight cathed multiple times - will replace Thomas. (4) CKD (chronic kidney disease) stage 3, GFR 30-59 ml/min Comment: - Creatinine improving - d/c IVF. (5) Delirium Comment: - Improving - continue supportive care. (6) Dementia Comment: - Continue Sertraline and Abilify. (7) HTN (hypertension) Comment: - BP on the low normal side - off Lisinopril for now. (8) BPH (benign prostatic hyperplasia) Comment: - Continue finasteride. (9) DVT prophylaxis Comment: - Lovenox for 4 weeks. (10) DNR (do not resuscitate) Status and Disposition: Inpatient. Anticipate d/c to [facility] when medically stable.
[2018-09-04] MEDS: Magnesium Hydroxide LIQ* 30 ML UDC PO PRN (15:28)
[2018-09-04 15:47] LABS: Hematocrit 25 % (42-52); Hemoglobin 8.4 g/dl (14.0-18.0)
[2018-09-04] MEDS: Lactated Ringers 1000 ML Bag* 500 ML IV ONE ×2 (20:10→23:28)
[2018-09-04] MEDS ORDERED: Lactated Ringers 1000 ML Bag* 1,000 ML IV SCH (21:13)
[2018-09-04] MEDS ORDERED: Naloxone* 0.4 MG/ML 1 ML VIAL IV PUSH ONE (21:40)
[2018-09-04 22:09] LABS: BUN/Creatinine Ratio 40.7 (8-20); Calcium 8.4 mg/dL (8.6-10.3); Potassium 4.3 mmol/L (3.5-5.0)
[2018-09-04 22:20] LABS: Hematocrit 19 % (42-52); Hemoglobin 6.3 g/dl (14.0-18.0); Mean Corpuscular HGB Conc 33 g/dl (31-36); Mean Corpuscular Hemoglobin 32 pg (27-31); Mean Corpuscular Volume 94 fL (80-94); Mean Platelet Volume 8.6 fL (7.4-10.4); Platelet Count 253 10^3/ul (150-450); Red Blood Count 2.01 10^6/ul (4.00-5.40); Red Cell Distribution Width 16 % (10.5-15); White Blood Count 8.6 10^3/ul (3.5-10.8)
[2018-09-04] MEDS: Melatonin 3 MG TAB PO SCH (23:28)
[2018-09-04] MEDS: Sertraline* 25 MG TAB PO SCH (23:30)
[2018-09-04 23:36] LABS: ABS Basophils 0 10^3/ul (0-0.2); ABS Eosinophils 0 10^3/ul (0-0.6); ABS Lymphocytes 0.9 10^3/ul (1.0-4.8); ABS Monocytes 0.7 10^3/ul (0-0.8); ABS Nucleated RBC 0 10^3/ul; Eosinophil % 0.1 %; Lymphocyte % 9.9 %; Nucleated Red Blood Cells % 0.1; Polychromasia 1+
--- NOTE | 2018-09-04 23:43 | PN ---
Hospitalist Progress Note Date of Service: 09/04/18 Paged to patient due to decreased responsiveness and low BP after being given narcotic pain medication. On observation patient did not respond to painful stimuli and BP was approximately 80/40 manually. Bolus was ordered to which patient's BP did not respond. Labs, urinalysis, CXR, CBC, BMP and Lactic were then ordered with Narcan. Patient's BP responded moderately to Narcan and his mental state improved to a small degree. CBC showed Hemoglobin of 6.3. Patient' s MOLST was reviewed and states comfort measures only, however, patient has already received blood this admission. All 3 of patient's sons listed in the medical record were unable to be reached. It is stated several times in the medical record that it was planned to transfuse patient below hemoglobin of 7. Patient will be transfused 2u PRBC with a recheck already scheduled for the AM.
[2018-09-05 01:09] LABS: Urine Appearance Cloudy; Urine Bacteria Absent (Absent); Urine Bilirubin Negative (Negative); Urine Blood 3+ (Negative); Urine Color Yellow; Urine Glucose Negative (Negative); Urine Ketones Negative (Negative); Urine Nitrite Negative (Negative); Urine Protein Negative (Negative); Urine Red Blood Cell 1+(3-5/hpf) (Absent); Urine Specific Gravity 1.017 (1.010-1.030); Urine Urobilinogen Negative (Negative); Urine White Blood Cell 2+(11-20/hpf) (Absent)
[2018-09-05] MEDS: Acetaminophen TAB* 325 MG PO PRN ×2 (05:57→21:02)
[2018-09-05 06:26] LABS: ABS Basophils 0 10^3/ul (0-0.2); ABS Eosinophils 0 10^3/ul (0-0.6); ABS Lymphocytes 0.9 10^3/ul (1.0-4.8); ABS Monocytes 0.6 10^3/ul (0-0.8); ABS Neutrophils 6.6 10^3/ul (1.5-7.7); ABS Nucleated RBC 0 10^3/ul; Eosinophil % 0.5 %; Hematocrit 27 % (42-52); Hemoglobin 9.2 g/dl (14.0-18.0); Lymphocyte % 11.2 %; Mean Corpuscular HGB Conc 34 g/dl (31-36); Mean Corpuscular Hemoglobin 31 pg (27-31); Mean Corpuscular Volume 93 fL (80-94); Mean Platelet Volume 8.4 fL (7.4-10.4); Nucleated Red Blood Cells % 0; Platelet Count 233 10^3/ul (150-450); Red Blood Count 2.93 10^6/ul (4.00-5.40); Red Cell Distribution Width 16 % (10.5-15); White Blood Count 8.2 10^3/ul (3.5-10.8)
[2018-09-05 06:44] LABS: BUN/Creatinine Ratio 43.5 (8-20); Calcium 8.5 mg/dL (8.6-10.3); EGFR Non-African American 60.2 (>60); Potassium 4.4 mmol/L (3.5-5.0)
[2018-09-05] MEDS ORDERED: Pneumococcal *Vac Polyvalent 0.5 ML VIAL IM ONE (09:00)
[2018-09-05] MEDS: Docusate CAP* 100 MG PO SCH (09:00)
[2018-09-05] MEDS: ceFAZolin 1 GM* Q8H (AddVan) IVPB SCH ×2 (09:00)
[2018-09-05] MEDS: Finasteride TAB* 5 MG PO SCH (09:00)
[2018-09-05] MEDS: ARIPiprazole TAB* 2 MG PO SCH (09:13)
[2018-09-05] MEDS: Atorvastatin* 10 MG TAB PO SCH (09:14)
--- NOTE | 2018-09-05 11:54 | PN ---
Progress Note - Progress Note Date of Service: 09/05/18 SOAP: Subjective: []Patient seen at bedside with nursing help. He is alert, answering questions more appropriately this am. Cooperative. Objective: [] Vital Signs Temp 97.9 F 09/05/18 07:31 Pulse 57 09/05/18 07:31 Resp 18 09/05/18 08:30 BP 100/58 09/05/18 07:31 Pulse Ox 99 09/05/18 08:30 Intake & Output 09/04/18 09/05/18 09/05/18 18:59 06:59 18:59 Intake Total 1085 2675 80 Output Total 400 650 Balance 685 2025 80 Weight 193 lb 1.6 oz Intake: IV Fluids 75 2195 ABX - CEFAZOLIN 55 55 LR 1481 NS (0.9%) 20 30 packed red blood cells 629 Oral 1010 480 80 Output: Thomas 400 650 Other: Date of Last Bowel 09/04/17 Movement # Bowel Movements 1 Estimated Stool Amount Large Laboratory Results - last 24 hr 09/04/18 09/04/18 09/04/18 15:18 21:37 21:37 WBC RBC Hgb 8.4 L Hct 25 L MCV MCH MCHC RDW Plt Count MPV Neut % (Auto) Lymph % (Auto) [place] % (Auto) Eos % (Auto) Baso % (Auto) Absolute Neuts (auto) Absolute Lymphs (auto) Absolute Monos (auto) Absolute Eos (auto) Absolute Basos (auto) Absolute Nucleated RBC Nucleated RBC % Polychromasia Hypochromasia Anisocytosis Sodium 143 Potassium 4.3 Chloride 113 H Carbon Dioxide 24 Anion Gap 6 BUN 55 H Creatinine 1.35 H Est GFR ( Amer) 60.5 Est GFR (Non-Af Amer) 50.0 BUN/Creatinine Ratio 40.7 H Glucose 135 H Lactic Acid 1.7 Calcium 8.4 L Urine Color Urine Appearance Urine pH Ur Specific [place] Urine Protein Urine Ketones Urine Blood Urine Nitrate Urine Bilirubin Urine Urobilinogen Ur Leukocyte Esterase Urine WBC (Auto) Urine RBC (Auto) Ur Squamous Epith Cells Urine Bacteria Urine Glucose Blood Type Antibody Screen Crossmatch 09/04/18 09/04/18 09/05/18 21:55 21:55 00:50 WBC 8.6 RBC 2.01 L Hgb 6.3 L* Hct 19 L MCV 94 MCH 32 H MCHC 33 RDW 16 H Plt Count 253 MPV 8.6 Neut % (Auto) 82.2 Lymph % (Auto) 9.9 [place] % (Auto) 7.6 Eos % (Auto) 0.1 Baso % (Auto) 0.2 Absolute Neuts (auto) 7.0 Absolute Lymphs (auto) 0.9 L Absolute Monos (auto) 0.7 Absolute Eos (auto) 0 Absolute Basos (auto) 0 Absolute Nucleated RBC 0 Nucleated RBC % 0.1 Polychromasia 1+ Hypochromasia 1+ Anisocytosis 2+ Sodium Potassium Chloride Carbon Dioxide Anion Gap BUN Creatinine Est GFR ( Amer) Est GFR (Non-Af Amer) BUN/Creatinine Ratio Glucose Lactic Acid Calcium Urine Color Yellow Urine Appearance Cloudy Urine pH 5.0 Ur Specific [place] 1.017 Urine Protein Negative Urine Ketones Negative Urine Blood 3+ A Urine Nitrate Negative Urine Bilirubin Negative Urine Urobilinogen Negative Ur Leukocyte Esterase Trace A Urine WBC (Auto) 2+(11-20/hpf) A Urine RBC (Auto) 1+(3-5/hpf) A Ur Squamous Epith Cells Present A Urine Bacteria Absent Urine Glucose Negative Blood Type A Positive Antibody Screen Negative Crossmatch See Detail 09/05/18 09/05/18 05:18 05:18 WBC 8.2 RBC 2.93 L Hgb 9.2 L Hct 27 L MCV 93 MCH 31 MCHC 34 RDW 16 H Plt Count 233 MPV 8.4 Neut % (Auto) 80.4 Lymph % (Auto) 11.2 [place] % (Auto) 7.3 Eos % (Auto) 0.5 Baso % (Auto) 0.6 Absolute Neuts (auto) 6.6 Absolute Lymphs (auto) 0.9 L Absolute Monos (auto) 0.6 Absolute Eos (auto) 0 Absolute Basos (auto) 0 Absolute Nucleated RBC 0 Nucleated RBC % 0 Polychromasia Hypochromasia Anisocytosis Sodium 143 Potassium 4.4 Chloride 113 H Carbon Dioxide 26 Anion Gap 4 BUN 50 H Creatinine 1.15 Est GFR ( Amer) 72.8 Est GFR (Non-Af Amer) 60.2 BUN/Creatinine Ratio 43.5 H Glucose 116 H Lactic Acid Calcium 8.5 L Urine Color Urine Appearance Urine pH Ur Specific [place] Urine Protein Urine Ketones Urine Blood Urine Nitrate Urine Bilirubin Urine Urobilinogen Ur Leukocyte Esterase Urine WBC (Auto) Urine RBC (Auto) Ur Squamous Epith Cells Urine Bacteria Urine Glucose Blood Type Antibody Screen Crossmatch Left hip dressings were taken down, moderate serosanguenous discharge on dressings, no active oozing from lateral thigh incision, no erythema Thigh swollen but compartments are soft no calf edema or over tenderness to palpation New 4x4s and tape applied with nursing help left thigh Assessment: []s/p ORIF/ revision femoral component- periprosthetic left hip fracture POD #3 Plan: []Received 2 units PRBC last night, H&H improved Abduction pillow donned Dressing changes as needed prn saturation OOB to chair PWB LLE Transfer to [facility] when medically stable
[2018-09-05 14:28] LABS: ABS Basophils 0 10^3/ul (0-0.2); ABS Eosinophils 0.1 10^3/ul (0-0.6); ABS Lymphocytes 0.8 10^3/ul (1.0-4.8); ABS Monocytes 0.5 10^3/ul (0-0.8); ABS Neutrophils 6.4 10^3/ul (1.5-7.7); ABS Nucleated RBC 0 10^3/ul; Eosinophil % 1.2 %; Hematocrit 26 % (42-52); Hemoglobin 8.9 g/dl (14.0-18.0); Lymphocyte % 10.8 %; Mean Corpuscular HGB Conc 34 g/dl (31-36); Mean Corpuscular Hemoglobin 31 pg (27-31); Mean Corpuscular Volume 91 fL (80-94); Mean Platelet Volume 8.1 fL (7.4-10.4); Nucleated Red Blood Cells % 0; Platelet Count 229 10^3/ul (150-450); Red Blood Count 2.88 10^6/ul (4.00-5.40); Red Cell Distribution Width 15 % (10.5-15); White Blood Count 7.8 10^3/ul (3.5-10.8)
--- NOTE | 2018-09-05 17:58 | PN ---
Subjective Date of Service: 09/05/18 Interval History: Pt seen and examined. Meds and labs reviewed. Pt received Narcan yesterday given lethargic and was hypotensive responsive to bolus. Pt responded w/ treatment and likely due to oversedation due to pain meds. S/P 2 units of PRBC yesterday CC: N/A ROS: Denied BROCK/dizziness, F/C, N/V, CP, SOB, increased cough, sputum production , abd pain, diarrhea, constipation, dysuria, myalgias, arthralgias, throat pain , and new skin lesions. The rest of the 14 point ROS are unremarkable. PHYSICAL EXAM: GEN APPEARANCE: Awake, not in acute distress HEENT: NC/AT, PERRLA, moist oral mucosa, (-) throat erythema NECK: Soft, supple, (-) cervical LAD, (-)JVD HEART: S1S2 WNL, RRR, No MRG CHEST: CTA, BL, GAE, No W/R/R ABD: Soft, ND/NT, NABS 4x Q EXT: No C/C/E SKIN: Warm to touch PSYCH: No active psychosis, hallucinations, depression, SI/HI Family History: Unchanged from Admission Social History: Unchanged from Admission Past Medical History: Unchanged from Admission Objective Active Medications: Acetaminophen (Tylenol Tab*) 650 mg PO Q6H PRN PRN Reason: pain/fever Last Admin: 09/05/18 05:57 Dose: 650 mg Aripiprazole (Abilify Tab*) 2 mg PO DAILY [facility] Last Admin: 09/05/18 09:13 Dose: 2 mg Atorvastatin Calcium (Lipitor*) 10 mg PO QAM [facility] Last Admin: 09/05/18 09:14 Dose: 10 mg Bisacodyl (Dulcolax Supp*) 10 mg MA ONCE PRN PRN Reason: CONSTIPATION Last Admin: 09/04/18 17:34 Dose: 10 mg Docusate Sodium (Colace Cap*) 100 mg PO DAILY [facility] Last Admin: 09/05/18 09:00 Dose: 100 mg Finasteride (Proscar Tab*) 5 mg PO DAILY [facility] Last Admin: 09/05/18 09:00 Dose: 5 mg Lactulose (Lactulose*) 30 ml PO DAILY PRN PRN Reason: CONSTIPATION Last Admin: 09/04/18 07:55 Dose: 30 ml Magnesium Hydroxide (Milk Of Magnfaye Liq*) 30 ml PO BID PRN PRN Reason: CONSTIPATION Last Admin: 09/04/18 15:28 Dose: 30 ml Melatonin (Melatonin) 6 mg PO BEDTIME [facility] Last Admin: 09/04/18 23:28 Dose: Not Given Morphine Sulfate (Morphine Vial*) 1 mg IV Q1H PRN PRN Reason: SEVERE PAIN Last Admin: 09/02/18 04:24 Dose: 1 mg Oxycodone/Acetaminophen (Percocet 5/325 Tab*) 1 tab PO Q4H PRN PRN Reason: PAIN Last Admin: 09/04/18 18:08 Dose: 1 tab Oxycodone/Acetaminophen (Percocet 5/325 Tab*) 2 tab PO Q4H PRN PRN Reason: PAIN Prochlorperazine Edisylate (Compazine Inj*) 5 mg IV Q6H PRN PRN Reason: NAUSEA/VOMITING Senna (Senokot Tab*) 1 tab PO BEDTIME PRN PRN Reason: CONSTIPATION Sertraline HCl (Zoloft*) 25 mg PO BEDTIME [facility] Last Admin: 09/04/18 23:30 Dose: 25 mg Vital Signs - 8 hr 09/05/18 09/05/18 09/05/18 11:36 15:29 16:00 Temperature 98.0 F 98.1 F Pulse Rate 54 55 Respiratory 18 19 Rate Blood Pressure 118/53 121/46 (mmHg) O2 Sat by Pulse 100 99 99 Oximetry Oxygen Devices in Use Now: Nasal Cannula Result Diagrams: 09/05/18 14:17 09/05/18 05:18 Additional Lab and Data: Lab Results 08/31/18 08/31/18 08/31/18 Range/Units 05:55 05:55 05:55 WBC 6.9 (3.5-10.8) 10^3/ul RBC 3.36 L (4.00-5.40) 10^6/ul Hgb 10.3 L (14.0-18.0) g/dl Hct 32 L (42-52) % MCV 94 (80-94) fL MCH 31 (27-31) pg MCHC 33 (31-36) g/dl RDW 16 H (10.5-15) % Plt Count 257 (150-450) 10^3/ul MPV 7.8 (7.4-10.4) fL Neut % (Auto) 62.2 % Lymph % (Auto) 26.8 % [place] % (Auto) 8.7 % Eos % (Auto) 1.7 % Baso % (Auto) 0.6 % Absolute Neuts (auto) 4.3 (1.5-7.7) 10^3/ul Absolute Lymphs (auto) 1.9 (1.0-4.8) 10^3/ul Absolute Monos (auto) 0.6 (0-0.8) 10^3/ul Absolute Eos (auto) 0.1 (0-0.6) 10^3/ul Absolute Basos (auto) 0 (0-0.2) 10^3/ul Absolute Nucleated RBC 0 10^3/ul Nucleated RBC % 0 INR (Anticoag Therapy) 0.98 (0.77-1.02) APTT 27.2 (26.0-36.3) seconds Blood Type A Positive Antibody Screen Pending Microbiology and Other Data: Microbiology 08/31/18 11:37 Nasal Screen MRSA (PCR) - Final Nasal Mrsa Not Detected Assess/Plan/Problems-Billing Assessment: Mr Nguyen is an 87yo M with PMH of dementia, HTN, HLD, BPH, CVA, prostate CA s/ p radiation, CKD stage 3, who presented to ED after a fall, foun to have a periprosthetic femur fracture. - Patient Problems (1) Shannon-prosthetic femoral shaft fracture Current Visit: Yes Status: Acute Code(s): M97.8XXA - PERIPROSTH FRACTURE AROUND OTHER INTERNAL PROSTH JOINT, INIT; Z96.649 - PRESENCE OF UNSPECIFIED ARTIFICIAL HIP JOINT SNOMED Code(s): 777340662 Comment: - S/p revision left hip arthroplasty, ORIF left proximal femur 09/02. - Management as per Ortho. (2) Acute blood loss anemia Current Visit: Yes Status: Acute Code(s): D62 - ACUTE POSTHEMORRHAGIC ANEMIA SNOMED Code(s): 399883377 Comment: -Repeat CBC relatively stable at 2 PM; will repeat at 10 PM - BP is on the low normal side, but seems to be perfusing well; renal function is improving - no PRBC right now. (3) Acute urinary retention Current Visit: Yes Status: Acute Code(s): R33.8 - OTHER RETENTION OF URINE SNOMED Code(s): 232319067 Comment: - Continues to have urinary retention and was straight cathed multiple times - will replace Thomas. (4) CKD (chronic kidney disease) stage 3, GFR 30-59 ml/min Current Visit: Yes Status: Acute Code(s): N18.3 - CHRONIC KIDNEY DISEASE, STAGE 3 (MODERATE) SNOMED Code(s): 456003119 Comment: - Creatinine improving - d/c IVF. (5) Delirium Current Visit: Yes Status: Acute Code(s): R41.0 - DISORIENTATION, UNSPECIFIED SNOMED Code(s): 8122797 Comment: - Improving - continue supportive care. (6) Dementia Current Visit: Yes Status: Acute Code(s): F03.90 - UNSPECIFIED DEMENTIA WITHOUT BEHAVIORAL DISTURBANCE SNOMED Code(s): 08320290 Comment: - Continue Sertraline and Abilify. (7) HTN (hypertension) Current Visit: Yes Status: Acute Code(s): I10 - ESSENTIAL (PRIMARY) HYPERTENSION SNOMED Code(s): 21377622 Comment: - BP on the low normal side - off Lisinopril for now. (8) BPH (benign prostatic hyperplasia) Current Visit: Yes Status: Acute Code(s): N40.0 - BENIGN PROSTATIC HYPERPLASIA WITHOUT LOWER URINRY TRACT SYMP SNOMED Code(s): 035313873 Comment: - Continue finasteride. (9) DVT prophylaxis Current Visit: Yes Status: Acute Code(s): TCL4603 - SNOMED Code(s): 648267295 Comment: -Continue SCDs Status and Disposition: -Possible D/C to [facility] in AM
[2018-09-05] MEDS: Melatonin 3 MG TAB PO SCH (21:02)
[2018-09-05] MEDS: Sertraline* 25 MG TAB PO SCH (21:03)
[2018-09-05 21:18] LABS: ABS Basophils 0 10^3/ul (0-0.2); ABS Eosinophils 0.1 10^3/ul (0-0.6); ABS Lymphocytes 1.1 10^3/ul (1.0-4.8); ABS Monocytes 0.8 10^3/ul (0-0.8); ABS Neutrophils 7.2 10^3/ul (1.5-7.7); ABS Nucleated RBC 0 10^3/ul; Eosinophil % 1.2 %; Hematocrit 30 % (42-52); Lymphocyte % 11.8 %; Mean Corpuscular HGB Conc 33 g/dl (31-36); Mean Corpuscular Hemoglobin 31 pg (27-31); Mean Corpuscular Volume 93 fL (80-94); Mean Platelet Volume 8.3 fL (7.4-10.4); Nucleated Red Blood Cells % 0.2; Platelet Count 258 10^3/ul (150-450); Red Blood Count 3.23 10^6/ul (4.00-5.40); Red Cell Distribution Width 16 % (10.5-15); White Blood Count 9.2 10^3/ul (3.5-10.8)
[2018-09-06 05:57] LABS: ABS Basophils 0 10^3/ul (0-0.2); ABS Eosinophils 0.1 10^3/ul (0-0.6); ABS Lymphocytes 0.9 10^3/ul (1.0-4.8); ABS Monocytes 0.5 10^3/ul (0-0.8); ABS Neutrophils 5.4 10^3/ul (1.5-7.7); ABS Nucleated RBC 0 10^3/ul; Eosinophil % 1.8 %; Hematocrit 27 % (42-52); Hemoglobin 9.1 g/dl (14.0-18.0); Mean Corpuscular HGB Conc 34 g/dl (31-36); Mean Corpuscular Hemoglobin 31 pg (27-31); Mean Corpuscular Volume 93 fL (80-94); Mean Platelet Volume 7.9 fL (7.4-10.4); Nucleated Red Blood Cells % 0.1; Platelet Count 252 10^3/ul (150-450); Red Blood Count 2.89 10^6/ul (4.00-5.40); Red Cell Distribution Width 16 % (10.5-15); White Blood Count 6.9 10^3/ul (3.5-10.8)
[2018-09-06 06:21] LABS: Albumin 2.6 g/dL (3.2-5.2); Albumin/Globulin Ratio 1.1 (1-3); Calcium 8.6 mg/dL (8.6-10.3); EGFR Non-African American 65.4 (>60); Globulin 2.4 g/dL (2-4); Magnesium 2.3 mg/dL (1.9-2.7); Phosphorus 2.3 mg/dL (2.5-5.0); Potassium 4.1 mmol/L (3.5-5.0); Total Bilirubin 0.8 mg/dL (0.2-1.0)
--- NOTE | 2018-09-06 07:10 | PN ---
Progress Note - Progress Note Date of Service: 09/06/18 SOAP: Subjective: resting comfortably with no complaints Objective: Vital Signs Temp Pulse Resp BP Pulse Ox 98.1 F 54 16 128/69 99 09/06/18 04:56 09/06/18 04:56 09/06/18 04:56 09/06/18 04:56 09/06/18 04:56 Laboratory Last Values WBC 6.9 10^3/ul (3.5-10.8) 09/06/18 05:46 RBC 2.89 10^6/ul (4.00-5.40) L 09/06/18 05:46 Hgb 9.1 g/dl (14.0-18.0) L 09/06/18 05:46 Hct 27 % (42-52) L 09/06/18 05:46 MCV 93 fL (80-94) 09/06/18 05:46 MCH 31 pg (27-31) 09/06/18 05:46 MCHC 34 g/dl (31-36) 09/06/18 05:46 RDW 16 % (10.5-15) H 09/06/18 05:46 Plt Count 252 10^3/ul (150-450) 09/06/18 05:46 MPV 7.9 fL (7.4-10.4) 09/06/18 05:46 Neut % (Auto) 77.8 % 09/06/18 05:46 Lymph % (Auto) 13.0 % 09/06/18 05:46 [place] % (Auto) 7.1 % 09/06/18 05:46 Eos % (Auto) 1.8 % 09/06/18 05:46 Baso % (Auto) 0.3 % 09/06/18 05:46 Absolute Neuts (auto) 5.4 10^3/ul (1.5-7.7) 09/06/18 05:46 Absolute Lymphs (auto) 0.9 10^3/ul (1.0-4.8) L 09/06/18 05:46 Absolute Monos (auto) 0.5 10^3/ul (0-0.8) 09/06/18 05:46 Absolute Eos (auto) 0.1 10^3/ul (0-0.6) 09/06/18 05:46 Absolute Basos (auto) 0 10^3/ul (0-0.2) 09/06/18 05:46 Absolute Nucleated RBC 0 10^3/ul 09/06/18 05:46 Nucleated RBC % 0.1 09/06/18 05:46 Polychromasia 1+ 09/04/18 21:55 Hypochromasia 1+ 09/04/18 21:55 Anisocytosis 2+ 09/04/18 21:55 INR (Anticoag Therapy) 1.19 (0.77-1.02) H 09/02/18 04:47 APTT 27.2 seconds (26.0-36.3) 08/31/18 05:55 Sodium 143 mmol/L (135-145) 09/06/18 05:46 Potassium 4.1 mmol/L (3.5-5.0) 09/06/18 05:46 Chloride 112 mmol/L (101-111) H 09/06/18 05:46 Carbon Dioxide 28 mmol/L (22-32) 09/06/18 05:46 Anion Gap 3 mmol/L (2-11) 09/06/18 05:46 BUN 46 mg/dL (6-24) H 09/06/18 05:46 Creatinine 1.07 mg/dL (0.67-1.17) 09/06/18 05:46 Est GFR ( Amer) 79.1 (>60) 09/06/18 05:46 Est GFR (Non-Af Amer) 65.4 (>60) 09/06/18 05:46 BUN/Creatinine Ratio 43.0 (8-20) H 09/06/18 05:46 Glucose 108 mg/dL (70-100) H 09/06/18 05:46 Lactic Acid 1.7 mmol/L (0.5-2.0) 09/04/18 21:37 Calcium 8.6 mg/dL (8.6-10.3) 09/06/18 05:46 Phosphorus 2.3 mg/dL (2.5-5.0) L 09/06/18 05:46 Magnesium 2.3 mg/dL (1.9-2.7) 09/06/18 05:46 Total Bilirubin 0.80 mg/dL (0.2-1.0) 09/06/18 05:46 AST 31 U/L (13-39) 09/06/18 05:46 ALT 9 U/L (7-52) 09/06/18 05:46 Alkaline Phosphatase 58 U/L (34-104) 09/06/18 05:46 Troponin I 0.03 ng/mL (<0.04) 08/31/18 05:48 Total Protein 5.0 g/dL (6.4-8.9) L 09/06/18 05:46 Albumin 2.6 g/dL (3.2-5.2) L 09/06/18 05:46 Globulin 2.4 g/dL (2-4) 09/06/18 05:46 Albumin/Globulin Ratio 1.1 (1-3) 09/06/18 05:46 Urine Color Yellow 09/05/18 00:50 Urine Appearance Cloudy 09/05/18 00:50 Urine pH 5.0 (5-9) 09/05/18 00:50 Ur Specific [place] 1.017 (1.010-1.030) 09/05/18 00:50 Urine Protein Negative (Negative) 09/05/18 00:50 Urine Ketones Negative (Negative) 09/05/18 00:50 Urine Blood 3+ (Negative) A 09/05/18 00:50 Urine Nitrate Negative (Negative) 09/05/18 00:50 Urine Bilirubin Negative (Negative) 09/05/18 00:50 Urine Urobilinogen Negative (Negative) 09/05/18 00:50 Ur Leukocyte Esterase Trace (Negative) A 09/05/18 00:50 Urine WBC (Auto) 2+(11-20/hpf) (Absent) A 09/05/18 00:50 Urine RBC (Auto) 1+(3-5/hpf) (Absent) A 09/05/18 00:50 Ur Squamous Epith Cells Present (Absent) A 09/05/18 00:50 Urine Bacteria Absent (Absent) 09/05/18 00:50 Urine Glucose Negative (Negative) 09/05/18 00:50 Urine Ascorbic Acid * (Negative) A 08/31/18 08:23 Blood Type A Positive 09/04/18 21:55 Antibody Screen Negative 09/04/18 21:55 Crossmatch See Detail 09/04/18 21:55 incision: c/d/i PE: nvi Assessment: s/p ORIF left periprosthetic fracture Plan: 1) partial WB LLE 2) hospitalist co-managing 3) [place] when stable
[2018-09-06] MEDS: Acetaminophen TAB* 325 MG PO PRN ×2 (07:18→15:25)
[2018-09-06] MEDS ORDERED: Sodium Phosphate INJ* 15 MMOLE in NS 0.9% 250 ML* 250 ML IVPB ONE (08:23)
[2018-09-06] MEDS: Atorvastatin* 10 MG TAB PO SCH (08:29)
[2018-09-06] MEDS: Finasteride TAB* 5 MG PO SCH (08:29)
[2018-09-06] MEDS: Docusate CAP* 100 MG PO SCH (08:29)
[2018-09-06] MEDS: ARIPiprazole TAB* 2 MG PO SCH (08:29)
[2018-09-06] MEDS: Magnesium Hydroxide LIQ* 30 ML UDC PO PRN (08:30)
[2018-09-06] MEDS ORDERED: Potassium & Sodium Phos 250MG* = 1 PACKET PO STA (12:42)
--- NOTE | 2018-09-06 14:01 | DS ---
CC: Dr. Yudelka Bell; Dr. Inderjit Elliott; Dr. Jabari Rice; Dr. Reid Herrera DISCHARGE SUMMARY: DATE OF ADMISSION: DATE OF DISCHARGE: 09/06/18 DISCHARGE DIAGNOSES: As follows: 1. Periprosthetic femoral shaft fracture, status post left hip arthroplasty and ORIF of left proxima l femur. 2. Acute blood loss anemia, H and H have stabilized; the patient may resume low- dose Lovenox for DV T prophylaxis on 09/07/18. 3. History of chronic kidney disease. 4. History of dementia. DISCHARGE MEDICATIONS: As follows: 1. Aripiprazole 2 mg p.o. daily. 2. Atorvastatin 10 mg p.o. q.a.m. 3. Colace 100 mg p.o. daily. 4. Finasteride 5 mg p.o. daily. 5. Lactulose 30 mL p.o. daily. 6. Melatonin 5 mg p.o. daily. 7. Percocet 1 tab p.o. q.4 p.r.n. 8. Sertraline 25 mg p.o. q.h.s. 9. Tylenol 500 mg p.o. b.i.d. 10. Lovenox 30 mg subcu daily to start the following day after discharge. 11. Lisinopril 5 mg p.o. q.a.m. 12. Senna Plus 2 tabs p.o. q.h.s. HISTORY OF PRESENT ILLNESS/HOSPITAL COURSE: The patient is an 87-year-old gentleman with a history of dementia, hypertension, and BPH, as well as CVA in 2012, who was brought into the emergen cy room after sustaining a fall where he was diagnosed with left periprosthetic hip fracture. He was seen in consultation by Dr. Rice and underwent revision of left total hip arthroplasty with excha nge/change of femoral component, status post ORIF of left proximal femur in the area of the trochante r with lateral plate and cerclage cables placed on 09/02/18. Postoperatively, he was noted to have a n acute postop blood anemia and has been transfused with at least 2 units of PRBC while his DVT proph ylaxis has been withheld for at least 2 or 3 days, and during that time, his H and H post transfusion have been stable. I have touched base with Ms. Willis as well as Dr. Rice prior to the patient 's discharge who both agree with plan of continuing to hold Lovenox until the following day upon disc harge and to repeat blood work on Saturday, and hence we will defer. The patient had been advised toe-touch weightbearing of operative extremity and to use an abduction p illow while in bed with posterior hip precautions, and may take a shower on postop day 3 and let soap and water rinse over the incision and pat it dry while not submerging the wound, and to have the pat ient follow up with Dr. Rice in 14 days postop. He was also advised to follow up and/or call his PCP within 3 days post discharge from his rehab facility and again he was reminded to restart his [place] enox for DVT prophylaxis starting the following day of his discharge and to repeat his blood draw on Saturday. He was advised that if his symptoms resume or develop new ones or feel unwell for any reason , to first call his PCP/facility [facility], and if his PCP cannot entertain him due to scheduling issues alone, to call [facility] if the issue is nonemergent. He was advised to call my office reg arding any questions, concerns, or further clarifications regarding his discharge plans and/or prescr iptions and to take his medications as prescribed. REVIEW OF SYSTEMS: The patient denied any recent headaches, dizziness, fevers, chills, nausea, vomit ing, chest pain, shortness of breath, increased coughing or sputum production, abdominal pain, diarrh ea, constipation, pain and/or increased frequency on urination, myalgias, arthralgias, throat pain, o r new skin lesions. The rest of the 14-point review of systems is otherwise unremarkable. PHYSICAL EXAMINATION: Shows the most recent vital signs of records with blood pressure of 146/53, 98 .3 degrees Fahrenheit, 58 beats per minute heart rate, 18 per minute respiratory rate, saturating at 97% on room air. General Appearance: The patient is awake, not in acute distress. HEENT: Normocep halic, atraumatic. PERRLA. Extraocular muscles intact. Negative for icterus. Moist oral mucosa. Ne gative throat erythema. Neck is soft, supple with no cervical lymphadenopathy, no JVD. Heart: S1, S2, within normal limits. Regular rate and rhythm. No murmurs, rubs, or gallops. Chest: Clear to auscultation bilaterally. Good air entry. No wheezes, rales, or rhonchi. Abdomen is soft, nondiste nded, nontender. Normoactive bowel sounds x4 quadrants. Extremities: No cyanosis or clubbing. Psych iatric: No active psychosis, depression, suicidal or homicidal ideation. Skin is warm to touch. TIME SPENT: The total time spent evaluating the patient, reviewing pertinent data, and appropriate d ocumentation is 55 minutes. [id number]/CPS #: [id number]
[2018-09-06 15:40] VITALS: BP 149/65
== END 2018-09-06 16:40 | DRG 467 ==
LOC: ED 05:20 → SSU 07:49
PROVIDERS: ADMIT Internal Medicine; ATTEND Student in an Organized Health Care Education/Training Program
PROC: 30233N1 Transfusion of Nonautologous Red Blood Cells into Peripheral Vein, Percutaneous Approach (ICD-10-PCS; 2018-09-02)
PROC: 0SRS01Z Replacement of Left Hip Joint, Femoral Surface with Metal Synthetic Substitute, Open Approach (ICD-10-PCS; principal; 2018-09-05)
PROC: 0SPS0JZ Removal of Synthetic Substitute from Left Hip Joint, Femoral Surface, Open Approach (ICD-10-PCS; 2018-09-05)
PROC: 0QS704Z Reposition Left Upper Femur with Internal Fixation Device, Open Approach (ICD-10-PCS; 2018-09-05)
DX: S72.002A Fracture of unspecified part of neck of left femur, initial encounter for closed fracture (principal); D62 Acute posthemorrhagic anemia; T84.031A Mechanical loosening of internal left hip prosthetic joint, initial encounter; M97.02XA Periprosthetic fracture around internal prosthetic left hip joint, initial encounter; N40.0 Benign prostatic hyperplasia without lower urinary tract symptoms; E78.5 Hyperlipidemia, unspecified; Z96.643 Presence of artificial hip joint, bilateral; G30.9 Alzheimer's disease, unspecified; F02.80 Dementia in other diseases classified elsewhere, unspecified severity, without behavioral disturbance, psychotic disturbance, mood disturbance, and anxiety; I12.9 Hypertensive chronic kidney disease with stage 1 through stage 4 chronic kidney disease, or unspecified chronic kidney disease; N18.3 Chronic kidney disease, stage 3 (moderate); H26.9 Unspecified cataract; W19.XXXA Unspecified fall, initial encounter; Z66 Do not resuscitate; R41.0 Disorientation, unspecified; R33.9 Retention of urine, unspecified; I95.9 Hypotension, unspecified; Z86.73 Personal history of transient ischemic attack (TIA), and cerebral infarction without residual deficits; Z85.46 Personal history of malignant neoplasm of prostate; Z92.3 Personal history of irradiation; Z88.8 Allergy status to other drugs, medicaments and biological substances; Z80.42 Family history of malignant neoplasm of prostate; Z79.01 Long term (current) use of anticoagulants; Y92.89 Other specified places as the place of occurrence of the external cause
CPT/HCPCS: 36415; 71045; 71275; 72170; 76000; 80048; 80053; 81003; 81015; 83605; 83735; 84100; 84484; 85014; 85018; 85025; 85610; 85730; 86850; 86900; 86901; 86922; 87040; 87086; 87641; 88300; 93005; 99284; A9270-GY; C1776; G8978-GP-CM; G8979-GP-CL; G8987-GO-CN; G8988-GO-CM; J0690; J1630; J1644; J1650; J2175; J2270; J2310; J2704; J3010; P9040; Q9967